=== PATIENT | male | born 1955 | race Caucasian/White ===

== ENCOUNTER → 2016-04-22 | Outpatient (CLI) | payer BC ==
[~2016-04-22] MED LIST: ACET1TAB43 PO; CIPR-226 PO; MULT-192 PO; PSYL3.4P5 PO
--- NOTE | 2016-04-22 19:19 | Diagnostic Imaging Report ---
EXAMINATION: Lumbar spine series. INDICATION: Back pain. FINDINGS: Alignment of the lumbar spine appears normal. The vertebral body heights appear maintained. There is disc space height loss at L5-S1 as well as lower lumbar facet arthropathy, most significant at L4-5 and L5-S1. Visualized bones of the pelvis demonstrates no acute abnormality. There is moderate osteoarthritic joint space narrowing within both hips. IMPRESSION: 1. Lower lumbar facet arthropathy with disc space height loss at L5-S1. The vertebral body heights are well maintained, and alignment is normal. Bilateral hip osteoarthritis is also noted. Dictated by: Dictated on workstation # [id number]
== END ==
LOC: RAD 18:56
PROVIDERS: ATTEND Nurse Practitioner Family
DX: M47.816 Spondylosis without myelopathy or radiculopathy, lumbar region (principal); M16.0 Bilateral primary osteoarthritis of hip
CPT/HCPCS: 72100

== ENCOUNTER 2016-07-22 13:23 | Outpatient (CLI) | payer BC ==
[~2016-07-22] VITALS: Ht 177.8 cm; Wt 88.7 kg
[2016-07-22] MEDS ORDERED: MULT-192 PO (13:32)
[2016-07-22] MEDS ORDERED: PSYL3.4P5 PO (13:32)
[2016-07-22 13:36] VITALS: BP 134/84
[2016-07-22 13:52] LABS: BILIRUBIN,URINE NEGATIVE (NEGATIVE); KETONES,URINE NEGATIVE (NEGATIVE); LEUKOCYTE ESTERASE ,URINE NEGATIVE (NEGATIVE); NITRITE,URINE NEGATIVE (NEGATIVE); PH,URINE 6 (5-9); PROTEIN,URINE NEGATIVE (NEGATIVE); UROBILINOGEN,URINE NORMAL (NORMAL)
--- NOTE | 2016-07-22 13:58 | Diagnostic Imaging Report ---
INDICATION: Preoperative evaluation for brachytherapy, no chest complaints. COMPARISON STUDIES: None. FINDINGS: Frontal and lateral views of the chest demonstrate small calcified granuloma in the right midlung. The lungs otherwise clear. The heart, mediastinum, pulmonary vascularity and visualized bony thorax are normal. IMPRESSION: Negative chest. Dictated by: Dictated on workstation # [id number]
[2016-07-29] MEDS ORDERED: ACET1TAB43 PO (13:20)
[2016-07-29] MEDS ORDERED: CIPR-226 PO (13:20)
== END 2016-07-22 14:55 | disposition home or self-care (01) ==
LOC: PREOP 13:23
PROVIDERS: ATTEND Radiology Radiation Oncology
DX: Z01.811 Encounter for preprocedural respiratory examination (principal); Z01.812 Encounter for preprocedural laboratory examination; C61 Malignant neoplasm of prostate
CPT/HCPCS: 71020; 81000

== ENCOUNTER 2016-07-23 10:31 | Outpatient (RCR) | payer BC ==
[~2016-07-23 10:31] MED LIST changes: -ACET1TAB43 PO; -CIPR-226 PO
--- NOTE | 2016-07-27 13:06 | ECHOCARDIOGRAPHY REPORT ---
DATE OF SERVICE: 07/23/2016 TWO-DIMENSIONAL ECHOCARDIOGRAM ORDERING PHYSICIAN: Dr. Cheryl Tomlinson. PRIMARY PHYSICIAN: Dr. Del Fernandez. DIAGNOSES: Irregular pulse, hypertension. FINDINGS: 1. Irregular rhythm secondary to the PACs and PVCs. 2. Left atrial diameter is normal. Left root diameter 3.1 cm. 3. Aortic diameter is 3.5 cm. 4. Normal LV function with an LVEF of 50% to 60%. Mild concentric LVH is noted with diastolic intraventricular septal diameter of 1.2 cm. 5. No wall motion abnormalities. 6. Normal RV size and function. 7. No pericardial effusion. 8. Mild diastolic dysfunction. 9. IVC diameter is 2.2 cm which may suggest increased right atrial pressure. VALVULAR STRUCTURE OF THE HEART: 1. Trace pulmonic regurgitation, trace aortic regurgitation. 2. There is mild tricuspid regurgitation with RVSP of 24 mmHg. There is mild mitral regurgitation. CONCLUSION: 1. Normal LV function with LVEF of 50% to 60%. 2. Mild concentric LVH is noted which suggests hypertensive heart disease. 3. There is no significant valvular heart disease. 4. Mild diastolic dysfunction is noted. 5. IVC is dilated, which may suggest increased right atrial pressure. Job ID: [id number] DocumentID: [id number] Dictated Date: 07/27/2016 12:21:17 Freelance Programmer/App Developer Date: 07/27/2016 12:35:16 Dictated By: IRON TOMLINSON MD MTDD
[2016-07-29] MEDS ORDERED: ACET1TAB43 PO (13:20)
[2016-07-29] MEDS ORDERED: CIPR-226 PO (13:20)
== END 2016-10-21 | disposition home or self-care (01) ==
LOC: CARD 10:31
PROVIDERS: ATTEND Internal Medicine Interventional Cardiology
DX: I10 Essential (primary) hypertension (principal); R00.2 Palpitations
CPT/HCPCS: 93225; 93226; 93306

== ENCOUNTER 2016-07-29 12:30 | Day surgery (SDC) | payer BC ==
[~2016-07-29] VITALS: Ht 177.8 cm; Wt 88.7 kg
[2016-07-29 12:30] VITALS: BP 134/85
[2016-07-29] MEDS ORDERED: LEVOFLOXACIN 500 MG/100 ML IV 100 ML ONE (13:09)
[2016-07-29] MEDS ORDERED: LEVOFLOXACIN 500 MG/100 ML IV 100 ML IV ONE (13:15)
--- NOTE | 2016-07-29 13:17 | Progress Note-Pre Operative ---
Pre-Operative Progress Note H&P Reviewed The H&P was reviewed, patient examined and no changes noted. Date H&P Reviewed: July 29, 2016 Time H&P Reviewed: 12:16 Pre-Operative Diagnosis: Prostate cancer cT1c, PSA 8.2, [place] 7 (4+3) KAREN GONCALVES MD July 29, 2016 13:17
[2016-07-29] MEDS ORDERED: ACET1TAB43 PO (13:20)
[2016-07-29] MEDS ORDERED: CIPR-226 PO (13:20)
--- NOTE | 2016-07-29 13:21 | Discharge Inst-Simple/Standard ---
Discharge Inst-Standard Discharge Medications New, Converted or Re-Newed RX: RX Given to Pt/Family Patient Instructions/Follow Up Plan of Care/Instructions/FU: Keep scheduled appointments with Dr. Hassan and Dr. Salcido as previously given. Activity as Tolerated: Yes Discharge Diet: No Restrictions KAREN SALCIDO MD July 29, 2016 13:21
[2016-07-29] MEDS ORDERED: LACTATED RINGERS 1,000 ML IV PRN (13:33)
[2016-07-29] MEDS ORDERED: fentaNYL INJECTION 100 MCG/2 ML AMP ONE (14:45)
[2016-07-29] MEDS ORDERED: MIDAZOLAM 2 MG/2 ML (VERSED) VIAL ONE (14:45)
[2016-07-29] MEDS ORDERED: DEXAMETHASONE PF 10 MG/ML (DECADRON) VIAL ONE (15:23)
[2016-07-29] MEDS ORDERED: proPOfol 200 MG/20 ML (DIPRIVAN) VIAL IV ONE (15:23)
[2016-07-29] MEDS ORDERED: SEVOFLURANE (ULTANE) 15 ML INHAL SOLN ONE ×2 (15:23→16:14)
[2016-07-29] MEDS ORDERED: LIDOCAINE PF 2% 10 ML (XYLOCAINE) AMP ONE (15:23)
[2016-07-29] MEDS ORDERED: LACTATED RINGERS 2,000 ML IV ONE (15:23)
[2016-07-29] MEDS ORDERED: ONDANSETRON 4 MG/2 ML (SDV) Z0FRAN ONE (15:23)
[2016-07-29] MEDS ORDERED: fentaNYL INJECTION 100 MCG/2 ML AMP IVP PRN (16:30)
[2016-07-29] MEDS: morphine INJ 10 MG/ML 1ML (SYR OR VIAL) IVP PRN ×2 (16:38→16:54)
--- NOTE | 2016-07-29 16:41 | Progress Note-Post Operative ---
Post-Operative Progess Note Surgeon (s)/Middle School Teacher (s) Surgeon KAREN GONCALVES MD Middle School Teacher: Linus MCKEON MD Pre-Operative Diagnosis Prostate cancer cT1c, PSA 8.2, [place] 7 (4+3) Post-Operative Diagnosis Same as pre-op Procedure & Operative Findings Date of Procedure 07/29/16 Procedure Preformed/Findings Prostate volume 40.86 cc Anesthesia Type General Estimated Blood Loss Estimated blood loss (mL): minimal Specimens/Packing Specimens Removed N/A Packing: N/A KAREN GONCALVES MD July 29, 2016 16:41
--- NOTE | 2016-07-29 16:59 | Diagnostic Imaging Report ---
INDICATION: Prostate cancer. IMPRESSION: 8.7 seconds of fluoroscopy was used by Dr. Salcido during brachytherapy seed implant into the prostate. A single digital image shows multiple brachytherapy seeds projecting over the prostate bed. Dictated by: Dictated on workstation # [id number]
[2016-07-29 17:25] VITALS: BP 127/86
[2016-07-29 17:55] VITALS: BP 122/82
[2016-07-29 18:50] VITALS: BP 132/82
[2016-07-29 19:05] VITALS: BP 132/82
== END 2016-07-29 19:05 | disposition home or self-care (01) ==
LOC: SDC 12:30
PROVIDERS: ATTEND Radiology Radiation Oncology
DX: C61 Malignant neoplasm of prostate (principal); Z87.891 Personal history of nicotine dependence
CPT/HCPCS: 0438T; 55875; 76965; 77290; 77332; 77336; 77470; 77778; 77790

== ENCOUNTER → 2016-10-05 | Outpatient (RCR) | payer BC ==
[~2016-10-05] MED LIST changes: +ACET1TAB43 PO; +CIPR-226 PO
== END | disposition home or self-care (01) ==
LOC: ONC 07-07 14:50
PROVIDERS: ATTEND Radiology Radiation Oncology
DX: Z51.0 Encounter for antineoplastic radiation therapy (principal); C61 Malignant neoplasm of prostate
CPT/HCPCS: 76873; 77290; 77300; 77301; 77334; 77336; 77338; 77385; 77470; 99215

== ENCOUNTER 2016-12-08 14:37 | Outpatient (RCR) | payer BC | END 2016-12-19 | disposition home or self-care (01) | LOC: ONC 14:37 | PROVIDERS: ATTEND Radiology Radiation Oncology | DX: Z51.0 Encounter for antineoplastic radiation therapy (principal); C61 Malignant neoplasm of prostate | CPT/HCPCS: 77336; 77385; 99213 ==

== ENCOUNTER 2016-12-31 16:13 | Outpatient (RCR) | payer BC | END 2017-03-31 | disposition home or self-care (01) | LOC: ONC 16:13 | PROVIDERS: ATTEND Radiology Radiation Oncology | DX: C61 Malignant neoplasm of prostate (principal); Z87.891 Personal history of nicotine dependence | CPT/HCPCS: 77295; 77336 ==

== ENCOUNTER 2017-06-08 14:22 | Outpatient (RCR) | payer BC | END 2017-09-06 | disposition home or self-care (01) | LOC: ONC 14:22 | PROVIDERS: ATTEND Radiology Radiation Oncology | DX: C61 Malignant neoplasm of prostate (principal); Z87.891 Personal history of nicotine dependence | CPT/HCPCS: 99213 ==

== ENCOUNTER 2020-09-01 12:05 | Inpatient (IN) | payer BC ==
[~2020-09-01] VITALS: Ht 177 cm; Wt 90.0 kg
[2020-09-01 12:30] LABS: BASOPHILS % (AUTO) 0 % (0-10); EOSINOPHILS % (AUTO) 0 % (0-10); HEMATOCRIT 45 % (40-54); HEMOGLOBIN 15.4 g/dL (13.3-17.7); LYMPHOCYTES % (AUTO) 28 % (12-44); MEAN CORPUSCULAR HEMOGLOBIN 31 pg (25-34); MEAN CORPUSCULAR HGB CONC 34 g/dL (32-36); MEAN CORPUSCULAR VOLUME 92 fL (80-99); MEAN PLATELET VOLUME 9.9 fL (9.0-12.2); MONOCYTES # (AUTO) 0.2 10^3/uL (0.0-1.0); MONOCYTES % (AUTO) 5 % (0-12); NEUTROPHILS # (AUTO) 2.4 10^3/uL (1.8-7.8); NEUTROPHILS % (AUTO) 67 % (42-75); PLATELET COUNT 117 10^3/uL (130-400); WHITE BLOOD COUNT 3.6 10^3/uL (4.3-11.0)
--- NOTE | 2020-09-01 12:31 | ED Cough/URI ---
General Chief Complaint: Respiratory Problems Stated Complaint: COVID POSITIVE/LOW O2 SAT- 85 Source: patient Exam Limitations: no limitations History of Present Illness Date Seen by Provider: Sep 01, 2020 Time Seen by Provider: 12:10 Initial Comments To ER with c/o low O2 saturation as measured by sisters SpO2 monitor at home. Pt became symtomatic Wednesday night 08/27 and tested positive for COVID yesterday 08/31 at [facility]. His medical history is of prostate cancer treated with brachytherapy seeds. No pre-existing lung disease. He complains of insomnia, general body aches, severe overall fatigue. No nausea but he does not have much appetite either. No diarrhea. Timing/Duration: constant, getting worse Severity/Quality: moderate Associated Symptoms: cough, shortness of breath Allergies and Home Medications Allergies Coded Allergies: No Known Drug Allergies (Unverified , 07/22/16) Home Medications Acetaminophen with Codeine 1 Each Tablet, 1 EACH PO PRN PRN for PAIN-MILD Prescribed by: KAREN GONCALVES on 07/29/16 1320 Ciprofloxacin HCl 250 Mg Tablet, 250 MG PO BID Prescribed by: KAREN GONCALVES on 07/29/16 1320 Multivitamin 1 Each Tab.chew, 1 EACH PO DAILY, (Reported) Psyllium Husk/Aspartame 3.4 Gm Powd.pack, 3.4 GM PO DAILY, (Reported) Patient Home Medication List Home Medication List Reviewed: Yes Review of Systems Review of Systems Constitutional: see HPI EENTM: see HPI Respiratory: see HPI, dyspnea on exertion, short of breath Cardiovascular: no symptoms reported Genitourinary: no symptoms reported Musculoskeletal: no symptoms reported Skin: no symptoms reported Psychiatric/Neurological: No Symptoms Reported Hematologic/Lymphatic: No Symptoms Reported Immunological/Allergic: no symptoms reported Past Ztoebtt-Ydsoha-Jcooxb Hx Patient Social History Former Smoker, Quit: July 22, 2001 Recent Hopitalizations: No Immunizations Up To Date Date of Influenza Vaccine: Dec 09, 2015 Seasonal Allergies Seasonal Allergies: No Past Medical History Reproductive Disorders: No Sexually Transmitted Disease: No HIV/AIDS: No Prostate Problems Loss of Vision: Bilateral Hearing Impairment: Denies Prostate Adverse Reaction/Blood Tranf: No Physical Exam Vital Signs - First Documented 09/01/20 12:12 Temp 36.7 Pulse 79 Resp 20 B/P (MAP) 131/80 (97) Capillary Refill : Height: 5'10.00" Weight: 195lbs. 8.0oz. 88.007867gw; 28.1 BMI Method: General Appearance: WD/WN, no apparent distress, other (No distress, ambulates to the room without assistance. Alert and oriented very pleasant. Oxygen saturation on arrival was 90% and dropped to 88% shortly thereafter. Was given supplemental oxygen at 2 L per nasal cannula.) Eyes: Bilateral Eye Normal Inspection, Bilateral Eye PERRL, Bilateral Eye EOMI HEENT: PERRL/EOMI, normal ENT inspection Neck: non-tender, full range of motion Respiratory: no respiratory distress, no accessory muscle use, other (Crackles throughout diminished left base) Cardiovascular: regular rate, rhythm, no murmur Gastrointestinal: normal bowel sounds, non tender, soft Extremities: normal range of motion, non-tender Neurologic/Psychiatric: alert, normal mood/affect, oriented x 3 Skin: normal color, warm/dry Progress/Results/Core Measures Suspected Sepsis SIRS Temperature: Pulse: Respiratory Rate: Laboratory Tests 09/01/20 12:20: White Blood Count 3.6L Blood Pressure / Mean: Laboratory Tests 09/01/20 12:20: Creatinine 1.00, Platelet Count 117L, Total Bilirubin 0.4 Results/Orders Lab Results Laboratory Tests Test 09/01/20 12:20 Range/Units White Blood Count 3.6 L 4.3-11.0 10^3/uL Red Blood Count 4.95 4.30-5.52 10^6/uL Hemoglobin 15.4 13.3-17.7 g/dL Hematocrit 45 40-54 % Mean Corpuscular Volume 92 80-99 fL Mean Corpuscular Hemoglobin 31 25-34 pg Mean Corpuscular Hemoglobin Concent 34 32-36 g/dL Red Cell Distribution Width 12.9 10.0-14.5 % Platelet Count 117 L 130-400 10^3/uL Mean Platelet Volume 9.9 9.0-12.2 fL Immature Granulocyte % (Auto) 0 % Neutrophils (%) (Auto) 67 42-75 % Lymphocytes (%) (Auto) 28 12-44 % Monocytes (%) (Auto) 5 0-12 % Eosinophils (%) (Auto) 0 0-10 % Basophils (%) (Auto) 0 0-10 % Neutrophils # (Auto) 2.4 1.8-7.8 10^3/uL Lymphocytes # (Auto) 1.0 1.0-4.0 10^3/uL Monocytes # (Auto) 0.2 0.0-1.0 10^3/uL Eosinophils # (Auto) 0.0 0.0-0.3 10^3/uL Basophils # (Auto) 0.0 0.0-0.1 10^3/uL Immature Granulocyte # (Auto) 0.0 0.0-0.1 10^3/uL Percent Immature Platelet Fraction 4.1 0.0-7.6 % D-Dimer 1.12 H 0.00-0.49 UG/ML Sodium Level 136 135-145 MMOL/L Potassium Level 3.8 3.6-5.0 MMOL/L Chloride Level 99 98-107 MMOL/L Carbon Dioxide Level 26 21-32 MMOL/L Anion Gap 11 5-14 MMOL/L Blood Urea Nitrogen 18 7-18 MG/DL Creatinine 1.00 0.60-1.30 MG/DL Estimat Glomerular Filtration Rate > 60 BUN/Creatinine Ratio 18 Glucose Level 102 70-105 MG/DL Calcium Level 8.6 8.5-10.1 MG/DL Corrected Calcium 8.8 8.5-10.1 MG/DL Total Bilirubin 0.4 0.1-1.0 MG/DL Aspartate Amino Transf (AST/SGOT) 133 H 5-34 U/L Alanine Aminotransferase (ALT/SGPT) 61 H 0-55 U/L Alkaline Phosphatase 57 40-136 U/L C-Reactive Protein High Sensitivity 5.46 H 0.00-0.50 MG/DL Total Protein 6.9 6.4-8.2 GM/DL Albumin 3.7 3.2-4.5 GM/DL Procalcitonin 0.11 H <0.10 NG/ML My Orders Orders - WENDI NELSON APRN Fibrin Degradation Products (09/01/20 12:07) Cbc With Automated Diff (09/01/20 12:07) Hs C Reactive Protein (09/01/20 12:07) Comprehensive Metabolic Panel (09/01/20 12:07) Ua Culture If Indicated (09/01/20 12:07) Procalcitonin (Pct) (09/01/20 12:07) Ed Iv/Invasive Line Start (09/01/20 12:07) Chest 1 View, Ap/Pa Only (09/01/20 12:07) Ct Angio Chest W (09/01/20 12:51) Medications Given in ED Current Medications Medications Dose Ordered Sig/Oksana Route Start Time Stop Time Status Last Admin Dose Admin Sodium Chloride 100 ml ONCE ONCE IV 09/01/20 13:00 09/01/20 13:01 DC 09/01/20 13:10 83 ML Vital Signs/I&O 09/01/20 12:12 Temp 36.7 Pulse 79 Resp 20 B/P (MAP) 131/80 (97) Capillary Refill : Diagnostic Imaging Diagonstic Imaging: CT Comments NAME: VIRGINIE DIAZ [facility] REC#: [id number] PT STATUS: REG ER : 1955 PHYSICIAN: WENDI NELSON APRN ADMIT DATE: 09/01/20/ER Draft Date of Exam:09/01/20 CT ANGIO CHEST W PROCEDURE: CT angiography of the chest with contrast. TECHNIQUE: Multiple contiguous axial images were obtained through the chest after uneventful bolus administration of intravenous contrast. 3D reconstructed CTA MIP acquisitions were also performed. Auto Exposure Controls were utilized during the CT exam to meet ALARA standards for radiation dose reduction. INDICATION: COVID positive, hypoxia, elevated D-dimer. COMPARISON: Chest x-ray from 09/01/2020. FINDINGS: The pulmonary arteries are diagnostic to the segmental level. No filling defects are seen to indicate a pulmonary embolus. The heart is upper normal in size. There is no evidence of right heart strain. The aorta appears normal. No mediastinal adenopathy is seen. There is no pleural effusion or pneumothorax. Patchy groundglass and airspace opacities are seen throughout the lungs bilaterally with peripheral predominance. There is dependent atelectasis in the lungs bilaterally. No central endobronchial lesions are seen. No acute osseous abnormality is seen. Imaged portions of the upper abdomen demonstrate no acute abnormality. There is a simple-appearing cyst in the left liver measuring 1.6 cm in diameter. IMPRESSION: 1. No pulmonary embolus. 2. Groundglass and airspace opacities throughout the lungs bilaterally, consistent with known infection. Dictated on workstation # [id number] Dict: 09/01/20 1321 Trans: 09/01/20 1331 [id number] Interpreted by: SANTY HENDRIX MD Electronically signed by: Departure Impression Primary Impression: Hypoxia Additional Impression: COVID-19 Disposition: 09 ADMITTED INPATIENT Condition: Stable Admissions Decision to Admit Reason: Admit from ER (General) Departure-Patient Inst. Referrals: WILBUR MYLES MD (PCP/Family) Primary Care Physician WENDI NELSON APRN Sep 01, 2020 12:31
[2020-09-01 12:40] LABS: ALBUMIN 3.7 GM/DL (3.2-4.5)
[2020-09-01 12:41] LABS: CHLORIDE 99 MMOL/L (98-107); POTASSIUM 3.8 MMOL/L (3.6-5.0); SODIUM 136 MMOL/L (135-145)
[2020-09-01 12:42] LABS: CALCIUM 8.6 MG/DL (8.5-10.1)
[2020-09-01 12:43] LABS: GLUCOSE 102 MG/DL (70-105); TOTAL PROTEIN 6.9 GM/DL (6.4-8.2)
[2020-09-01 12:44] LABS: CARBON DIOXIDE 26 MMOL/L (21-32)
[2020-09-01 12:45] LABS: BILIRUBIN,TOTAL 0.4 MG/DL (0.1-1.0)
[2020-09-01 12:46] LABS: ALKALINE PHOSPHATASE 57 U/L (40-136)
[2020-09-01 12:47] LABS: GFR ESTIMATED > 60
[2020-09-01 12:48] LABS: BUN/CREATININE RATIO 18
[2020-09-01 12:50] LABS: ALANINE AMINOTRANSFERASE 61 U/L (0-55)
[2020-09-01] MEDS ORDERED: HOLD METFORMIN - RECEIVED CONTRAST 20 ML VIAL IV SCH (13:00)
[2020-09-01] MEDS ORDERED: IOHEXOL 350 MG/ML 100 ML (OMNIPAQUE 350) VIAL IV ONE (13:00)
[2020-09-01] MEDS ORDERED: NS 100 ML (IVPB) BAG IV ONE (13:00)
--- NOTE | 2020-09-01 13:13 | Diagnostic Imaging Report ---
EXAMINATION: Chest 1 view HISTORY: covid + COMPARISON: Chest radiograph from 07/22/2016. FINDINGS: Heart size and pulmonary vasculature are normal. There are patchy interstitial and airspace opacities within the mid and lower lungs. No pneumothorax or pleural effusion. The osseous structures are intact. IMPRESSION: 1. Patchy interstitial and airspace opacities within the lungs, compatible with history of COVID-19 and pneumonia. Dictated by: Dictated on workstation # [id number]
--- NOTE | 2020-09-01 13:32 | Diagnostic Imaging Report ---
PROCEDURE: CT angiography of the chest with contrast. TECHNIQUE: Multiple contiguous axial images were obtained through the chest after uneventful bolus administration of intravenous contrast. 3D reconstructed CTA MIP acquisitions were also performed. Auto Exposure Controls were utilized during the CT exam to meet ALARA standards for radiation dose reduction. INDICATION: COVID positive, hypoxia, elevated D-dimer. COMPARISON: Chest x-ray from 09/01/2020. FINDINGS: The pulmonary arteries are diagnostic to the segmental level. No filling defects are seen to indicate a pulmonary embolus. The heart is upper normal in size. There is no evidence of right heart strain. The aorta appears normal. No mediastinal adenopathy is seen. There is no pleural effusion or pneumothorax. Patchy groundglass and airspace opacities are seen throughout the lungs bilaterally with peripheral predominance. There is dependent atelectasis in the lungs bilaterally. No central endobronchial lesions are seen. No acute osseous abnormality is seen. Imaged portions of the upper abdomen demonstrate no acute abnormality. There is a simple-appearing cyst in the left liver measuring 1.6 cm in diameter. IMPRESSION: 1. No pulmonary embolus. 2. Groundglass and airspace opacities throughout the lungs bilaterally, consistent with known infection. Dictated by: Dictated on workstation # [id number]
--- NOTE | 2020-09-01 15:03 | History & Physical ---
History of Present Illness History of Present Illness Reason for visit/HPI PT IS A 64 Y/O MALE WHO IS A CLINIC PATIENT OF DR. MYLES FOR WHOM I AM DIRECTOR APPOINTMENT TODAY. THE PATIENT HAD BEEN FEELING SOMEWHAT POORLY FOR SEVERAL DAYS, WENT TO [facility] AND WAS DIAGNOSED WITH COVID-19 AND SENT HOME. TODAY HE REPORTEDLY STARTED TO FEEL INCREASINGLY SHORT OF BREATH, CONTACTED HIS SISTER WHO HAD THE ON-CALL PHYSICIAN PAGED, WE DISCUSSED HIS CASE AND SHE REPORTED AN OXYGEN SATURATION OF 85%- SHE WAS INSTRUCTED TO HAVE HIM TRANSPORTED TO THE EMERGENCY DEPARTMENT. IN THE ER - HE WAS EVALUATED, FOUND TO BE IN RESPIRATORY DISTRESS, OXYGEN ADMINISTERED, IMAGING OBTAINED AND ADMITTED TO THE HOSPITAL FOR STABILIZATION. PT REPORTS THAT HE HAS NOT BEEN AROUND ANYONE EXCEPT HIS AND SISTER SINCE WEDNESDAY. Date of Admission Sep 01, 2020 at 13:44 Date Seen by a Provider: Sep 01, 2020 Time Seen by a Provider: 15:00 Attending Physician Arianna Contreras MD Admitting Physician Galo Myles MD Consult Allergies and Home Medications Allergies Coded Allergies: No Known Drug Allergies (Unverified , 07/22/16) Home Medications Acetaminophen with Codeine 1 Each Tablet, 1 EACH PO PRN PRN for PAIN-MILD Prescribed by: KAREN GONCALVES on 07/29/16 1320 Last Action: Held Ciprofloxacin HCl 250 Mg Tablet, 250 MG PO BID Prescribed by: KAREN GONCALVES on 07/29/161319 Last Action: Held Multivitamin 1 Each Tab.chew, 1 EACH PO DAILY, (Reported) Last Action: Held Psyllium Husk/Aspartame 3.4 Gm Powd.pack, 3.4 GM PO DAILY, (Reported) Last Action: Held Patient Home Medication List Home Medication List Reviewed: Yes Past Yzxcbgm-Rdaapc-Vucqoa Hx Past Med/Social Hx: Reviewed Nursing Past Med/Soc Hx, Reviewed and Corrections made Patient Social History Marrital Status: Living Status: LIVES WITH SPOUSE, 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 Alcohol Use: Denies Use Recreational Drug Use: No Smoking Status: Never a Smoker Former Smoker, Quit: July 22, 2001 2nd Hand Smoke Exposure: No Physical Abuse Screen: No Sexual Abuse: No Recent Foreign Travel: No Contact w/other who traveled: No Recent Hopitalizations: No Recent Infectious Disease Expo: No Immunizations Up To Date Date of Influenza Vaccine: Dec 09, 2015 Seasonal Allergies Seasonal Allergies: No Past Medical History Surgeries: Adenoidectomy (AT AGE 4), Tonsillectomy (AT AGE 4) PROSATE SEED IMPLANTS Currently Using CPAP: No Currently Using BIPAP: No Reproductive: No Sexually Transmitted Disease: No HIV/AIDS: No Genitourinary: Prostate Problems Loss of Vision: Bilateral Hearing Impairment: Denies Cancer: Prostate (STATUS POST RADIATION SEED IMPLANTS) History of Blood Disorders: No Adverse Reaction to Blood Leal: No Family History No Pertinent Family Hx Review of Systems Constitutional: No chills, No fever; malaise, weakness EENTM: No hoarseness, No throat pain Respiratory: No cough; dyspnea on exertion, short of breath Cardiovascular: No chest pain Gastrointestinal: No abdominal pain, No nausea, No vomiting Genitourinary: no symptoms reported Musculoskeletal: muscle weakness Skin: no symptoms reported Psychiatric/Neurological: Denies Anxiety, Denies Depressed All Other Systems Reviewed Negative Unless Noted: Yes Physical Exam Vital Signs Vital Signs - First Documented 09/01/20 09/01/20 09/01/20 12:12 14:51 15:53 Temp 36.7 Pulse 79 Resp 20 B/P (MAP) 131/80 (97) Pulse Ox 94 O2 Delivery Nasal Cannula O2 Flow Rate 2.00 FiO2 24 Capillary Refill : Less Than 3 Seconds Height, Weight, BMI Height: 5'10.00" Weight: 195lbs. 8.0oz. 88.238081ny; 30.00 BMI Method: General Appearance: No Apparent Distress, WD/WN Eyes: Bilateral Eye Normal Inspection, Bilateral Eye PERRL, Bilateral Eye EOMI HEENT: PERRL/EOMI, Pharynx Normal Neck: Full Range of Motion, Normal Inspection, Non Tender, Supple Respiratory: Chest Non Tender, Lungs Clear, Normal Breath Sounds, No Accessory Muscle Use, No Respiratory Distress Cardiovascular: Regular Rate, Rhythm, No Murmur, Normal Peripheral Pulses Gastrointestinal: Normal Bowel Sounds, No Organomegaly, No Pulsatile Mass, Non Tender, Soft Rectal: Deferred Back: Normal Inspection, No CVA Tenderness, No Vertebral Tenderness Extremity: Normal Capillary Refill, Normal Range of Motion, Non Tender, No Calf Tenderness, No Pedal Edema, Other (RETICULAR PATTERN OF ) Neurologic/Psychiatric: Alert, Oriented x3, No Motor/Sensory Deficits, Normal Mood/Affect, 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 There are patchy interstitial and airspace opacities within the mid and lower lungs. No pneumothorax or pleural effusion. The osseous structures are intact. IMPRESSION: 1. Patchy interstitial and airspace opacities within the lungs, compatible with history of COVID-19 and pneumonia. - CT ANGIOGRAM IMPRESSION: 1. No pulmonary embolus. 2. Groundglass and airspace opacities throughout the lungs bilaterally, consistent with known infection. - PT ON IV DEXAMATHASONE AND REMDISIVIR ACUTE TRANSAMINASE ELEVATION LIKELY DUE TO MILD SHOCK - MONITOR LABS DVT PROPHYLAXIS WITH LOVENOX GI PROPHYLAXIS WITH PEPCID Admission Diagnosis RESPIRATORY DISTRESS COVID -19 POSITIVE HYPOXIA ACUTE TRANSAMINASE ELEVATION LIKELY DUE TO MILD SHOCK Admission Status: Inpatient Order (span 2 midnights) Reason for Inpatient Admission: PT WAS ADMITTED FOR DIAGNOSIS OF COVID-19, WILL REQUIRE AT LEAST 48-72HOURS FOR STABILIZATION OF SYMPTOMS. ARIANNA CONTRERAS MD Sep 01, 2020 15:03
[2020-09-01] MEDS ORDERED: LACTATED RINGERS 1,000 ML IV ONE (15:06)
[2020-09-01 15:13] VITALS: BP 119/68
[2020-09-01 15:53] VITALS: BP 119/68
[2020-09-01] MEDS: LACTATED RINGERS 1,000 ML IV SCH ×2 (16:55→23:55)
[2020-09-01] MEDS ORDERED: REMDESIVIR 200 MG/NS 250 ML IVPB IV NR ×2 (17:00)
[2020-09-01] MEDS: dexAMETHasone 6 MG TAB (DECADRON) PO SCH (17:56)
[2020-09-01 20:28] VITALS: BP 116/68
[2020-09-01] MEDS: FAMOTIDINE 20 MG (PEPCID) TABLET PO SCH (20:58)
[2020-09-01] MEDS: ENOXAPARIN 40 MG/0.4 ML (LOVENOX) SYR SC SCH (20:58)
[2020-09-01] MEDS: RT-ALBUTEROL INHALER HFA (VENTOLIN HFA) 18 GM IH SCH (21:21)
[2020-09-01 23:57] VITALS: BP 116/64
[2020-09-02] MEDS: RT-ALBUTEROL INHALER HFA (VENTOLIN HFA) 18 GM IH SCH ×4 (02:29→20:24)
[2020-09-02 03:33] VITALS: BP 111/62
[2020-09-02 04:36] LABS: HEMATOCRIT 41 % (40-54); HEMOGLOBIN 13.6 g/dL (13.3-17.7); MEAN CORPUSCULAR HEMOGLOBIN 31 pg (25-34); MEAN CORPUSCULAR HGB CONC 34 g/dL (32-36); MEAN CORPUSCULAR VOLUME 91 fL (80-99); MEAN PLATELET VOLUME 10.2 fL (9.0-12.2); PLATELET COUNT 112 10^3/uL (130-400); WHITE BLOOD COUNT 3.1 10^3/uL (4.3-11.0)
[2020-09-02 04:48] LABS: ALBUMIN 3.2 GM/DL (3.2-4.5)
[2020-09-02 04:49] LABS: CHLORIDE 102 MMOL/L (98-107); POTASSIUM 4.1 MMOL/L (3.6-5.0); SODIUM 137 MMOL/L (135-145)
[2020-09-02 04:51] LABS: GLUCOSE 139 MG/DL (70-105); TOTAL PROTEIN 5.9 GM/DL (6.4-8.2)
[2020-09-02 04:52] LABS: CARBON DIOXIDE 23 MMOL/L (21-32)
[2020-09-02 04:53] LABS: BILIRUBIN,TOTAL 0.3 MG/DL (0.1-1.0)
[2020-09-02 04:54] LABS: ALKALINE PHOSPHATASE 50 U/L (40-136)
[2020-09-02 04:55] LABS: CREATININE SERUM 0.82 MG/DL (0.60-1.30); GFR ESTIMATED > 60
[2020-09-02 04:56] LABS: BUN/CREATININE RATIO 16
[2020-09-02 04:58] LABS: ALANINE AMINOTRANSFERASE 59 U/L (0-55)
[2020-09-02] MEDS: LACTATED RINGERS 1,000 ML IV SCH (07:42)
--- NOTE | 2020-09-02 07:52 | Diagnostic Imaging Report ---
INDICATION: Covid-19. TECHNIQUE: Single view chest 4:02 AM. CORRELATION STUDY: 09/01/2020 FINDINGS: Heart size is enlarged. Vasculature overall within normal limits. Patchy bilateral pulmonary opacities are present particularly in the mid and lower lung lanier. Overall slightly increased in severity from prior. IMPRESSION: 1. Patchy bilateral pulmonary opacities are again demonstrated overall appearing slightly increased in severity from prior. Dictated by: Dictated on workstation # [id number]
[2020-09-02 08:11] VITALS: BP 129/70
[2020-09-02] MEDS: FAMOTIDINE 20 MG (PEPCID) TABLET PO SCH ×2 (09:11→20:46)
[2020-09-02] MEDS: dexAMETHasone 6 MG TAB (DECADRON) PO SCH (09:11)
[2020-09-02] MEDS ORDERED: MULT-1136 PO (10:07)
[2020-09-02] MEDS ORDERED: CHOL500044 PO (10:07)
[2020-09-02] MEDS ORDERED: IBUP-30 PO (10:07)
[2020-09-02 11:25] VITALS: BP 106/70
[2020-09-02 16:00] VITALS: BP 117/70
[2020-09-02] MEDS ORDERED: REMDESIVIR 100 MG/NS 250 ML IVPB IV SCH ×2 (17:00)
--- NOTE | 2020-09-02 17:23 | Progress Note ---
Subjective Subjective Date Seen by Provider: Sep 02, 2020 Time Seen by Provider: 07:20 No overnight events. Patient wanted to get up and walk today. No issues breathing. admitted yesterday for acute hypoxic respiratory failure due to covid. Review of Systems General: No Chills, No Night Sweats HEENT: No Head Aches Pulmonary: No Dyspnea; Cough Cardiovascular: No: Chest Pain, Palpitations Gastrointestinal: Other (taste and smell decreased.); No: Nausea, Vomiting Genitourinary: No Dysuria Musculoskeletal: No: neck pain Neurological: No: Weakness, Confusion All Other Systems Reviewed All Other Systems Reviewed: Yes Objective Exam Vital Signs Vital Signs Date Time Temp Pulse Resp B/P (MAP) Pulse Ox O2 Delivery O2 Flow Rate FiO2 09/02/20 16:00 36.6 70 20 117/70 (86) 92 High Flow N/C 8.00 09/02/20 15:39 90 Nasal Cannula 5.00 09/02/20 12:26 68 09/02/20 11:25 36.7 65 20 106/70 (82) 93 High Flow N/C 5.00 09/02/20 08:32 90 Nasal Cannula 5.00 09/02/20 08:11 36.7 69 18 129/70 (89) 88 High Flow N/C 5.00 09/02/20 08:00 Nasal Cannula 5.00 09/02/20 06:33 66 09/02/20 03:33 36.6 71 18 111/62 (78) 88 Nasal Cannula 5.00 09/02/20 02:29 5 Nasal Cannula 09/02/20 01:00 67 09/01/20 23:57 38.2 74 18 116/64 (81) 89 Nasal Cannula 5.00 09/01/20 21:25 92 Nasal Cannula 4.00 09/01/20 20:45 92 Nasal Cannula 3.00 09/01/20 20:28 35.7 88 20 116/68 (84) 91 Nasal Cannula 3.00 09/01/20 19:00 82 I & O 09/02/20 07:00 Intake Total 900 ml Balance 900 ml General Appearance: No Apparent Distress, WD/WN Eyes: Bilateral Eye Normal Inspection, Bilateral Eye PERRL, Bilateral Eye EOMI HEENT: PERRL/EOMI Neck: Full Range of Motion, Normal Inspection, Non Tender, Supple Respiratory: Chest Non Tender, Lungs Clear, Normal Breath Sounds, No Accessory Muscle Use, No Respiratory Distress Cardiovascular: Regular Rate, Rhythm, No Murmur, Normal Peripheral Pulses Gastrointestinal: Normal Bowel Sounds, No Organomegaly, No Pulsatile Mass, Non Tender, Soft Rectal: Deferred Back: Normal Inspection, No CVA Tenderness, No Vertebral Tenderness Extremity: Normal Capillary Refill, Normal Range of Motion, Non Tender, No Calf Tenderness, No Pedal Edema, Other Neurologic/Psychiatric: Alert, Oriented x3, No Motor/Sensory Deficits, Normal 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, 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 Skin: Normal Color, Warm/Dry Lymphatic: No Adenopathy Results Lab Laboratory Tests 09/02/20 04:18: White Blood Count 3.1L, Red Blood Count 4.43, Hemoglobin 13.6, Hematocrit 41, Mean Corpuscular Volume 91, Mean Corpuscular Hemoglobin 31, Mean Corpuscular Hemoglobin Concent 34, Red Cell Distribution Width 12.9, Platelet Count 112L, Mean Platelet Volume 10.2, Sodium Level 137, Potassium Level 4.1, Chloride Level 102, Carbon Dioxide Level 23, Anion Gap 12, Blood Urea Nitrogen 13, Creatinine 0.82, Estimat Glomerular Filtration Rate > 60, BUN/Creatinine Ratio 16, Glucose Level 139H, Calcium Level 8.0L, Corrected Calcium 8.6, Total Bilirubin 0.3, Aspartate Amino Transf (AST/SGOT) 146H, Alanine Aminotransferase (ALT/SGPT) 59H, Alkaline Phosphatase 50, Total Protein 5.9L, Albumin 3.2 Assessment/Plan Assessment/Plan Assessment and Plan 09/02/20- stopped IVF. monitoring LFTs, about the same. on 5L oxygen but not working hard to breath at all. Encouraged him to get up and walk around the room. will start azithromycin for 5 days to cover for pneumonia -continue covid protocol- dexamethasone, remdis dispo: continue inpatient- monitor as above. expect his oxygen requirements to decrease over next couple days. DVT ppx: lovenox. prognosis: good Problems: (1) COVID-19 (2) Acute respiratory failure with hypoxia (3) Elevated liver enzymes WILBUR MYLES MD Sep 02, 2020 17:23
[2020-09-02] MEDS ORDERED: AZITHROMYCIN 250 MG TAB (ZITHROMAX) PO ONE ×2 (17:30→17:31)
[2020-09-02 19:55] VITALS: BP 117/69
[2020-09-02] MEDS: ENOXAPARIN 40 MG/0.4 ML (LOVENOX) SYR SC SCH (20:46)
[2020-09-03 00:23] VITALS: BP 121/71
[2020-09-03] MEDS: RT-ALBUTEROL INHALER HFA (VENTOLIN HFA) 18 GM IH SCH ×4 (02:34→20:57)
[2020-09-03 04:10] VITALS: BP 134/71
[2020-09-03 05:58] LABS: ALBUMIN 3.3 GM/DL (3.2-4.5); CHLORIDE 103 MMOL/L (98-107); POTASSIUM 4.2 MMOL/L (3.6-5.0); SODIUM 139 MMOL/L (135-145)
[2020-09-03 05:59] LABS: CALCIUM 8.4 MG/DL (8.5-10.1)
[2020-09-03 06:01] LABS: GLUCOSE 130 MG/DL (70-105); TOTAL PROTEIN 6.2 GM/DL (6.4-8.2)
[2020-09-03 06:02] LABS: BILIRUBIN,TOTAL 0.3 MG/DL (0.1-1.0); CARBON DIOXIDE 25 MMOL/L (21-32)
[2020-09-03 06:04] LABS: ALKALINE PHOSPHATASE 48 U/L (40-136); CREATININE SERUM 0.79 MG/DL (0.60-1.30); GFR ESTIMATED > 60
[2020-09-03 06:05] LABS: BUN/CREATININE RATIO 24
[2020-09-03 06:07] LABS: ALANINE AMINOTRANSFERASE 91 U/L (0-55)
[2020-09-03 06:19] LABS: BASOPHILS % (AUTO) 0 % (0-10); EOSINOPHILS % (AUTO) 0 % (0-10); HEMATOCRIT 42 % (40-54); HEMOGLOBIN 14.3 g/dL (13.3-17.7); LYMPHOCYTES # (AUTO) 0.6 10^3/uL (1.0-4.0); LYMPHOCYTES % (AUTO) 12 % (12-44); MEAN CORPUSCULAR HEMOGLOBIN 31 pg (25-34); MEAN CORPUSCULAR HGB CONC 34 g/dL (32-36); MEAN CORPUSCULAR VOLUME 91 fL (80-99); MEAN PLATELET VOLUME 10.4 fL (9.0-12.2); MONOCYTES # (AUTO) 0.4 10^3/uL (0.0-1.0); MONOCYTES % (AUTO) 8 % (0-12); NEUTROPHILS # (AUTO) 3.6 10^3/uL (1.8-7.8); NEUTROPHILS % (AUTO) 79 % (42-75); PLATELET COUNT 151 10^3/uL (130-400); WHITE BLOOD COUNT 4.6 10^3/uL (4.3-11.0)
[2020-09-03 07:26] VITALS: BP 117/69
[2020-09-03] MEDS: FAMOTIDINE 20 MG (PEPCID) TABLET PO SCH ×2 (09:03→20:38)
[2020-09-03] MEDS: AZITHROMYCIN 250 MG TAB (ZITHROMAX) PO SCH (09:03)
[2020-09-03] MEDS: dexAMETHasone 6 MG TAB (DECADRON) PO SCH (09:03)
--- NOTE | 2020-09-03 09:12 | Progress Note ---
Subjective Subjective Date Seen by Provider: Sep 04, 2020 Time Seen by Provider: 13:00 No overnight events. He is on high flow nasal cannula. Patient reports he feels about the same as yesterday. Has a good appetite, awaiting lunch. Review of Systems General: No Chills, No Night Sweats HEENT: No Head Aches Pulmonary: No Dyspnea; Cough Cardiovascular: No: Chest Pain, Palpitations Gastrointestinal: Other (taste and smell decreased.); No: Nausea, Vomiting Genitourinary: No Dysuria Musculoskeletal: No: neck pain Neurological: No: Weakness, Confusion All Other Systems Reviewed All Other Systems Reviewed: Yes Objective Exam Vital Signs Vital Signs Date Time Temp Pulse Resp B/P (MAP) Pulse Ox O2 Delivery O2 Flow Rate FiO2 09/04/20 00:20 35.9 55 20 110/68 (82) 92 Vapotherm 35.00 60.00 09/03/20 20:58 92 Vapotherm 35.00 60 09/03/20 20:16 36.4 58 18 127/70 (89) 90 High Flow N/C 10.00 09/03/20 20:15 90 Nasal Cannula 6.00 09/03/20 16:08 36.4 63 18 119/72 (88) 90 High Flow N/C 10.00 09/03/20 14:41 92 Nasal Cannula 10.00 09/03/20 11:12 36.6 61 16 120/78 (92) 92 High Flow N/C 10.00 09/03/20 08:00 Nasal Cannula 10.00 09/03/20 07:32 93 Nasal Cannula 10.00 09/03/20 07:26 36.3 62 20 117/69 (85) 93 High Flow N/C 10.00 09/03/20 07:00 65 09/03/20 04:10 36.5 54 20 134/71 (92) 91 High Flow N/C 8.00 09/03/20 02:34 85 Nasal Cannula 8.00 l I & O 09/04/20 07:00 Intake Total 1172 ml Balance 1172 ml General Appearance: No Apparent Distress, WD/WN Eyes: Bilateral Eye Normal Inspection, Bilateral Eye PERRL, Bilateral Eye EOMI HEENT: PERRL/EOMI Neck: Full Range of Motion, Normal Inspection, Non Tender, Supple Respiratory: Chest Non Tender, No Accessory Muscle Use, No Respiratory Distress, Crackles Cardiovascular: Regular Rate, Rhythm, No Murmur, Normal Peripheral Pulses Gastrointestinal: Normal Bowel Sounds, No Organomegaly, No Pulsatile Mass, Non Tender, Soft Rectal: Deferred Back: Normal Inspection, No CVA Tenderness, No Vertebral Tenderness Extremity: Normal Capillary Refill, Normal Range of Motion, Non Tender, No Calf Tenderness, No Pedal Edema, Other Neurologic/Psychiatric: Alert, Oriented x3, No Motor/Sensory Deficits, Normal 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, 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 Skin: Normal Color, Warm/Dry Lymphatic: No Adenopathy Results Lab Laboratory Tests 09/03/20 05:27: White Blood Count 4.6, Red Blood Count 4.62, Hemoglobin 14.3, Hematocrit 42, Mean Corpuscular Volume 91, Mean Corpuscular Hemoglobin 31, Mean Corpuscular Hemoglobin Concent 34, Red Cell Distribution Width 13.0, Platelet Count 151, Mean Platelet Volume 10.4, Immature Granulocyte % (Auto) 0, Neutrophils (%) (Auto) 79H, Lymphocytes (%) (Auto) 12, Monocytes (%) (Auto) 8, Eosinophils (%) (Auto) 0, Basophils (%) (Auto) 0, Neutrophils # (Auto) 3.6, Lymphocytes # (Auto) 0.6L, Monocytes # (Auto) 0.4, Eosinophils # (Auto) 0.0, Basophils # (Auto) 0.0, Immature Granulocyte # (Auto) 0.0, Sodium Level 139, Potassium Level 4.2, Chloride Level 103, Carbon Dioxide Level 25, Anion Gap 11, Blood Urea Nitrogen 19H, Creatinine 0.79, Estimat Glomerular Filtration Rate > 60, BUN/Creatinine Ratio 24, Glucose Level 130H, Calcium Level 8.4L, Corrected Calcium 9.0, Total Bilirubin 0.3, Aspartate Amino Transf (AST/SGOT) 242H, Alanine Aminotransferase (ALT/SGPT) 91H, Alkaline Phosphatase 48, Total Protein 6.2L, Albumin 3.3 Assessment/Plan Assessment/Plan Assessment and Plan 09/02/20- stopped IVF. monitoring LFTs, about the same. on 5L oxygen but not working hard to breath at all. Encouraged him to get up and walk around the room. will start azithromycin for 5 days to cover for pneumonia -continue covid protocol- dexamethasone. 09/03/20- stopping remdesivir as he is improving and started improving prior to starting it. LFTs higher today. Encourage Incentive spirometry. Updated sister, she is rightfully concerned. But he is not working hard to breath. We will do a trial of vapotherm and see how he does with it. dispo: continue inpatient- monitor as above. expect his oxygen requirements to decrease over next couple days - sister inquired about transfer to [place]. Will keep evaluating. DVT ppx: lovenox. prognosis: good Problems: (1) COVID-19 (2) Acute respiratory failure with hypoxia (3) Elevated liver enzymes WILBUR MYLES MD Sep 03, 2020 09:12
[2020-09-03 11:12] VITALS: BP 120/78
[2020-09-03 14:47] LABS: ABG BASE EXCESS 1.3 MMOL/L (-2.5-2.5); ABG OXYGEN SATURATION 52 % (94-100); ABG PCO2 41 MMHG (35-45); ABG PH 7.41 (7.37-7.43); ABG TCO2 26.9 MMOL/L (21.0-31.0)
[2020-09-03 14:52] LABS: ABG PO2 33 MMHG (79-93); ALLENS TEST YES-POS; INSPIRED O2 10; PATIENT TEMP 36.6; VENTILATOR NO
[2020-09-03 16:08] VITALS: BP 119/72
[2020-09-03 20:16] VITALS: BP 127/70
[2020-09-03] MEDS: ENOXAPARIN 40 MG/0.4 ML (LOVENOX) SYR SC SCH (20:38)
[2020-09-04] VITALS (7 sets, daily range): BP systolic 109–143; BP diastolic 68–83
[2020-09-04] MEDS: RT-ALBUTEROL INHALER HFA (VENTOLIN HFA) 18 GM IH SCH ×4 (02:30→21:01)
[2020-09-04] MEDS: dexAMETHasone 6 MG TAB (DECADRON) PO SCH (08:38)
[2020-09-04] MEDS: AZITHROMYCIN 250 MG TAB (ZITHROMAX) PO SCH (08:38)
[2020-09-04] MEDS: FAMOTIDINE 20 MG (PEPCID) TABLET PO SCH ×2 (08:38→21:13)
--- NOTE | 2020-09-04 08:58 | Progress Note ---
Subjective Subjective Date Seen by Provider: Sep 04, 2020 Time Seen by Provider: 15:28 He was vapotherm overnight. The noise of the air blowing was annoying and bothersome. He was switched back to 10L NC this afternoon and his mood/attitude is better. He is feeling a little better overall. No new issues. He is frustrated and would like to go home but understands why he is here and is agreeable to stay until he is stable to go home. Review of Systems General: No Chills, No Night Sweats HEENT: No Head Aches Pulmonary: No Dyspnea; Cough Cardiovascular: No: Chest Pain, Palpitations Gastrointestinal: Other (taste and smell decreased.); No: Nausea, Vomiting Genitourinary: No Dysuria Musculoskeletal: No: neck pain Neurological: No: Weakness, Confusion All Other Systems Reviewed All Other Systems Reviewed: Yes Objective Exam Vital Signs Vital Signs Date Time Temp Pulse Resp B/P (MAP) Pulse Ox O2 Delivery O2 Flow Rate FiO2 09/04/20 08:24 36.0 57 20 119/73 (88) 93 Vapotherm 40.00 100.00 09/04/20 03:44 35.9 54 20 109/72 (84) 96 Vapotherm 40.00 100.00 09/04/20 02:31 92 Vapotherm 35.00 60 09/04/20 00:20 35.9 55 20 110/68 (82) 92 Vapotherm 35.00 60.00 09/03/20 20:58 92 Vapotherm 35.00 60 09/03/20 20:16 36.4 58 18 127/70 (89) 90 High Flow N/C 10.00 09/03/20 20:15 90 Nasal Cannula 6.00 09/03/20 16:08 36.4 63 18 119/72 (88) 90 High Flow N/C 10.00 09/03/20 14:41 92 Nasal Cannula 10.00 09/03/20 11:12 36.6 61 16 120/78 (92) 92 High Flow N/C 10.00 I & O 09/04/20 07:00 Intake Total 1622 ml Balance 1622 ml General Appearance: No Apparent Distress, WD/WN Eyes: Bilateral Eye Normal Inspection, Bilateral Eye PERRL, Bilateral Eye EOMI HEENT: PERRL/EOMI Neck: Full Range of Motion, Normal Inspection, Non Tender, Supple Respiratory: Chest Non Tender, No Accessory Muscle Use, No Respiratory Distress, Crackles Cardiovascular: Regular Rate, Rhythm, No Murmur, Normal Peripheral Pulses Gastrointestinal: Normal Bowel Sounds, No Organomegaly, No Pulsatile Mass, Non Tender, Soft Rectal: Deferred Back: Normal Inspection, No CVA Tenderness, No Vertebral Tenderness Extremity: Normal Capillary Refill, Normal Range of Motion, Non Tender, No Calf Tenderness, No Pedal Edema, Other Neurologic/Psychiatric: Alert, Oriented x3, No Motor/Sensory Deficits, Normal 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, 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 monitoring LFTs, about the same. on 5L oxygen but not working hard to breath at all. Encouraged him to get up and walk around the room. will start azithromycin for 5 days to cover for pneumonia -continue covid protocol- dexamethasone. 09/03/20- stopping remdesivir as he is improving and started improving prior to starting it. LFTs higher today. Encourage Incentive spirometry. Updated sister, she is rightfully concerned. But he is not working hard to breath. We will do a trial of vapotherm and see how he does with it. 09/04/20- on vapotherm- switched to 10L NC- and holding oxygen saturation 93- 94%. WBC, Hgb, platelets normal. LFTs elevated more today. Will give him an additional dose of dexamethasone 10mg one time via IV. Ordered a chest xray. ABG from yesterday looks to be venous and not arterial. He is slowly improving. I would like to get him home 09/06/20 dispo: continue inpatient- monitor as above. DVT ppx: lovenox. prognosis: good Problems: (1) COVID-19 (2) Acute respiratory failure with hypoxia (3) Elevated liver enzymes WILBUR MYLES MD Sep 04, 2020 08:58
--- NOTE | 2020-09-04 09:26 | Diagnostic Imaging Report ---
EXAMINATION: Chest, 1 view. HISTORY: Covid positive, pneumonia. COMPARISON: Chest radiograph 09/02/2020. FINDINGS: The heart size and pulmonary vasculature are stable. There are patchy interstitial airspace opacities throughout both lungs which are mildly increased from 09/02/2020. No pleural effusion or pneumothorax. The osseous structures are intact. IMPRESSION: Mildly increased patchy interstitial airspace opacities throughout both lungs, compatible with history of Covid 19 and pneumonia. The report was faxed to Infection Control by [email or web address]@9:24 AM. Dictated by: Dictated on workstation # [id number]
[2020-09-04 09:42] LABS: BASOPHILS % (AUTO) 0 % (0-10); EOSINOPHILS % (AUTO) 0 % (0-10); HEMATOCRIT 43 % (40-54); HEMOGLOBIN 14.4 g/dL (13.3-17.7); LYMPHOCYTES # (AUTO) 0.6 10^3/uL (1.0-4.0); LYMPHOCYTES % (AUTO) 11 % (12-44); MEAN CORPUSCULAR HEMOGLOBIN 31 pg (25-34); MEAN CORPUSCULAR HGB CONC 34 g/dL (32-36); MEAN CORPUSCULAR VOLUME 92 fL (80-99); MEAN PLATELET VOLUME 9.8 fL (9.0-12.2); MONOCYTES # (AUTO) 0.3 10^3/uL (0.0-1.0); MONOCYTES % (AUTO) 6 % (0-12); NEUTROPHILS # (AUTO) 4.4 10^3/uL (1.8-7.8); NEUTROPHILS % (AUTO) 83 % (42-75); PLATELET COUNT 196 10^3/uL (130-400); WHITE BLOOD COUNT 5.3 10^3/uL (4.3-11.0)
[2020-09-04 10:03] LABS: ALANINE AMINOTRANSFERASE 144 U/L (0-55); ALBUMIN 3.3 GM/DL (3.2-4.5); ALKALINE PHOSPHATASE 55 U/L (40-136); BILIRUBIN,TOTAL 0.6 MG/DL (0.1-1.0); BUN/CREATININE RATIO 21; CALCIUM 8.5 MG/DL (8.5-10.1); CARBON DIOXIDE 26 MMOL/L (21-32); CHLORIDE 103 MMOL/L (98-107); GFR ESTIMATED > 60; GLUCOSE 162 MG/DL (70-105); POTASSIUM 4.2 MMOL/L (3.6-5.0); SODIUM 137 MMOL/L (135-145); TOTAL PROTEIN 6.3 GM/DL (6.4-8.2)
[2020-09-04] MEDS: ENOXAPARIN 40 MG/0.4 ML (LOVENOX) SYR SC SCH (21:12)
[2020-09-05] VITALS (7 sets, daily range): BP systolic 117–143; BP diastolic 71–81
[2020-09-05] MEDS: RT-ALBUTEROL INHALER HFA (VENTOLIN HFA) 18 GM IH SCH ×4 (03:23→20:38)
[2020-09-05 06:19] LABS: BASOPHILS % (AUTO) 0 % (0-10); EOSINOPHILS % (AUTO) 0 % (0-10); HEMATOCRIT 44 % (40-54); HEMOGLOBIN 14.8 g/dL (13.3-17.7); LYMPHOCYTES # (AUTO) 0.6 10^3/uL (1.0-4.0); LYMPHOCYTES % (AUTO) 13 % (12-44); MEAN CORPUSCULAR HEMOGLOBIN 30 pg (25-34); MEAN CORPUSCULAR HGB CONC 33 g/dL (32-36); MEAN CORPUSCULAR VOLUME 91 fL (80-99); MEAN PLATELET VOLUME 9.9 fL (9.0-12.2); MONOCYTES # (AUTO) 0.6 10^3/uL (0.0-1.0); MONOCYTES % (AUTO) 12 % (0-12); NEUTROPHILS # (AUTO) 3.4 10^3/uL (1.8-7.8); NEUTROPHILS % (AUTO) 74 % (42-75); PLATELET COUNT 210 10^3/uL (130-400); WHITE BLOOD COUNT 4.6 10^3/uL (4.3-11.0)
[2020-09-05 06:30] LABS: ALBUMIN 3.6 GM/DL (3.2-4.5)
[2020-09-05 06:31] LABS: CHLORIDE 102 MMOL/L (98-107); POTASSIUM 4.2 MMOL/L (3.6-5.0); SODIUM 139 MMOL/L (135-145)
[2020-09-05 06:32] LABS: CALCIUM 8.8 MG/DL (8.5-10.1)
[2020-09-05 06:33] LABS: GLUCOSE 121 MG/DL (70-105); TOTAL PROTEIN 6.6 GM/DL (6.4-8.2)
[2020-09-05 06:34] LABS: CARBON DIOXIDE 25 MMOL/L (21-32)
[2020-09-05 06:35] LABS: BILIRUBIN,TOTAL 0.8 MG/DL (0.1-1.0)
[2020-09-05 06:37] LABS: ALKALINE PHOSPHATASE 64 U/L (40-136); CREATININE SERUM 0.81 MG/DL (0.60-1.30); GFR ESTIMATED > 60
[2020-09-05 06:38] LABS: BUN/CREATININE RATIO 22
[2020-09-05 06:40] LABS: ALANINE AMINOTRANSFERASE 184 U/L (0-55)
[2020-09-05] MEDS: FAMOTIDINE 20 MG (PEPCID) TABLET PO SCH ×2 (08:58→20:08)
[2020-09-05] MEDS: dexAMETHasone 6 MG TAB (DECADRON) PO SCH (08:59)
[2020-09-05] MEDS: AZITHROMYCIN 250 MG TAB (ZITHROMAX) PO SCH (08:59)
[2020-09-05] MEDS: RT-ALBUTEROL INHALER HFA (VENTOLIN HFA) 18 GM IH PRN (12:30)
[2020-09-05] MEDS ORDERED: LORazepam INJ 2 MG/ML (ATIVAN) VIAL ONE (13:14)
--- NOTE | 2020-09-05 15:46 | Progress Note ---
Subjective Subjective Date Seen by Provider: Sep 05, 2020 Time Seen by Provider: 13:00 Patient did well on 10L oxygen NC overnight. But got up and took a shower and then near end of his shower he had a panic attack- he was changed back over to vapotherm. I attempted to switch him back to 10L NC but he stay around 88 -90 oxygen saturation. So he was switched back to vapotherm. Pt reports being tired, anxious, nervous and not knowing what he should do. Review of Systems General: No Chills, No Night Sweats HEENT: No Head Aches Pulmonary: No Dyspnea; Cough Cardiovascular: No: Chest Pain, Palpitations Gastrointestinal: Other (taste and smell decreased but improving); No: Nausea, Vomiting Genitourinary: No Dysuria Musculoskeletal: No: neck pain Neurological: No: Weakness, Confusion All Other Systems Reviewed All Other Systems Reviewed: Yes Objective Exam Vital Signs Vital Signs - First Documented 09/01/20 09/01/20 09/01/20 12:12 14:51 15:53 Temp 36.7 Pulse 79 Resp 20 B/P (MAP) 131/80 (97) Pulse Ox 94 O2 Delivery Nasal Cannula O2 Flow Rate 2.00 FiO2 24 Capillary Refill : Less Than 3 Seconds General Appearance: WD/WN, Mild Distress Eyes: Bilateral Eye Normal Inspection, Bilateral Eye PERRL, Bilateral Eye EOMI HEENT: PERRL/EOMI Neck: Full Range of Motion, Normal Inspection, Non Tender, Supple Respiratory: Chest Non Tender, Lungs Clear, Normal Breath Sounds, No Accessory Muscle Use, No Respiratory Distress; No Crackles Cardiovascular: Regular Rate, Rhythm, No Murmur, Normal Peripheral Pulses Gastrointestinal: Normal Bowel Sounds, No Organomegaly, No Pulsatile Mass, Non Tender, Soft Rectal: Deferred Back: Normal Inspection, No CVA Tenderness, No Vertebral Tenderness Extremity: Normal Capillary Refill, Normal Range of Motion, Non Tender, No Calf Tenderness, No Pedal Edema, Other Neurologic/Psychiatric: Alert, Oriented x3, No Motor/Sensory Deficits, Normal 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, 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 Skin: Normal Color, Warm/Dry Lymphatic: No Adenopathy Results Lab Laboratory Tests 09/05/20 05:47: White Blood Count 4.6, Red Blood Count 4.87, Hemoglobin 14.8, Hematocrit 44, Mean Corpuscular Volume 91, Mean Corpuscular Hemoglobin 30, Mean Corpuscular Hemoglobin Concent 33, Red Cell Distribution Width 12.8, Platelet Count 210, Mean Platelet Volume 9.9, Immature Granulocyte % (Auto) 0, Neutrophils (%) (Auto) 74, Lymphocytes (%) (Auto) 13, Monocytes (%) (Auto) 12, Eosinophils (%) (Auto) 0, Basophils (%) (Auto) 0, Neutrophils # (Auto) 3.4, Lymphocytes # (Auto) 0.6L, Monocytes # (Auto) 0.6, Eosinophils # (Auto) 0.0, Basophils # (Auto) 0.0, Immature Granulocyte # (Auto) 0.0, Sodium Level 139, Potassium Level 4.2, Chloride Level 102, Carbon Dioxide Level 25, Anion Gap 12, Blood Urea Nitrogen 18, Creatinine 0.81, Estimat Glomerular Filtration Rate > 60, BUN/Creatinine Ratio 22, Glucose Level 121H, Calcium Level 8.8, Corrected Calcium 9.1, Total Bilirubin 0.8, Aspartate Amino Transf (AST/SGOT) 290H, Alanine Aminotransferase (ALT/SGPT) 184H, Alkaline Phosphatase 64, Total Protein 6.6, Albumin 3.6 Assessment/Plan Assessment/Plan Assessment and Plan 09/02/20- stopped IVF. monitoring LFTs, about the same. on 5L oxygen but not working hard to breath at all. Encouraged him to get up and walk around the room. will start azithromycin for 5 days to cover for pneumonia -continue covid protocol- dexamethasone. 09/03/20- stopping remdesivir as he is improving and started improving prior to starting it. LFTs higher today. Encourage Incentive spirometry. Updated sister, she is rightfully concerned. But he is not working hard to breath. We will do a trial of vapotherm and see how he does with it. 09/04/20- on vapotherm- switched to 10L NC- and holding oxygen saturation 93- 94%. WBC, Hgb, platelets normal. LFTs elevated more today. Will give him an additional dose of dexamethasone 10mg one time via IV. Ordered a chest xray. ABG from yesterday looks to be venous and not arterial. He is slowly improving. I would like to get him home 09/06/20 09/05/20- a little set back with panic attack today. Gave him 0.5mg lorazepam IV to help calm him down. Lungs were completely clear on auscultation. He was looking good this AM- ate all his breakfast and was feeling good until he took a shower then the panic attack hit him. Tried to go to 10L high flow- did not stay >90% so put back on vapotherm. dispo: continue inpatient- monitor as above. DVT ppx: lovenox. prognosis: good Problems: (1) COVID-19 (2) Acute respiratory failure with hypoxia (3) Elevated liver enzymes (4) Stress WILBUR MYLES MD Sep 05, 2020 15:46
[2020-09-05] MEDS: MELATONIN 10 MG TABLET PO SCH (20:08)
[2020-09-05] MEDS: ENOXAPARIN 40 MG/0.4 ML (LOVENOX) SYR SC SCH (20:09)
[2020-09-05] MEDS ORDERED: MELATONIN 3 MG TABLET PO SCH (21:00)
[2020-09-06] VITALS (15 sets, daily range): BP systolic 117–152; BP diastolic 70–102
[2020-09-06] MEDS: RT-ALBUTEROL INHALER HFA (VENTOLIN HFA) 18 GM IH SCH ×4 (03:39→21:29)
[2020-09-06] MEDS: FAMOTIDINE 20 MG (PEPCID) TABLET PO SCH ×2 (09:19→20:42)
[2020-09-06] MEDS: AZITHROMYCIN 250 MG TAB (ZITHROMAX) PO SCH (09:20)
[2020-09-06] MEDS: dexAMETHasone 6 MG TAB (DECADRON) PO SCH (09:20)
[2020-09-06 09:34] LABS: ALANINE AMINOTRANSFERASE 182 U/L (0-55); ALBUMIN 3.4 GM/DL (3.2-4.5); ALKALINE PHOSPHATASE 67 U/L (40-136); BILIRUBIN,TOTAL 1.1 MG/DL (0.1-1.0); BUN/CREATININE RATIO 24; CALCIUM 8.5 MG/DL (8.5-10.1); CARBON DIOXIDE 23 MMOL/L (21-32); CHLORIDE 104 MMOL/L (98-107); CREATININE SERUM 0.82 MG/DL (0.60-1.30); GFR ESTIMATED > 60; GLUCOSE 96 MG/DL (70-105); POTASSIUM 3.8 MMOL/L (3.6-5.0); SODIUM 136 MMOL/L (135-145); TOTAL PROTEIN 6.4 GM/DL (6.4-8.2)
[2020-09-06] MEDS: ALPRAZolam 0.5 MG (XANAX) TAB PO PRN ×2 (11:35→20:43)
--- NOTE | 2020-09-06 11:51 | Pulmonary Consultation ---
History of Present Illness History of Present Illness Date Seen by Provider: Sep 06, 2020 Time Seen by Provider: 11:30 Date of Admission History of Present Illness 64 y old man presented with viral syndrome and was diagnosed at outside clinic as covid +; since th epatient started to experience SOB, he was referree to ED and was found to have acute hypoxemic resp failure due to COVID PNA. Pt was started on decadron and azithromicin. Continue to have SOB with exercise; he is on vapotherm, slowly reduced to 25%. 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 Tobacco Use?: No Smoking Status: Former Smoker Smokeless Tobacco Frequency: Former User Use of E-Cig and/or Vaping dev: No Substance use?: No Alcohol Use?: No Pt stated abuse/neglect: No Immunizations Up To Date Influenza Vaccine Up-to-Date: Yes; Up-to-Date Current Status Advance Directives: No Communicates: Verbally Primary Language: [place] Preferred Spoken Language: [place] Is interpretation needed?: Yes Implanted or Applied Medical D: None Past Medical History prostate seeds implant tonsilectomy Review of Systems Constitutional: weakness Respiratory: cough, short of breath Cardiovascular: no symptoms reported Gastrointestinal: no symptoms reported Genitourinary: no symptoms reported Musculoskeletal: no symptoms reported Psychiatric/Neurological: No Symptoms Reported Sepsis Event Evaluation Height, Weight, BMI Height: 5'10.00" Weight: 195lbs. 8.0oz. [id number]; 30.38 BMI Method: Exam Exam Patient acknowledged, consented, and participated in this virtual visit which was conducted using real time audio/video Vital Signs Date Time Temp Pulse Resp B/P (MAP) Pulse Ox O2 Delivery O2 Flow Rate FiO2 09/06/20 08:24 90 Vapotherm 25.00 80 09/06/20 08:00 High Flow N/C 25.00 100 09/06/20 07:21 36.6 69 20 117/70 (86) 90 Vapotherm 25.00 80.00 09/06/20 03:47 36.5 69 18 129/77 (94) 93 Vapotherm 25.00 80.00 09/06/20 03:40 95 Vapotherm 25.00 09/05/20 23:59 36.8 73 18 117/71 (86) 92 Vapotherm 25.00 80.00 09/05/20 20:50 36.6 74 18 128/78 (95) 94 Vapotherm 25.00 80.00 09/05/20 20:38 91 Vapotherm 25.00 80 09/05/20 20:00 Vapotherm 25.00 80 09/05/20 17:00 36.2 78 20 123/81 (95) 93 Vapotherm 25.00 60.00 09/05/20 15:21 94 Vapotherm 25.00 80 09/05/20 12:30 94 Vapotherm 30.00 80 I & O 09/06/20 07:00 Intake Total 2265 ml Output Total 350 ml Balance 1915 ml Height & Weight Height: 5'10.00" Weight: 195lbs. 8.0oz. 88.247418fu; 30.38 BMI Method: General Appearance: WD/WN, Mild Distress HEENT: PERRL/EOMI Neck: Full Range of Motion, Normal Inspection, Non Tender, Supple Respiratory: Chest Non Tender, Lungs Clear, Normal Breath Sounds, No Accessory Muscle Use, No Respiratory Distress; No Crackles; Rhonci Cardiovascular: Regular Rate, Rhythm, No Murmur, Normal Peripheral Pulses Capillary Refill: Less Than 3 Seconds Gastrointestinal: normal bowel sounds, non tender, soft Extremity: Normal Capillary Refill, Normal Range of Motion, Non Tender, No Calf Tenderness, No Pedal Edema, Other Neurologic/Psychiatric: Alert, Oriented x3, No Motor/Sensory Deficits, Normal 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, 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 Skin: Normal Color, Warm/Dry Lymphatic: No Adenopathy Results Lab Laboratory Tests 09/05/20 05:47 09/06/20 09:03 Assessment/Plan Assessment/Plan Acute hypoxemic resp failure in the context of COVID 19 PNA -o2 vapotherm -dexamethasone to be continued -ABG repeated/ consider BIPAP at night if worsening resp status -patient did have symptoms starting last wednesday- , hence is outside the remdesivir window ( LFTs are elevated as well, hence the risks appear to be higher than the benefits) -monitor for acute resp failure: ABG and cxray today; pt is being transferred to ICU PE ro upon admission -we krishna check d dimer: if high we will repeat CT angio DVT prophylaxis on board chart/ labs/ diagnostics were reviewed pt visualized and auscultated with the EKO dw pcp Dr. Dorantes thank you for involving us in Mr Grewal's care JOSÉ WHELAN MD Sep 06, 2020 11:51
[2020-09-06 12:36] LABS: ABG BASE EXCESS 0.3 MMOL/L (-2.5-2.5); ABG OXYGEN SATURATION 95 % (94-100); ABG PCO2 29 MMHG (35-45); ABG PH 7.51 (7.37-7.43); ABG PO2 79 MMHG (79-93)
[2020-09-06 12:37] LABS: ALLENS TEST YES-POS; INSPIRED O2 25 L; VENTILATOR NO
[2020-09-06 12:38] LABS: PATIENT TEMP 98.4
--- NOTE | 2020-09-06 13:30 | Diagnostic Imaging Report ---
INDICATION: Covid 19 positive pneumonia. TIME OF EXAM: 1:04 PM CORRELATION is made with prior chest from 09/04/2020. Patchy airspace infiltrates in both lungs persist. There has been some improved aeration to the right upper lobe since prior. Left lung and right base are about the same. There is no effusion or pneumothorax. IMPRESSION: Bilateral pulmonary infiltrates showing some improvement in the right upper lobe when compared with exam 2 days earlier. Dictated by: Dictated on workstation # [id number]
--- NOTE | 2020-09-06 16:13 | Progress Note ---
Subjective Subjective Date Seen by Provider: Sep 06, 2020 Time Seen by Provider: 16:08 Patient had another panic attack today. He remembers the noise of the TV being too loud then he focused on the vapotherm air blowing and how loud it was. Then staff constantly telling him what to do. He felt overwhelmed. He denies any SOB or increased work of breathing. He feels frustrated and does not understand why this is happening. Review of Systems General: No Chills, No Night Sweats HEENT: No Head Aches Pulmonary: No Dyspnea; Cough Cardiovascular: No: Chest Pain, Palpitations Gastrointestinal: Other (taste and smell decreased but improving); No: Nausea, Vomiting Genitourinary: No Dysuria Musculoskeletal: No: neck pain Neurological: No: Weakness, Confusion All Other Systems Reviewed All Other Systems Reviewed: Yes Objective Exam Vital Signs Vital Signs Date Time Temp Pulse Resp B/P (MAP) Pulse Ox O2 Delivery O2 Flow Rate FiO2 09/06/20 15:00 62 17 127/89 (102) 93 Vapotherm 25.00 90.00 09/06/20 14:51 25.00 90.00 09/06/20 14:29 95 Vapotherm 25.00 100 09/06/20 14:00 61 17 146/98 (114) 95 Vapotherm 25.00 100.00 09/06/20 13:17 72 09/06/20 13:00 83 12 152/93 (112) 95 Vapotherm 25.00 100.00 09/06/20 12:35 36.9 74 22 144/84 (104) 93 Vapotherm 25.00 100.00 09/06/20 08:24 90 Vapotherm 25.00 80 09/06/20 08:00 High Flow N/C 25.00 100 09/06/20 07:21 36.6 69 20 117/70 (86) 90 Vapotherm 25.00 80.00 09/06/20 03:47 36.5 69 18 129/77 (94) 93 Vapotherm 25.00 80.00 09/06/20 03:40 95 Vapotherm 25.00 09/05/20 23:59 36.8 73 18 117/71 (86) 92 Vapotherm 25.00 80.00 09/05/20 20:50 36.6 74 18 128/78 (95) 94 Vapotherm 25.00 80.00 09/05/20 20:38 91 Vapotherm 25.00 80 09/05/20 20:00 Vapotherm 25.00 80 09/05/20 17:00 36.2 78 20 123/81 (95) 93 Vapotherm 25.00 60.00 I & O 09/06/20 07:00 Intake Total 2265 ml Output Total 350 ml Balance 1915 ml General Appearance: WD/WN, Mild Distress (frustration, anxiety) Eyes: Bilateral Eye Normal Inspection, Bilateral Eye PERRL, Bilateral Eye EOMI HEENT: PERRL/EOMI Neck: Full Range of Motion, Normal Inspection, Non Tender, Supple Respiratory: Chest Non Tender, Lungs Clear, Normal Breath Sounds, No Accessory Muscle Use, No Respiratory Distress; No Crackles; Rhonci Cardiovascular: Regular Rate, Rhythm, No Murmur, Normal Peripheral Pulses Gastrointestinal: Normal Bowel Sounds, No Organomegaly, No Pulsatile Mass, Non Tender, Soft Rectal: Deferred Back: Normal Inspection, No CVA Tenderness, No Vertebral Tenderness Extremity: Normal Capillary Refill, Normal Range of Motion, Non Tender, No Calf Tenderness, No Pedal Edema, Other Neurologic/Psychiatric: Alert, Oriented x3, No Motor/Sensory Deficits, Normal 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, 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 Norm as Tested Skin: Normal Color, Warm/Dry Lymphatic: No Adenopathy Results Lab Laboratory Tests 09/06/20 09:03: Sodium Level 136, Potassium Level 3.8, Chloride Level 104, Carbon Dioxide Level 23, Anion Gap 9, Blood Urea Nitrogen 20H, Creatinine 0.82, Estimat Glomerular Filtration Rate > 60, BUN/Creatinine Ratio 24, Glucose Level 96, Calcium Level 8.5, Corrected Calcium 9.0, Total Bilirubin 1.1H, Aspartate Amino Transf (AST/SGOT) 180H, Alanine Aminotransferase (ALT/SGPT) 182H, Alkaline Phosphatase 67, Total Protein 6.4, Albumin 3.4 09/06/20 12:20: Blood Gas Puncture Site LT RAD, Blood Gas Patient Temperature 98.4, Arterial Blood pH 7.51H, Arterial Blood Partial Pressure CO2 29L, Arterial Blood Partial Pressure O2 79, Arterial Blood HCO3 23, Arterial Blood Total CO2 24.0, Arterial Blood Oxygen Saturation 95, Arterial Blood Base Excess 0.3, Anselmo Test YES-POS, Blood Gas Ventilator Setting NO, Blood Gas Inspired Oxygen 25 L 09/06/20 13:05: D-Dimer 1.18H Assessment/Plan Assessment/Plan Assessment and Plan 09/02/20- stopped IVF. monitoring LFTs, about the same. on 5L oxygen but not working hard to breath at all. Encouraged him to get up and walk around the room. will start azithromycin for 5 days to cover for pneumonia -continue covid protocol- dexamethasone. 09/03/20- stopping remdesivir as he is improving and started improving prior to starting it. LFTs higher today. Encourage Incentive spirometry. Updated sister, she is rightfully concerned. But he is not working hard to breath. We will do a trial of vapotherm and see how he does with it. 09/04/20- on vapotherm- switched to 10L NC- and holding oxygen saturation 93- 94%. WBC, Hgb, platelets normal. LFTs elevated more today. Will give him an additional dose of dexamethasone 10mg one time via IV. Ordered a chest xray. ABG from yesterday looks to be venous and not arterial. He is slowly improving. I would like to get him home 09/06/20 09/05/20- a little set back with panic attack today. Gave him 0.5mg lorazepam IV to help calm him down. Lungs were completely clear on auscultation. He was looking good this AM- ate all his breakfast and was feeling good until he took a shower then the panic attack hit him. Tried to go to 10L high flow- did not stay >90% so put back on vapotherm. 09/06/20- definitely a mental component- not use to being in the hospital, "COVID brain". Patient is not working hard to breath but is requiring Vapotherm to keep his oxygen sats above 90%. He has xanax 0.5mg BID prn that seems to help with his anxiety and panic attacks. Transferred to ICU due to increase in Vapotherm need but turns out to be more of panic attack rather than escalation in oxygen needs. [facility]. Consulted Pulm. Day 11 of symptoms. CXR improve compared to 2 days ago. dispo: continue inpatient- monitor as above. DVT ppx: lovenox. Problems: (1) COVID-19 (2) Acute respiratory failure with hypoxia (3) Elevated liver enzymes (4) Stress (5) Anxiety WILBUR MYLES MD Sep 06, 2020 16:13
[2020-09-06] MEDS: busPIRone 5 MG (BUSPAR) TAB PO SCH (18:42)
[2020-09-06] MEDS: MELATONIN 10 MG TABLET PO SCH (20:42)
[2020-09-06] MEDS: ENOXAPARIN 40 MG/0.4 ML (LOVENOX) SYR SC SCH (20:43)
[2020-09-07] VITALS (24 sets, daily range): BP systolic 103–176; BP diastolic 70–105
[2020-09-07] MEDS: RT-ALBUTEROL INHALER HFA (VENTOLIN HFA) 18 GM IH SCH ×4 (02:48→22:20)
[2020-09-07] MEDS: ALPRAZolam 0.5 MG (XANAX) TAB PO PRN (04:31)
[2020-09-07] MEDS: KCL 20 MEQ TAB (K-DUR) PO SCH (05:37)
[2020-09-07] MEDS: POTASSIUM CL 10MEQ/50ML IVPB 50 ML IV SCH (05:37)
[2020-09-07] MEDS: MAGNESIUM 1 GM/100 ML IVPB 100 ML IV SCH (05:37)
[2020-09-07 06:28] LABS: BASOPHILS % (AUTO) 0 % (0-10); EOSINOPHILS % (AUTO) 0 % (0-10); HEMATOCRIT 44 % (40-54); HEMOGLOBIN 14.7 g/dL (13.3-17.7); LYMPHOCYTES # (AUTO) 0.8 10^3/uL (1.0-4.0); LYMPHOCYTES % (AUTO) 10 % (12-44); MEAN CORPUSCULAR HEMOGLOBIN 31 pg (25-34); MEAN CORPUSCULAR HGB CONC 34 g/dL (32-36); MEAN CORPUSCULAR VOLUME 92 fL (80-99); MEAN PLATELET VOLUME 9.8 fL (9.0-12.2); MONOCYTES # (AUTO) 0.5 10^3/uL (0.0-1.0); MONOCYTES % (AUTO) 6 % (0-12); NEUTROPHILS # (AUTO) 6.9 10^3/uL (1.8-7.8); NEUTROPHILS % (AUTO) 84 % (42-75); PLATELET COUNT 214 10^3/uL (130-400); WHITE BLOOD COUNT 8.2 10^3/uL (4.3-11.0)
[2020-09-07 06:41] LABS: CHLORIDE 102 MMOL/L (98-107); POTASSIUM 3.8 MMOL/L (3.6-5.0); SODIUM 136 MMOL/L (135-145)
[2020-09-07 06:42] LABS: CALCIUM 8.3 MG/DL (8.5-10.1)
[2020-09-07 06:43] LABS: GLUCOSE 89 MG/DL (70-105)
[2020-09-07 06:44] LABS: CARBON DIOXIDE 24 MMOL/L (21-32)
[2020-09-07 06:46] LABS: GFR ESTIMATED > 60; PHOSPHORUS 3.2 MG/DL (2.3-4.7)
[2020-09-07 06:47] LABS: BUN/CREATININE RATIO 25
[2020-09-07 06:50] LABS: MAGNESIUM 2.4 MG/DL (1.6-2.4)
--- NOTE | 2020-09-07 08:33 | Progress Note - Hospitalist ---
Subjective HPI/CC On Admission Date Seen by Provider: Sep 07, 2020 Time Seen by Provider: 08:26 Subjective/Events-last exam Pt reports doing well today. No complaints. Coming down on his oxygen requirement. I titrated him down to 45% while I was at beside and his sats stayed 96%. Encouraged proning and OOB activity today too. No IS at bedside so informed him of plan to order and instructed him on frequency of use and indication. Objective Exam Vital Signs Vital Signs Date Time Temp Pulse Resp B/P (MAP) Pulse Ox O2 Delivery O2 Flow Rate FiO2 09/07/20 08:00 69 23 176/105 (128) 98 Vapotherm 15.00 50.00 09/07/20 07:40 37.6 09/07/20 07:08 60 Capillary Refill : Less Than 3 Seconds General Appearance: No Apparent Distress, WD/WN Respiratory: No Accessory Muscle Use; No Crackles; Decreased Breath Sounds, Other (on Vapotherm) Cardiovascular: Regular Rate, Rhythm, No Murmur Gastrointestinal: Normal Bowel Sounds, Soft Neurologic/Psychiatric: Alert, Oriented x3 Results/Procedures Lab Laboratory Tests 09/06/20 09:03 09/07/20 06:15 Patient resulted labs reviewed. Assessment/Plan Assessment and Plan Assess & Plan/Chief Complaint Acute hypoxic respiratory failure due to COVID19 Continue decadron Remdesivir DC-ed due to high oxygen requirement, received 2 doses Encouraged proning Continue vapotherm, wean as able IS ordered Did not receive convalescent plasma, outside of window Anxiety Has been having panic attacks Buspar added schduld Xanax prn Elevated BP BP up this morning, otherwise had been normal Will trend Transaminitis Trending down, will continue to watch DVT ppx: Lovenox Diagnosis/Problems Diagnosis/Problems (1) Acute respiratory failure with hypoxia (2) Elevated liver enzymes (3) COVID-19 Status: Acute (4) Anxiety APRIL ARAUJO MD Sep 07, 2020 08:33
[2020-09-07] MEDS ORDERED: dexAMETHasone 6 MG TAB (DECADRON) JT SCH (09:00)
[2020-09-07] MEDS: FAMOTIDINE 20 MG (PEPCID) TABLET PO SCH ×2 (09:12→21:00)
[2020-09-07] MEDS: busPIRone 5 MG (BUSPAR) TAB PO SCH (09:12)
--- NOTE | 2020-09-07 10:55 | Tele-ICU Progress Note ---
Subjective Date Seen by a Provider: Sep 07, 2020 Time Seen by a Provider: 09:30 Subjective/Events-last exam [employer] Rajani called me for this patient as he became hypoxic and anxious. Prior to that he is on Vapotherm 45%. I have visited him via video visit and visualized him. He is placed on 100% FiO2 and his oxygen saturation improved to 92%. He appears to be anxious. I have ordered lorazepam IV. We will get an x-ray. Reviewed with the RN. Sepsis Event Evaluation Height, Weight, BMI Height: 5'10.00" Weight: 195lbs. 8.0oz. [id number]; 30.38 BMI Method: Exam Exam Patient acknowledged, consented, and participated in this virtual visit which was conducted using real time audio/video Vital Signs Date Time Temp Pulse Resp B/P (MAP) Pulse Ox O2 Delivery O2 Flow Rate FiO2 09/07/20 10:00 88 30 143/101 (115) 96 Vapotherm 40.00 100.00 09/07/20 09:45 Vapotherm 40.00 100.00 09/07/20 09:00 86 20 104/87 (93) 98 Vapotherm 15.00 50.00 09/07/20 08:00 69 23 176/105 (128) 98 Vapotherm 15.00 50.00 09/07/20 07:40 37.6 09/07/20 07:13 Vapotherm 15.00 50.00 09/07/20 07:08 98 Vapotherm 20.00 60 09/07/20 07:00 82 21 123/77 (92) 98 Vapotherm 20.00 70.00 09/07/20 07:00 81 09/07/20 06:00 70 20 134/91 (105) 96 Vapotherm 20.00 70.00 09/07/20 05:00 70 18 117/74 (88) 100 Vapotherm 20.00 70.00 09/07/20 04:00 36.1 Vapotherm 20.00 70.00 09/07/20 04:00 98 Vapotherm 20.00 70 09/07/20 04:00 80 19 115/87 (96) 98 Vapotherm 20.00 70.00 09/07/20 03:00 69 17 112/72 (85) 99 Vapotherm 20.00 80.00 09/07/20 02:48 100 Vapotherm 20.00 80 09/07/20 02:00 77 20 126/84 (98) 98 Vapotherm 20.00 80.00 09/07/20 01:40 Vapotherm 20.00 80.00 09/07/20 01:00 60 09/07/20 01:00 59 18 122/92 (102) 100 Vapotherm 25.00 90.00 09/07/20 00:00 60 18 122/91 (101) 97 Vapotherm 25.00 90.00 09/06/20 23:00 61 16 118/86 (97) 94 Vapotherm 25.00 90.00 09/06/20 23:00 96 Vapotherm 25.00 90 09/06/20 22:40 36.2 Vapotherm 25.00 90.00 09/06/20 22:00 61 18 123/82 (96) 92 Vapotherm 25.00 90.00 09/06/20 21:29 90 Vapotherm 25.00 90 09/06/20 21:00 71 19 123/93 (103) 92 Vapotherm 25.00 90.00 09/06/20 20:00 61 17 132/84 (100) 90 Vapotherm 25.00 90.00 09/06/20 19:35 94 Vapotherm 25.00 90 09/06/20 19:00 36.3 71 15 124/82 (96) 94 Vapotherm 25.00 90.00 09/06/20 19:00 74 17 138/89 (105) 94 Vapotherm 25.00 90.00 09/06/20 19:00 75 09/06/20 18:00 80 16 125/87 (100) 93 Vapotherm 25.00 90.00 09/06/20 17:00 75 17 124/102 (109) 90 Vapotherm 25.00 90.00 09/06/20 16:57 146/102 (117) 09/06/20 16:17 37.0 09/06/20 16:00 92 26 148/101 (117) 91 Vapotherm 25.00 90.00 09/06/20 15:00 62 17 127/89 (102) 93 Vapotherm 25.00 90.00 09/06/20 14:51 25.00 90.00 09/06/20 14:29 95 Vapotherm 25.00 100 09/06/20 14:00 61 17 146/98 (114) 95 Vapotherm 25.00 100.00 09/06/20 13:17 72 09/06/20 13:00 83 12 152/93 (112) 95 Vapotherm 25.00 100.00 09/06/20 12:35 36.9 74 22 144/84 (104) 93 Vapotherm 25.00 100.00 I & O 09/07/20 07:00 Intake Total 740 ml Output Total 2025 ml Balance -1285 ml Height & Weight Height: 5'10.00" Weight: 195lbs. 8.0oz. 88.026086sa; 30.38 BMI Method: General Appearance: No Apparent Distress, WD/WN HEENT: PERRL/EOMI Neck: Full Range of Motion, Normal Inspection, Non Tender, Supple Respiratory: No Accessory Muscle Use; No Crackles; Decreased Breath Sounds, Other (on Vapotherm) Cardiovascular: Regular Rate, Rhythm, No Murmur Capillary Refill: Less Than 3 Seconds Gastrointestinal: normal bowel sounds, non tender, soft Extremity: Normal Capillary Refill, Normal Range of Motion, Non Tender, No Calf Tenderness, No Pedal Edema, Other Neurologic/Psychiatric: Alert, Oriented x3 Skin: Normal Color, Warm/Dry Lymphatic: No Adenopathy Results Lab Laboratory Tests 09/06/20 09:03 09/07/20 06:15 Assessment/Plan Assessment/Plan 1. Covid viral pneumonia 2. Acute hypoxic respiratory failure 3. Abnormal liver enzymes. 4. Anxiety disorder Recommendations 1. Continue Vapotherm with 100% FiO2 and call if he gets short of breath or further hypoxic and will consider placing him on a BiPAP. 2. We will give him IV Ativan 1 mg as needed every 4 hours for anxiety disorder 3. We will get a chest x-ray in a.m. 4. We will get liver profile in a.m. 5. We will start on remdesivir if no contraindication.1. Covid viral pneumonia 2. Acute hypoxic respiratory failure 3. Abnormal liver enzymes. 4. Anxiety disorder Recommendations 1. Continue Vapotherm with 100% FiO2 and call if he gets short of breath or further hypoxic and will consider placing him on a BiPAP. 2. We will give him IV Ativan 1 mg as needed every 4 hours for anxiety disorder 3. We will get a chest x-ray in a.m. 4. We will get liver profile in a.m. 5. We will start on remdesivir if no contraindication.1. Covid viral pneumonia 2. Acute hypoxic respiratory failure 3. Abnormal liver enzymes. 4. Anxiety disorder Recommendations 1. Continue Vapotherm with 100% FiO2 and call if he gets short of breath or further hypoxic and will consider placing him on a BiPAP. 2. We will give him IV Ativan 1 mg as needed every 4 hours for anxiety disorder 3. We will get a chest x-ray in a.m. 4. We will get liver profile in a.m. 5. We will start on remdesivir if no contraindication. Critical Care: Critically Ill Patient Time spent on discussion(mins): 35 Diagnosis/Problems Diagnosis/Problems (1) COVID-19 Status: Acute (2) Elevated liver enzymes (3) Acute respiratory failure with hypoxia RIK ESPAÑA MD Sep 07, 2020 10:55
[2020-09-07] MEDS ORDERED: REMDESIVIR INJ 200 MG in NS (IVPB) 210 ML IV ONE (11:00)
[2020-09-07] MEDS: LORazepam INJ 2 MG/ML (ATIVAN) VIAL IVP PRN (11:05)
[2020-09-07 11:11] LABS: ABG BASE EXCESS -0.9 MMOL/L (-2.5-2.5); ABG OXYGEN SATURATION 87 % (94-100); ABG PCO2 28 MMHG (35-45); ABG PH 7.51 (7.37-7.43); ABG PO2 57 MMHG (79-93); ABG TCO2 22.7 MMOL/L (21.0-31.0)
[2020-09-07 11:13] LABS: ALLENS TEST YES-POS; INSPIRED O2 20 L; PATIENT TEMP 98.7; VENTILATOR NO
--- NOTE | 2020-09-07 13:09 | Physical Therapy Daily Note ---
PT Daily Note-Current Subjective Attempted to see patient for PT initial evaluation. Nurse requested hold due to patients current medical status. Will attempt again next PT session. Transfers SCALE: Activities may be completed with or without assistive devices. 6-Yltnlzffjq-ussqttk completes the activity by him/herself with no assistance from a helper. 5-Set-up or Clean-up Assistance-helper sets up or cleans up; patient completes activity. [place] assists only prior to or following the activity. 4-Supervision or Touching Assistance-helper provides verbal cues and/or touching/steadying and/or contact guard assistance as patient completes activity. Assistance may be provided throughout the activity or intermittently. 3-Partial/Moderate Assistance-helper does LESS THAN HALF the effort. [place] lifts, holds or supports trunk or limbs, but provides less than half the effort. 2-Substantial/Maximal Assistance-helper does MORE THAN HALF the effort. [place] lifts or holds trunk or limbs and provides more than half the effort. 3-Kiqdhxcbt-wbhxmy does ALL the effort. Patient does none of the effort to complete the activity. Or, the assistance of 2 or more helpers is required for the patient to complete the activity. If activity was not attempted, code reason: 7-Patient Refused. 9-Not Applicable-not attempted and the patient did not perform the activity before the current illness, exacerbation or injury. 10-Not Attempted due to Environmental Limitations-(lack of equipment, weather restraints, etc.). 88-Not Attempted due to Medical Conditions or Safety Concerns. PT Plan Treatment/Plan Treatment Plan: Continue Plan of Care Treatment Duration: Oct 19, 2020 Frequency: Time/GCodes Time In: 1105 Time Out: 1106 Total Billed Treatment Time: 0 Total Billed Treatment No treatment at this time. ERIC BAILEY PT Sep 07, 2020 13:09
[2020-09-07 15:07] LABS: ABG BASE EXCESS -1.6 MMOL/L (-2.5-2.5); ABG OXYGEN SATURATION 93 % (94-100); ABG PCO2 31 MMHG (35-45); ABG PH 7.46 (7.37-7.43); ABG PO2 68 MMHG (79-93); ABG TCO2 22.5 MMOL/L (21.0-31.0); ALLENS TEST YES-POS; INSPIRED O2 60%; PATIENT TEMP 98.8; VENTILATOR NO
--- NOTE | 2020-09-07 15:33 | Tele-ICU Progress Note ---
Progress Note This evening RN called as patient pulled off oxygen and became hypoxic. Video visit made and discussed with the RN and advised to put on BiPAP 04/11. A stat portable chest x-ray done which I have reviewed and showed no significant difference. We will start on IV Precedex for anxiety and sedation and use lorazepam IV sparingly. Discussed with the RN. Stat ABGs are also done which are reviewed by me. Focused Exam Height, Weight, BMI Height: 5'10.00" Weight: 195lbs. 8.0oz. 88.508603ad; 30.38 BMI Method: RIK ESPAÑA MD Sep 07, 2020 15:33
--- NOTE | 2020-09-07 15:34 | Diagnostic Imaging Report ---
INDICATION: Pneumonia. TIME OF EXAM: 3:02 p.m. COMPARISON: Correlation is made with prior chest from one day earlier. FINDINGS: Heart size is stable. Bilateral pulmonary infiltrates persist in the mid and lower lung lanier. These are similar to perhaps slightly improved. No effusion or pneumothorax is seen. IMPRESSION: Slight improvement in bilateral infiltrates consistent with pneumonia when compared to examination of one day earlier. Dictated by: Dictated on workstation # [id number]
[2020-09-07] MEDS: DexMEDEtomidine 250 ML DRIP 250 ML IV SCH (15:53)
[2020-09-07] MEDS: ENOXAPARIN 40 MG/0.4 ML (LOVENOX) SYR SC SCH (20:02)
[2020-09-07] MEDS: MELATONIN 10 MG TABLET PO SCH (21:00)
[2020-09-08] VITALS (24 sets, daily range): BP systolic 91–148; BP diastolic 64–95
[2020-09-08 03:29] LABS: BASOPHILS % (AUTO) 0 % (0-10); EOSINOPHILS % (AUTO) 0 % (0-10); HEMATOCRIT 44 % (40-54); HEMOGLOBIN 14.8 g/dL (13.3-17.7); LYMPHOCYTES # (AUTO) 0.6 10^3/uL (1.0-4.0); LYMPHOCYTES % (AUTO) 8 % (12-44); MEAN CORPUSCULAR HEMOGLOBIN 31 pg (25-34); MEAN CORPUSCULAR HGB CONC 34 g/dL (32-36); MEAN CORPUSCULAR VOLUME 92 fL (80-99); MEAN PLATELET VOLUME 9.6 fL (9.0-12.2); MONOCYTES # (AUTO) 0.3 10^3/uL (0.0-1.0); MONOCYTES % (AUTO) 5 % (0-12); NEUTROPHILS # (AUTO) 6.1 10^3/uL (1.8-7.8); NEUTROPHILS % (AUTO) 87 % (42-75); PLATELET COUNT 205 10^3/uL (130-400); WHITE BLOOD COUNT 7.1 10^3/uL (4.3-11.0)
[2020-09-08 03:38] LABS: ALBUMIN 3.4 GM/DL (3.2-4.5); CHLORIDE 103 MMOL/L (98-107); POTASSIUM 4.2 MMOL/L (3.6-5.0); SODIUM 139 MMOL/L (135-145)
[2020-09-08 03:39] LABS: CALCIUM 8.6 MG/DL (8.5-10.1)
[2020-09-08 03:40] LABS: GLUCOSE 96 MG/DL (70-105); TOTAL PROTEIN 6.6 GM/DL (6.4-8.2)
[2020-09-08 03:41] LABS: CARBON DIOXIDE 23 MMOL/L (21-32)
[2020-09-08 03:42] LABS: BILIRUBIN,TOTAL 1.4 MG/DL (0.1-1.0)
[2020-09-08 03:43] LABS: PHOSPHORUS 3.6 MG/DL (2.3-4.7)
[2020-09-08 03:44] LABS: ALKALINE PHOSPHATASE 71 U/L (40-136); CREATININE SERUM 0.86 MG/DL (0.60-1.30); GFR ESTIMATED > 60
[2020-09-08 03:45] LABS: BUN/CREATININE RATIO 31
[2020-09-08 03:47] LABS: ALANINE AMINOTRANSFERASE 159 U/L (0-55); MAGNESIUM 2.7 MG/DL (1.6-2.4)
[2020-09-08 03:50] LABS: LYMPHOCYTES % (MANUAL) 11 %; MONOCYTES % (MANUAL) 2 %; NEUTROPHILS % (MANUAL) 87 %
[2020-09-08 03:51] LABS: RBC MORPH NORMAL
[2020-09-08] MEDS: RT-ALBUTEROL INHALER HFA (VENTOLIN HFA) 18 GM IH SCH ×4 (04:02→20:56)
[2020-09-08] MEDS: POTASSIUM CL 10MEQ/50ML IVPB 50 ML IV SCH (04:14)
[2020-09-08] MEDS: KCL 20 MEQ TAB (K-DUR) PO SCH (04:14)
[2020-09-08] MEDS: MAGNESIUM 1 GM/100 ML IVPB 100 ML IV SCH (04:14)
--- NOTE | 2020-09-08 08:28 | Diagnostic Imaging Report ---
INDICATION: Covid positive, respiratory failure, ICU management. TECHNIQUE: Single view chest 5:34 AM. CORRELATION STUDY: 09/07/2020 FINDINGS: Mediastinal structures appear generally stable. Bilateral pulmonary opacities are again demonstrated. Most pronounced in the peripheral aspect of the mid lung field as well as right lung base. Overall findings are stable to slightly improved. IMPRESSION: 1. Bilateral pulmonary infiltrates again demonstrated but perhaps slightly improved from prior. Dictated by: Dictated on workstation # [id number]
[2020-09-08] MEDS: busPIRone 5 MG (BUSPAR) TAB PO SCH (09:06)
[2020-09-08] MEDS: FAMOTIDINE 20 MG (PEPCID) TABLET PO SCH ×2 (09:06→21:48)
--- NOTE | 2020-09-08 10:21 | Progress Note - Hospitalist ---
Subjective HPI/CC On Admission Date Seen by Provider: Sep 08, 2020 Time Seen by Provider: 10:16 Subjective/Events-last exam Pt is reports doing ok today but does asks what's wrong with him. We discussed that he has COVID and it has impacted his lung ability to oxygenate his blood. He responds 'well that sucks." He had no further questions. He did escalate to BiPAP yesterday but is tolerating it well. I attempted to call his on phone number listed but no identifying information on voicemail answer so I did not leave any information as I could not confirm it was actually her. Objective Exam Vital Signs Vital Signs Date Time Temp Pulse Resp B/P (MAP) Pulse Ox O2 Delivery O2 Flow Rate FiO2 09/08/20 10:00 81 22 98/74 (82) 92 NIV Bilevel 60.00 09/08/20 07:46 36.0 09/08/20 04:00 40 Capillary Refill : Less Than 3 Seconds General Appearance: Other (Resting comfortably with BiPAP) Respiratory: No Respiratory Distress, Decreased Breath Sounds, Rhonci Cardiovascular: Regular Rate, Rhythm, No Murmur Gastrointestinal: Normal Bowel Sounds, Non Tender, Soft Extremity: No Calf Tenderness, No Pedal Edema Neurologic/Psychiatric: Alert, Oriented x3 Results/Procedures Lab Laboratory Tests 09/08/20 03:15 Patient resulted labs reviewed. Assessment/Plan Assessment and Plan Assess & Plan/Chief Complaint Acute hypoxic respiratory failure due to COVID19 Continue decadron Remdesivir DC-ed due to high oxygen requirement, received 2 doses Encouraged proning Continue BiPAP IS ordered Did not receive convalescent plasma, outside of window Anxiety Has been having panic attacks Buspar added scheduled Xanax prn Also on Precedex for BiPAP Elevated BP- resolved Transaminitis Trending down, will continue to watch DVT ppx: Lovenox Prognosis is guarded as he has slowly continued to worsen every day. I attempted to call with no answer as above. Critical Care Critically Ill Patient Diagnosis/Problems Diagnosis/Problems (1) Acute respiratory failure with hypoxia (2) Elevated liver enzymes (3) COVID-19 Status: Acute (4) Anxiety APRIL ARAUJO MD Sep 08, 2020 10:21
[2020-09-08] MEDS ORDERED: REMDESIVIR INJ 100 MG in NS (IVPB) 230 ML IV SCH (11:00)
[2020-09-08] MEDS: DexMEDEtomidine 250 ML DRIP 250 ML IV SCH (16:41)
[2020-09-08] MEDS: ENOXAPARIN 40 MG/0.4 ML (LOVENOX) SYR SC SCH (21:48)
[2020-09-08] MEDS: MELATONIN 10 MG TABLET PO SCH (21:48)
[2020-09-09] VITALS (26 sets, daily range): BP systolic 97–128; BP diastolic 66–89
[2020-09-09] MEDS: RT-ALBUTEROL INHALER HFA (VENTOLIN HFA) 18 GM IH SCH ×5 (02:51→21:38)
[2020-09-09 03:59] LABS: BASOPHILS % (AUTO) 0 % (0-10); EOSINOPHILS % (AUTO) 0 % (0-10); HEMATOCRIT 40 % (40-54); HEMOGLOBIN 13.5 g/dL (13.3-17.7); LYMPHOCYTES # (AUTO) 0.5 10^3/uL (1.0-4.0); LYMPHOCYTES % (AUTO) 10 % (12-44); MEAN CORPUSCULAR HEMOGLOBIN 31 pg (25-34); MEAN CORPUSCULAR HGB CONC 34 g/dL (32-36); MEAN CORPUSCULAR VOLUME 91 fL (80-99); MEAN PLATELET VOLUME 9.9 fL (9.0-12.2); MONOCYTES # (AUTO) 0.3 10^3/uL (0.0-1.0); MONOCYTES % (AUTO) 5 % (0-12); NEUTROPHILS # (AUTO) 4.6 10^3/uL (1.8-7.8); NEUTROPHILS % (AUTO) 85 % (42-75); PLATELET COUNT 225 10^3/uL (130-400); WHITE BLOOD COUNT 5.5 10^3/uL (4.3-11.0)
[2020-09-09 04:18] LABS: CHLORIDE 105 MMOL/L (98-107); POTASSIUM 4.1 MMOL/L (3.6-5.0); SODIUM 137 MMOL/L (135-145)
[2020-09-09 04:20] LABS: CALCIUM 8.3 MG/DL (8.5-10.1); GLUCOSE 98 MG/DL (70-105)
[2020-09-09 04:22] LABS: CARBON DIOXIDE 21 MMOL/L (21-32)
[2020-09-09 04:24] LABS: CREATININE SERUM 0.79 MG/DL (0.60-1.30); GFR ESTIMATED > 60; PHOSPHORUS 3.4 MG/DL (2.3-4.7)
[2020-09-09 04:25] LABS: BUN/CREATININE RATIO 32
[2020-09-09 04:26] LABS: MAGNESIUM 2.3 MG/DL (1.6-2.4)
[2020-09-09] MEDS: POTASSIUM CL 10MEQ/50ML IVPB 50 ML IV SCH (06:38)
[2020-09-09] MEDS: MAGNESIUM 1 GM/100 ML IVPB 100 ML IV SCH (06:38)
[2020-09-09] MEDS: KCL 20 MEQ TAB (K-DUR) PO SCH (06:39)
[2020-09-09] MEDS: FAMOTIDINE 20 MG (PEPCID) TABLET PO SCH ×2 (08:10→20:20)
[2020-09-09] MEDS: busPIRone 5 MG (BUSPAR) TAB PO SCH (08:10)
[2020-09-09] MEDS: LORazepam INJ 2 MG/ML (ATIVAN) VIAL IVP PRN (08:10)
--- NOTE | 2020-09-09 08:16 | Pulmonary Progress Note ---
Subjective Date Seen by a Provider: Sep 09, 2020 Time Seen by a Provider: 09:33 Subjective/Events-last exam admitted to MICU for increasing oxygen demands, on BIPAP, SpO2 has been in 90's, CXR shows bilateral infiltrates but stable, spont RR in teens On Decadron, was on Remdesivir, on once a day Lovenox, d dimer 1.13 On IV precedex 0.3 which is helping, on IV Ativan Sepsis Event Evaluation Height, Weight, BMI Height: 5'10.00" Weight: 195lbs. 8.0oz. 88.682190pp; 30.38 BMI Method: Exam Exam Patient acknowledged, consented, and participated in this virtual visit which was conducted using real time audio/video Vital Signs Date Time Temp Pulse Resp B/P (MAP) Pulse Ox O2 Delivery O2 Flow Rate FiO2 09/09/20 07:03 67 24 92 50.00 09/09/20 06:00 52 110/74 (86) 92 NIV Bilevel 50.00 09/09/20 05:00 46 101/68 (81) 94 NIV Bilevel 50.00 09/09/20 04:00 93 NIV Bilevel 50 09/09/20 04:00 52 115/75 (87) 94 NIV Bilevel 50.00 09/09/20 03:00 48 115/76 (89) 93 NIV Bilevel 50.00 09/09/20 02:51 63 16 94 50.00 09/09/20 02:00 47 106/77 (86) 93 NIV Bilevel 50.00 09/09/20 01:00 58 09/09/20 01:00 58 103/71 (80) 94 NIV Bilevel 50.00 09/09/20 00:00 50 108/72 (82) 94 NIV Bilevel 50.00 09/09/20 00:00 92 NIV Bilevel 50 09/08/20 23:00 51 112/70 (80) 94 NIV Bilevel 50.00 09/08/20 22:00 55 107/80 (88) 94 NIV Bilevel 50.00 09/08/20 21:00 67 123/86 (91) 92 NIV Bilevel 50.00 09/08/20 20:55 61 19 94 50.00 09/08/20 20:00 59 12 101/75 (83) NIV Bilevel 50.00 09/08/20 20:00 92 NIV Bilevel 50 09/08/20 19:00 65 116/94 (96) 93 NIV Bilevel 50.00 09/08/20 19:00 65 09/08/20 18:00 59 14 116/74 (88) 96 NIV Bilevel 50.00 09/08/20 17:00 55 14 116/85 (95) 93 NIV Bilevel 50.00 09/08/20 16:41 66 110/72 09/08/20 16:30 37.1 09/08/20 16:00 77 16 110/72 (85) 92 NIV Bilevel 50.00 09/08/20 16:00 91 NIV Bilevel 50 09/08/20 15:00 70 12 96/69 (77) 93 NIV Bilevel 50.00 09/08/20 14:11 65 31 94 50.00 09/08/20 14:00 74 27 107/71 (82) 92 NIV Bilevel 50.00 09/08/20 13:00 77 14 97/67 (77) 94 NIV Bilevel 55.00 09/08/20 12:38 77 09/08/20 12:00 74 13 92/64 (73) 94 NIV Bilevel 55.00 09/08/20 12:00 91 NIV Bilevel 55 09/08/20 11:00 65 16 91/65 (74) 93 NIV Bilevel 55.00 09/08/20 10:00 81 22 98/74 (82) 92 NIV Bilevel 55.00 09/08/20 09:00 74 22 133/89 (104) 90 NIV Bilevel 60.00 09/08/20 08:34 75 18 89 60.00 I & O 09/09/20 07:00 Intake Total 440 ml Output Total 1160 ml Balance -720 ml Height & Weight Height: 5'10.00" Weight: 195lbs. 8.0oz. 88.395993wr; 30.38 BMI Method: General Appearance: Anxious, Other (Resting comfortably with BiPAP) HEENT: PERRL/EOMI Neck: Full Range of Motion, Normal Inspection, Non Tender, Supple Respiratory: No Respiratory Distress, Decreased Breath Sounds, Rhonci Cardiovascular: Regular Rate, Rhythm, No Murmur, Bradycardia Capillary Refill: Less Than 3 Seconds Gastrointestinal: normal bowel sounds, non tender, soft Extremity: No Calf Tenderness, No Pedal Edema Neurologic/Psychiatric: Alert, Oriented x3 Skin: Normal Color, Warm/Dry Lymphatic: No Adenopathy Results Lab Laboratory Tests 09/08/20 03:15 09/09/20 03:49 Assessment/Plan Assessment/Plan COVID PNA, will continue above Rx, may be able to transition off BiPAP, continue Lovenox, Decadron will continue precedex and ativan PRN LFT's are elevated, need to be monitored Time spent with patient (mins): 15 MARISA POLLOCK MD Sep 09, 2020 08:16
[2020-09-09 09:57] LABS: ALBUMIN 3.1 GM/DL (3.2-4.5)
[2020-09-09 09:59] LABS: TOTAL PROTEIN 6.1 GM/DL (6.4-8.2)
[2020-09-09 10:01] LABS: BILIRUBIN,TOTAL 1.1 MG/DL (0.1-1.0)
[2020-09-09 10:05] LABS: BILIRUBIN,DIRECT 0.5 MG/DL (0.0-0.3); BILIRUBIN,INDIRECT 0.6 MG/DL
--- NOTE | 2020-09-09 13:22 | Progress Note ---
Subjective Subjective Date Seen by Provider: Sep 09, 2020 Time Seen by Provider: 07:30 Patient has not given up. He is thankful for the care we have provided. He does want to get better and go home. He is not hungry. But does feel thirsty due to dry mouth. Denies difficulty breathing. Review of Systems General: No Chills, No Night Sweats HEENT: No Head Aches Pulmonary: No Dyspnea; Cough Cardiovascular: No: Chest Pain, Palpitations Gastrointestinal: Other (taste and smell decreased but improving); No: Nausea, Vomiting Genitourinary: No Dysuria Musculoskeletal: No: neck pain Neurological: No: Weakness, Confusion All Other Systems Reviewed All Other Systems Reviewed: Yes Objective Exam Vital Signs Vital Signs Date Time Temp Pulse Resp B/P (MAP) Pulse Ox O2 Delivery O2 Flow Rate FiO2 09/10/20 00:00 95 Vapotherm 30.00 90 09/10/20 00:00 70 114/78 (90) NIV Bilevel 50.00 09/09/20 23:00 67 14 122/81 (91) 94 NIV Bilevel 50.00 09/09/20 22:00 63 15 104/72 (82) NIV Bilevel 50.00 09/09/20 21:38 92 Vapotherm 30.00 90 09/09/20 21:06 70 17 102/69 (83) 91 NIV Bilevel 50.00 09/09/20 20:00 94 Vapotherm 30.00 90 09/09/20 20:00 53 15 123/79 (97) 92 NIV Bilevel 50.00 09/09/20 20:00 37.0 09/09/20 19:00 60 15 115/81 (92) 92 NIV Bilevel 50.00 09/09/20 19:00 60 09/09/20 18:36 92 Vapotherm 30.00 90 09/09/20 18:00 60 15 124/89 (101) 93 NIV Bilevel 50.00 09/09/20 17:00 64 11 120/88 (99) 96 NIV Bilevel 50.00 09/09/20 16:00 128 97/71 (80) 91 NIV Bilevel 50.00 09/09/20 16:00 96 Vapotherm 30.00 90 09/09/20 15:51 36.2 09/09/20 15:00 69 107/75 (86) 93 NIV Bilevel 50.00 09/09/20 14:18 36.4 51 92 90 09/09/20 14:00 72 128/66 (86) 92 NIV Bilevel 50.00 09/09/20 13:46 92 Vapotherm 30.00 90 09/09/20 13:00 51 117/75 (89) 95 NIV Bilevel 50.00 09/09/20 12:44 52 09/09/20 12:00 50 118/80 (93) 94 NIV Bilevel 50.00 09/09/20 12:00 96 Vapotherm 30.00 100 09/09/20 11:00 59 97/73 (81) 93 NIV Bilevel 50.00 09/09/20 10:00 51 104/76 (85) 97 NIV Bilevel 50.00 09/09/20 10:00 96 Vapotherm 30.00 100 09/09/20 09:00 51 107/74 (85) 97 NIV Bilevel 50.00 09/09/20 08:00 36.4 09/09/20 08:00 64 110/81 (91) 91 NIV Bilevel 50.00 09/09/20 08:00 96 Vapotherm 30.00 100 I & O 09/10/20 06:59 Intake Total 550 ml Output Total 1930 ml Balance -1380 ml General Appearance: Anxious, Other (Resting comfortably with BiPAP) Eyes: Bilateral Eye Normal Inspection, Bilateral Eye PERRL, Bilateral Eye EOMI HEENT: PERRL/EOMI Neck: Full Range of Motion, Normal Inspection, Non Tender, Supple Respiratory: No Respiratory Distress, Decreased Breath Sounds, Rhonci Cardiovascular: Regular Rate, Rhythm, No Murmur, Bradycardia Gastrointestinal: Normal Bowel Sounds, Non Tender, Soft Rectal: Deferred Back: Normal Inspection, No CVA Tenderness, No Vertebral Tenderness Extremity: No Calf Tenderness, No Pedal Edema Neurologic/Psychiatric: Alert, Oriented x3 Skin: Normal Color, Warm/Dry Lymphatic: No Adenopathy Results Lab Laboratory Tests 09/09/20 03:49: White Blood Count 5.5, Red Blood Count 4.38, Hemoglobin 13.5, Hematocrit 40, Mean Corpuscular Volume 91, Mean Corpuscular Hemoglobin 31, Mean Corpuscular Hemoglobin Concent 34, Red Cell Distribution Width 12.6, Platelet Count 225, Mean Platelet Volume 9.9, Immature Granulocyte % (Auto) 1, Neutrophils (%) (Auto) 85H, Lymphocytes (%) (Auto) 10L, Monocytes (%) (Auto) 5, Eosinophils (%) (Auto) 0, Basophils (%) (Auto) 0, Neutrophils # (Auto) 4.6, Lymphocytes # (Auto) 0.5L, Monocytes # (Auto) 0.3, Eosinophils # (Auto) 0.0, Basophils # (Auto) 0.0, Immature Granulocyte # (Auto) 0.0, Sodium Level 137, Potassium Level 4.1, Chloride Level 105, Carbon Dioxide Level 21, Anion Gap 11, Blood Urea Nitrogen 25H, Creatinine 0.79, Estimat Glomerular Filtration Rate > 60, BUN/Creatinine Ratio 32, Glucose Level 98, Calcium Level 8.3L, Phosphorus Level 3.4, Magnesium Level 2.3, Total Bilirubin 1.1H, Direct Bilirubin 0.5H, Indirect Bilirubin 0.6, Aspartate Amino Transf (AST/SGOT) 128H, Alanine Aminotransferase (ALT/SGPT) 258H , Alkaline Phosphatase 99, Total Protein 6.1L, Albumin 3.1L 09/09/20 08:00: SARS-CoV-2 RNA (RT-PCR) DetectedH Microbiology 09/06/20 MRSA Screen - Final, Complete MRSA not isolated Assessment/Plan Assessment/Plan Assessment and Plan 09/02/20- stopped IVF. monitoring LFTs, about the same. on 5L oxygen but not working hard to breath at all. Encouraged him to get up and walk around the room. will start azithromycin for 5 days to cover for pneumonia -continue covid protocol- dexamethasone. 09/03/20- stopping remdesivir as he is improving and started improving prior to starting it. LFTs higher today. Encourage Incentive spirometry. Updated sister, she is rightfully concerned. But he is not working hard to breath. We will do a trial of vapotherm and see how he does with it. 09/04/20- on vapotherm- switched to 10L NC- and holding oxygen saturation 93-94%. WBC, Hgb, platelets normal. LFTs elevated more today. Will give him an additional dose of dexamethasone 10mg one time via IV. Ordered a chest xray. ABG from yesterday looks to be venous and not arterial. He is slowly improving. I would like to get him home 09/06/20 09/05/20- a little set back with panic attack today. Gave him 0.5mg lorazepam IV to help calm him down. Lungs were completely clear on auscultation. He was looking good this AM- ate all his breakfast and was feeling good until he took a shower then the panic attack hit him. Tried to go to 10L high flow- did not stay >90% so put back on vapotherm. 09/06/20- definitely a mental component- not use to being in the hospital, "COVID brain". Patient is not working hard to breath but is requiring Vapotherm to keep his oxygen sats above 90%. He has xanax 0.5mg BID prn that seems to help with his anxiety and panic attacks. Transferred to ICU due to increase in Vapotherm need but turns out to be more of panic attack rather than escalation in oxygen needs. Likely to transfer back to [facility] in the next day. Consulted Pulm. Day 11 of symptoms. CXR improve compared to 2 days ago. 09/09/20- on BiPAP will try to get him down to Vapotherm today. He is not hungry. He has not been drinking much fluid since getting the bipap. Will add on D5LR @125ml/hr until he starts taking po. He has started to improve. He agrees with not giving up. LFTs up again. Continue dexamethasone, lovenox. Still positive for COVID. Would like to find out what variant. dispo: continue inpatient- monitor as above. DVT ppx: lovenox. Problems: (1) COVID-19 (2) Elevated liver enzymes (3) Acute respiratory failure with hypoxia (4) Anxiety Assessment & Plan: on buspar, xanax prn (5) Stress WILBUR MYLES MD Sep 09, 2020 13:22
--- NOTE | 2020-09-09 14:31 | Physical Therapy Evaluation ---
PT Evaluation-General Medical Diagnosis Admission Date Sep 01, 2020 at 13:44 Medical Diagnosis: Covid (+)/hypoxia Onset Date: Sep 01, 2020 Therapy Diagnosis Therapy Diagnosis: generalized weakness/debility/decreased pulmonary function Height/Weight Height (Feet): 5 Height (Inches): 10.00 Weight (Pounds): 195 Weight (Ounces): 8.0 Precautions Precautions/Isolations: Airborne Isolation, Contact Isolation, Droplet Isolation, Fall Prevention, Standard Precautions Referral Physician: Yuridia Reason for Referral: Evaluation/Treatment Medical History Current History ER secondary to decreased SAO2 Reviewed History: Yes Social History Home: Single Level Current Living Status: Spouse Prior Prior Level of Function SCALE: Activities may be completed with or without assistive devices. 7-Pewhtwroih-tbipvgj completes the activity by him/herself with no assistance from a helper. 5-Set-up or Clean-up Assistance-helper sets up or cleans up; patient completes activity. [place] assists only prior to or following the activity. 4-Supervision or Touching Assistance-helper provides verbal cues and/or touching/steadying and/or contact guard assistance as patient completes activity. Assistance may be provided throughout the activity or intermittently. 3-Partial/Moderate Assistance-helper does LESS THAN HALF the effort. [place] lifts, holds or supports trunk or limbs, but provides less than half the effort. 2-Substantial/Maximal Assistance-helper does MORE THAN HALF the effort. [place] lifts or holds trunk or limbs and provides more than half the effort. 4-Teoblhsaa-gngfvj does ALL the effort. Patient does none of the effort to complete the activity. Or, the assistance of 2 or more helpers is required for the patient to complete the activity. If activity was not attempted, code reason: 7-Patient Refused. 9-Not Applicable-not attempted and the patient did not perform the activity before the current illness, exacerbation or injury. 10-Not Attempted due to Environmental Limitations-(lack of equipment, weather restraints, etc.). 88-Not Attempted due to Medical Conditions or Safety Concerns. Bed Mobility: 6 Transfers (B,C,W/C): 6 Gait: 6 Stairs: 6 Indoor Mobility (Ambulation): Independent Stairs: Independent Prior Devices Use: None PT Evaluation-Current Subjective Patient agrees to PT. Currently on Vapotherm 90%. Objective Patient Orientation: Person, Time, Situation Attachments: Oxygen (vapotherm), Floyd Catheter, IV ROM/Strength ROM Lower Extremities bilateral LE WFL Strength Lower Extremities 3/5 grossly bilateral LE Integumentary/Posture Bladder Incontinence: Floyd Cath Posture WFL Neuromuscular (Tone, Coordination, Reflexes) grossly intact Sensory Vision: Functional Hearing: Impaired Transfers Sit to Lying (QC): 6 Lying to Sitting/Side of Bed(Q: 6 Sit to Stand (QC): 7 Chair/Asz-kh-Rnmxv Xfer(QC): 7 Gait Does the Patient Walk?: No and Walking Goal IS indicated Balance Sitting Static: Normal Sitting Dynamic: Normal Treatment Patient tolerated breathing exercises to improve pulmonary function. Patient fatigues very quickly and impulsively returns to sidelying right in bed. Assessment/Needs 64 y.o. male, will benefit from skilled PT to address pulmonary function with functional mobility and strengthening. Patient is severely limited with pulmonary function and endurance. Rehab Potential: Guarded PT Short Term Goals Short Term Goals Time Frame: Sep 21, 2020 Roll Left & Right: 6 Sit to lyin Lying to sitting on side of be: 6 Sit to stand: 4 Chair/rsw-fi-fshtd transfer: 4 Toilet transfer: 4 Walk 10 feet: 4 PT Medical Office Scheduler Goals Medical Office Scheduler Goals PT Medical Office Scheduler Goals Time Frame: Oct 05, 2020 Roll Left & Right (QC): 6 Sit to Lying (QC): 6 Lying-Sitting on Side/Bed(QC): 6 Sit to Stand (QC): 6 Chair/Wbg-jl-Gzgdm Xfer(QC): 6 Toilet Transfer (QC): 6 Walk 10 feet (QC): 6 Walk 50ft with 2 Turns (QC): 6 Walk 150 ft (QC): 6 PT Plan Problem List Problem List: Activity Tolerance, Functional Strength, Safety, Balance, Gait, Transfer Treatment/Plan Treatment Plan: Continue Plan of Care Treatment Plan: Education, Functional Activity Saud, Functional Strength, Gait, Safety, Therapeutic Exercise, Transfers Treatment Duration: Oct 19, 2020 Frequency: 6 times per week Estimated Hrs Per Day: .25 hour per day Patient and/or Family Agrees t: Yes Time/GCodes Time In: 1350 Time Out: 1406 Total Billed Treatment Time: 16 Total Billed Treatment 1 visit EVMod 16 min ESPERANZA OTERO PT Sep 09, 2020 14:31
[2020-09-09] MEDS: D5 LR IV SOLUTION 1,000 ML IV SCH ×2 (15:20→20:20)
[2020-09-09] MEDS: MELATONIN 10 MG TABLET PO SCH (20:20)
[2020-09-09] MEDS: ENOXAPARIN 40 MG/0.4 ML (LOVENOX) SYR SC SCH (20:21)
[2020-09-09] MEDS: ALPRAZolam 0.5 MG (XANAX) TAB PO PRN (20:22)
[2020-09-10] VITALS (22 sets, daily range): BP systolic 90–141; BP diastolic 45–94
[2020-09-10] MEDS: RT-ALBUTEROL INHALER HFA (VENTOLIN HFA) 18 GM IH SCH ×6 (02:27→22:00)
[2020-09-10 04:02] LABS: BASOPHILS % (AUTO) 0 % (0-10); EOSINOPHILS % (AUTO) 0 % (0-10); HEMATOCRIT 45 % (40-54); HEMOGLOBIN 15.4 g/dL (13.3-17.7); LYMPHOCYTES # (AUTO) 0.6 10^3/uL (1.0-4.0); LYMPHOCYTES % (AUTO) 7 % (12-44); MEAN CORPUSCULAR HEMOGLOBIN 31 pg (25-34); MEAN CORPUSCULAR HGB CONC 34 g/dL (32-36); MEAN CORPUSCULAR VOLUME 90 fL (80-99); MONOCYTES # (AUTO) 0.4 10^3/uL (0.0-1.0); MONOCYTES % (AUTO) 4 % (0-12); NEUTROPHILS # (AUTO) 7.3 10^3/uL (1.8-7.8); NEUTROPHILS % (AUTO) 88 % (42-75); PLATELET COUNT 265 10^3/uL (130-400); WHITE BLOOD COUNT 8.3 10^3/uL (4.3-11.0)
[2020-09-10 05:15] LABS: BUN/CREATININE RATIO 26; CARBON DIOXIDE 24 MMOL/L (21-32); CHLORIDE 103 MMOL/L (98-107); CREATININE SERUM 0.73 MG/DL (0.60-1.30); GFR ESTIMATED > 60; GLUCOSE 101 MG/DL (70-105); MAGNESIUM 2.1 MG/DL (1.6-2.4); PHOSPHORUS 2.5 MG/DL (2.3-4.7); SODIUM 136 MMOL/L (135-145)
[2020-09-10] MEDS: D5 LR IV SOLUTION 1,000 ML IV SCH ×3 (05:30→21:41)
[2020-09-10] MEDS: KCL 20 MEQ TAB (K-DUR) PO SCH (05:31)
[2020-09-10] MEDS: MAGNESIUM 1 GM/100 ML IVPB 100 ML IV SCH (05:31)
[2020-09-10] MEDS: POTASSIUM CL 10MEQ/50ML IVPB 50 ML IV SCH (05:31)
--- NOTE | 2020-09-10 07:20 | Progress Note ---
Subjective Subjective Date Seen by Provider: Sep 10, 2020 Time Seen by Provider: 07:00 Patient was found by RT with his vapotherm off his face and o2 sat off. He didn't mean to pull it off. It was replaced by RT. Patient would like to know what is going on. He is still frustrated and would like to improve and go home. -Spoke with on Wednesday09/08/20- she reports Merlin quit smoking around 2002 and he does not drink etoh nor do any rec drugs. She also said his current anxious mood is not his normal. Review of Systems General: No Chills, No Night Sweats HEENT: No Head Aches Pulmonary: No Dyspnea; Cough (occassional) Cardiovascular: No: Chest Pain, Palpitations Gastrointestinal: Other (taste and smell decreased but improving); No: Nausea, Vomiting Genitourinary: No Dysuria Musculoskeletal: No: neck pain Neurological: Weakness; No: Confusion All Other Systems Reviewed All Other Systems Reviewed: Yes Objective Exam Vital Signs Vital Signs Date Time Temp Pulse Resp B/P (MAP) Pulse Ox O2 Delivery O2 Flow Rate FiO2 09/10/20 07:01 87 Vapotherm 30.00 95 09/10/20 06:00 65 21 120/72 (88) NIV Bilevel 95.00 09/10/20 05:00 73 16 121/77 (92) 92 NIV Bilevel 95.00 09/10/20 04:07 75 15 90 NIV Bilevel 95.00 09/10/20 04:03 87 20 114/71 (85) 81 NIV Bilevel 50.00 09/10/20 04:00 95 Vapotherm 30.00 95 09/10/20 03:00 68 14 119/80 (93) 91 NIV Bilevel 50.00 09/10/20 02:27 92 Vapotherm 30.00 90 09/10/20 02:00 78 31 115/70 (85) 91 NIV Bilevel 50.00 09/10/20 01:00 61 09/10/20 01:00 61 15 114/78 (83) 95 NIV Bilevel 50.00 09/10/20 00:00 95 Vapotherm 30.00 90 09/10/20 00:00 70 114/78 (90) NIV Bilevel 50.00 09/09/20 23:00 67 14 122/81 (91) 94 NIV Bilevel 50.00 09/09/20 22:00 63 15 104/72 (82) NIV Bilevel 50.00 09/09/20 21:38 92 Vapotherm 30.00 90 09/09/20 21:06 70 17 102/69 (83) 91 NIV Bilevel 50.00 09/09/20 20:00 94 Vapotherm 30.00 90 09/09/20 20:00 53 15 123/79 (97) 92 NIV Bilevel 50.00 09/09/20 20:00 37.0 09/09/20 19:00 60 15 115/81 (92) 92 NIV Bilevel 50.00 09/09/20 19:00 60 09/09/20 18:36 92 Vapotherm 30.00 90 09/09/20 18:00 60 15 124/89 (101) 93 NIV Bilevel 50.00 09/09/20 17:00 64 11 120/88 (99) 96 NIV Bilevel 50.00 09/09/20 16:00 128 97/71 (80) 91 NIV Bilevel 50.00 09/09/20 16:00 96 Vapotherm 30.00 90 09/09/20 15:51 36.2 09/09/20 15:00 69 107/75 (86) 93 NIV Bilevel 50.00 09/09/20 14:18 36.4 51 92 90 09/09/20 14:00 72 128/66 (86) 92 NIV Bilevel 50.00 09/09/20 13:46 92 Vapotherm 30.00 90 09/09/20 13:00 51 117/75 (89) 95 NIV Bilevel 50.00 09/09/20 12:44 52 09/09/20 12:00 50 118/80 (93) 94 NIV Bilevel 50.00 09/09/20 12:00 96 Vapotherm 30.00 100 09/09/20 11:00 59 97/73 (81) 93 NIV Bilevel 50.00 09/09/20 10:00 51 104/76 (85) 97 NIV Bilevel 50.00 09/09/20 10:00 96 Vapotherm 30.00 100 09/09/20 09:00 51 107/74 (85) 97 NIV Bilevel 50.00 09/09/20 08:00 36.4 09/09/20 08:00 64 110/81 (91) 91 NIV Bilevel 50.00 09/09/20 08:00 96 Vapotherm 30.00 100 I & O 09/10/20 06:59 Intake Total 550 ml Output Total 1930 ml Balance -1380 ml General Appearance: Anxious, Other Eyes: Bilateral Eye Normal Inspection, Bilateral Eye PERRL, Bilateral Eye EOMI HEENT: PERRL/EOMI Neck: Full Range of Motion, Normal Inspection, Non Tender, Supple Respiratory: No Respiratory Distress, Decreased Breath Sounds (bases) Cardiovascular: Regular Rate, Rhythm, No Murmur, Bradycardia Gastrointestinal: Normal Bowel Sounds, Non Tender, Soft Rectal: Deferred Back: Normal Inspection, No CVA Tenderness, No Vertebral Tenderness Extremity: No Calf Tenderness, No Pedal Edema Neurologic/Psychiatric: Alert, Oriented x3 Skin: Normal Color, Warm/Dry Lymphatic: No Adenopathy Results Lab Laboratory Tests 09/09/20 08:00: SARS-CoV-2 RNA (RT-PCR) DetectedH 09/10/20 03:50: White Blood Count 8.3, Red Blood Count 5.00, Hemoglobin 15.4, Hematocrit 45, Mean Corpuscular Volume 90, Mean Corpuscular Hemoglobin 31, Mean Corpuscular Hemoglobin Concent 34, Red Cell Distribution Width 12.4, Platelet Count 265, Mean Platelet Volume 10.0, Immature Granulocyte % (Auto) 1, Neutrophils (%) (Auto) 88H, Lymphocytes (%) (Auto) 7L, Monocytes (%) (Auto) 4, Eosinophils (%) (Auto) 0, Basophils (%) (Auto) 0, Neutrophils # (Auto) 7.3, Lymphocytes # (Auto) 0.6L, Monocytes # (Auto) 0.4, Eosinophils # (Auto) 0.0, Basophils # (Auto) 0.0, Immature Granulocyte # (Auto) 0.1, Sodium Level 136, Potassium Level 4.0, Chloride Level 103, Carbon Dioxide Level 24, Anion Gap 9, Blood Urea Nitrogen 19H, Creatinine 0.73, Estimat Glomerular Filtration Rate > 60, BUN/Creatinine Ratio 26, Glucose Level 101, Calcium Level 9.0, Phosphorus Level 2.5, Magnesium Level 2.1 Microbiology 09/06/20 MRSA Screen - Final, Complete MRSA not isolated Assessment/Plan Assessment/Plan Assessment and Plan 09/02/20- stopped IVF. monitoring LFTs, about the same. on 5L oxygen but not working hard to breath at all. Encouraged him to get up and walk around the room. will start azithromycin for 5 days to cover for pneumonia -continue covid protocol- dexamethasone. 09/03/20- stopping remdesivir as he is improving and started improving prior to starting it. LFTs higher today. Encourage Incentive spirometry. Updated sister, she is rightfully concerned. But he is not working hard to breath. We will do a trial of vapotherm and see how he does with it. 09/04/20- on vapotherm- switched to 10L NC- and holding oxygen saturation 93- 94%. WBC, Hgb, platelets normal. LFTs elevated more today. Will give him an additional dose of dexamethasone 10mg one time via IV. Ordered a chest xray. ABG from yesterday looks to be venous and not arterial. He is slowly improving. I would like to get him home 09/06/20 09/05/20- a little set back with panic attack today. Gave him 0.5mg lorazepam IV to help calm him down. Lungs were completely clear on auscultation. He was looking good this AM- ate all his breakfast and was feeling good until he took a shower then the panic attack hit him. Tried to go to 10L high flow- did not stay >90% so put back on vapotherm. 09/06/20- definitely a mental component- not use to being in the hospital, "COVID brain". Patient is not working hard to breath but is requiring Vapotherm to keep his oxygen sats above 90%. He has xanax 0.5mg BID prn that seems to help with his anxiety and panic attacks. Transferred to ICU due to increase in Vapotherm need but turns out to be more of panic attack rather than escalation in oxygen needs. Likely to transfer back to [facility] in the next day. Consulted Pulm. Day 11 of symptoms. CXR improve compared to 2 days ago. 09/09/20- on BiPAP will try to get him down to Vapotherm today. He is not hungry. He has not been drinking much fluid since getting the bipap. Will add on D5LR @125ml/hr until he starts taking po. He has started to improve. He agrees with not giving up. LFTs up again. Continue dexamethasone, lovenox. Still positive for COVID. Would like to find out what variant. 09/10/20- on vapotherm. Continue lovenox, dexamethasone. Checking LFTs tomorrow. Slowly improving. Prognosis guarding but a little better. dispo: continue inpatient- monitor as above. DVT ppx: lovenox. Problems: (1) COVID-19 (2) Elevated liver enzymes (3) Acute respiratory failure with hypoxia (4) Anxiety Assessment & Plan: on buspar, xanax prn (5) Stress WILBUR MYLES MD Sep 10, 2020 07:20
[2020-09-10] MEDS: FAMOTIDINE 20 MG (PEPCID) TABLET PO SCH ×2 (08:13→21:42)
[2020-09-10] MEDS: busPIRone 5 MG (BUSPAR) TAB PO SCH (08:13)
--- NOTE | 2020-09-10 09:34 | Pulmonary Progress Note ---
Subjective Date Seen by a Provider: Sep 10, 2020 Time Seen by a Provider: 09:33 Sepsis Event Evaluation Height, Weight, BMI Height: 5'10.00" Weight: 195lbs. 8.0oz. [id number]; 30.38 BMI Method: Exam Exam Patient acknowledged, consented, and participated in this virtual visit which was conducted using real time audio/video Vital Signs Date Time Temp Pulse Resp B/P (MAP) Pulse Ox O2 Delivery O2 Flow Rate FiO2 09/10/20 08:00 80 13 117/81 (93) 92 NIV Bilevel 95.00 09/10/20 08:00 95 Vapotherm 40.00 100 09/10/20 08:00 37.4 09/10/20 07:01 87 Vapotherm 30.00 95 09/10/20 07:00 87 17 137/79 (98) 85 NIV Bilevel 95.00 09/10/20 06:55 70 09/10/20 06:00 65 21 120/72 (88) NIV Bilevel 95.00 09/10/20 05:00 73 16 121/77 (92) 92 NIV Bilevel 95.00 09/10/20 04:07 75 15 90 NIV Bilevel 95.00 09/10/20 04:03 87 20 114/71 (85) 81 NIV Bilevel 50.00 09/10/20 04:00 95 Vapotherm 30.00 95 09/10/20 03:00 68 14 119/80 (93) 91 NIV Bilevel 50.00 09/10/20 02:27 92 Vapotherm 30.00 90 09/10/20 02:00 78 31 115/70 (85) 91 NIV Bilevel 50.00 09/10/20 01:00 61 09/10/20 01:00 61 15 114/78 (83) 95 NIV Bilevel 50.00 09/10/20 00:00 95 Vapotherm 30.00 90 09/10/20 00:00 70 114/78 (90) NIV Bilevel 50.00 09/09/20 23:00 67 14 122/81 (91) 94 NIV Bilevel 50.00 09/09/20 22:00 63 15 104/72 (82) NIV Bilevel 50.00 09/09/20 21:38 92 Vapotherm 30.00 90 09/09/20 21:06 70 17 102/69 (83) 91 NIV Bilevel 50.00 09/09/20 20:00 94 Vapotherm 30.00 90 09/09/20 20:00 53 15 123/79 (97) 92 NIV Bilevel 50.00 09/09/20 20:00 37.0 09/09/20 19:00 60 15 115/81 (92) 92 NIV Bilevel 50.00 09/09/20 19:00 60 09/09/20 18:36 92 Vapotherm 30.00 90 09/09/20 18:00 60 15 124/89 (101) 93 NIV Bilevel 50.00 09/09/20 17:00 64 11 120/88 (99) 96 NIV Bilevel 50.00 09/09/20 16:00 128 97/71 (80) 91 NIV Bilevel 50.00 09/09/20 16:00 96 Vapotherm 30.00 90 09/09/20 15:51 36.2 09/09/20 15:00 69 107/75 (86) 93 NIV Bilevel 50.00 09/09/20 14:18 36.4 51 92 90 09/09/20 14:00 72 128/66 (86) 92 NIV Bilevel 50.00 09/09/20 13:46 92 Vapotherm 30.00 90 09/09/20 13:00 51 117/75 (89) 95 NIV Bilevel 50.00 09/09/20 12:44 52 09/09/20 12:00 50 118/80 (93) 94 NIV Bilevel 50.00 09/09/20 12:00 96 Vapotherm 30.00 100 09/09/20 11:00 59 97/73 (81) 93 NIV Bilevel 50.00 09/09/20 10:00 51 104/76 (85) 97 NIV Bilevel 50.00 09/09/20 10:00 96 Vapotherm 30.00 100 I & O 09/10/20 06:59 Intake Total 550 ml Output Total 1930 ml Balance -1380 ml Height & Weight Height: 5'10.00" Weight: 195lbs. 8.0oz. [id number]; 30.38 BMI Method: General Appearance: Anxious, Other (Resting comfortably with BiPAP) HEENT: PERRL/EOMI Neck: Full Range of Motion, Normal Inspection, Non Tender, Supple Respiratory: No Respiratory Distress, Decreased Breath Sounds, Rhonci Cardiovascular: Regular Rate, Rhythm, No Murmur, Bradycardia Capillary Refill: Less Than 3 Seconds Gastrointestinal: normal bowel sounds, non tender, soft Extremity: No Calf Tenderness, No Pedal Edema Neurologic/Psychiatric: Alert, Oriented x3 Skin: Normal Color, Warm/Dry Lymphatic: No Adenopathy Results Lab Laboratory Tests 09/09/20 03:49 09/10/20 03:50 Assessment/Plan Assessment/Plan (Tele-ICU Physician , Progress Note ) Available chart/ vitals / labs / Images reviewed Video assessment done using teleICU camera, rest of exam as per RN Discussed with RN Events overnight : bipap night ? most night vapother Afebrile hemodynamically stable, no pressors, I/O = neg 1500 Drips: precedex 0.2 As per RN exam : cracles lines, no LOLA Consultants: Hospital course: 09/01 - admit with aoutpt dx of covid (09/06) transfered to ICU for increased O2 demands with aggitation//bipap-precede x. CXR 09/08 shows bilateral infiltrates but stable Cx blood cx sputum A/P Acute hypoxemic resp failure in the context of COVID 19 PNA -o2 vapotherm 30L 95% COVID PNA -dexamethasone IV -PE ro . by CT , ddimer low LFT's are elevated - to monitored Lines : Floyd: - desats with OG: Nutrition: po Analgesia: na Anxiety/ delirium - precedex and ativan PRN VTE Prophylaxis: mason 40 q24 Stress Ulcer Prophylaxis: Glycemic Control: + Plans in collaboration with bedside consultants and IM MDs. Discussed with RN to reach out if any questions or concerns A total of 27 minutes of critical care time was devoted to this patient today, required to treat and/or prevent further deterioration of critical care condition ( as above ) . KHANG LEWIS MD Sep 10, 2020 09:34
[2020-09-10] MEDS: DexMEDEtomidine 250 ML DRIP 250 ML IV SCH (12:16)
--- NOTE | 2020-09-10 14:46 | Physical Therapy Daily Note ---
PT Daily Note-Current Subjective Patient agrees to PT. Mental Status Patient Orientation: Normal For Age Attachments: Oxygen (vapotherm 100%), Floyd Catheter, IV Transfers SCALE: Activities may be completed with or without assistive devices. 7-Yznpjdycgk-tyyrcyt completes the activity by him/herself with no assistance from a helper. 5-Set-up or Clean-up Assistance-helper sets up or cleans up; patient completes activity. [place] assists only prior to or following the activity. 4-Supervision or Touching Assistance-helper provides verbal cues and/or touching/steadying and/or contact guard assistance as patient completes activity. Assistance may be provided throughout the activity or intermittently. 3-Partial/Moderate Assistance-helper does LESS THAN HALF the effort. [place] lifts, holds or supports trunk or limbs, but provides less than half the effort. 2-Substantial/Maximal Assistance-helper does MORE THAN HALF the effort. [place] lifts or holds trunk or limbs and provides more than half the effort. 9-Gytaswypn-bxwnmz does ALL the effort. Patient does none of the effort to complete the activity. Or, the assistance of 2 or more helpers is required for the patient to complete the activity. If activity was not attempted, code reason: 7-Patient Refused. 9-Not Applicable-not attempted and the patient did not perform the activity before the current illness, exacerbation or injury. 10-Not Attempted due to Environmental Limitations-(lack of equipment, weather restraints, etc.). 88-Not Attempted due to Medical Conditions or Safety Concerns. Sit to Lying (QC): 6 Lying to Sitting/Side of Bed(Q: 6 Sit to Stand (QC): 4 (SBA) Patient able to perform sit to stand x 3 sets to address pulmonary with standing weight shifting activity Gait Training Does the Patient Walk?: Yes Distance: 5' Gait Assistive Device: None Exercises Seated Therapy Exercises: Ankle pumps, Long arc quads Seated Reps: 12 Standing: Weight shifts Standing Reps: 12 Treatments seated breathing exercises to expand lungs to improve pulmonary function. Patient's SAO2 decreases to 85% during standing exercises with fairly quick recovery. Assessment SAO2 decreases with activity. Fatigues with minimal activity. PT Short Term Goals Short Term Goals Time Frame: Sep 21, 2020 Roll Left & Right: 6 Sit to lyin Lying to sitting on side of be: 6 Sit to stand: 4 Chair/sqz-fl-pppph transfer: 4 Toilet transfer: 4 Walk 10 feet: 4 PT Mcfp Goals Mcfp Goals PT Mcfp Goals Time Frame: Oct 05, 2020 Roll Left & Right (QC): 6 Sit to Lying (QC): 6 Lying-Sitting on Side/Bed(QC): 6 Sit to Stand (QC): 6 Chair/Smh-tg-Thoxi Xfer(QC): 6 Toilet Transfer (QC): 6 Walk 10 feet (QC): 6 Walk 50ft with 2 Turns (QC): 6 Walk 150 ft (QC): 6 PT Plan Treatment/Plan Treatment Plan: Continue Plan of Care Treatment Plan: Education, Functional Activity Saud, Functional Strength, Gait, Safety, Therapeutic Exercise, Transfers Treatment Duration: Oct 19, 2020 Frequency: 6 times per week Estimated Hrs Per Day: .25 hour per day Patient and/or Family Agrees t: Yes Time/GCodes Time In: 1250 Time Out: 1304 Total Billed Treatment Time: 14 Total Billed Treatment 1 visit EX 14 min ESPERANZA OTERO PT Sep 10, 2020 14:46
[2020-09-10] MEDS: MELATONIN 10 MG TABLET PO SCH (21:42)
[2020-09-10] MEDS: ENOXAPARIN 40 MG/0.4 ML (LOVENOX) SYR SC SCH (21:42)
[2020-09-11] VITALS (24 sets, daily range): BP systolic 84–138; BP diastolic 66–91
[2020-09-11] MEDS: RT-ALBUTEROL INHALER HFA (VENTOLIN HFA) 18 GM IH SCH ×6 (02:15→22:35)
[2020-09-11 04:06] LABS: BASOPHILS % (AUTO) 0 % (0-10); EOSINOPHILS % (AUTO) 0 % (0-10); HEMATOCRIT 41 % (40-54); HEMOGLOBIN 13.7 g/dL (13.3-17.7); LYMPHOCYTES # (AUTO) 0.5 10^3/uL (1.0-4.0); LYMPHOCYTES % (AUTO) 6 % (12-44); MEAN CORPUSCULAR HEMOGLOBIN 31 pg (25-34); MEAN CORPUSCULAR HGB CONC 33 g/dL (32-36); MEAN CORPUSCULAR VOLUME 92 fL (80-99); MEAN PLATELET VOLUME 9.4 fL (9.0-12.2); MONOCYTES # (AUTO) 0.4 10^3/uL (0.0-1.0); MONOCYTES % (AUTO) 6 % (0-12); NEUTROPHILS # (AUTO) 6.8 10^3/uL (1.8-7.8); NEUTROPHILS % (AUTO) 88 % (42-75); PLATELET COUNT 217 10^3/uL (130-400); WHITE BLOOD COUNT 7.8 10^3/uL (4.3-11.0)
[2020-09-11 04:25] LABS: ALANINE AMINOTRANSFERASE 176 U/L (0-55); ALBUMIN 2.8 GM/DL (3.2-4.5); ALKALINE PHOSPHATASE 94 U/L (40-136); BILIRUBIN,DIRECT 0.4 MG/DL (0.0-0.3); BILIRUBIN,INDIRECT 0.4 MG/DL; BILIRUBIN,TOTAL 0.8 MG/DL (0.1-1.0); BUN/CREATININE RATIO 21; CALCIUM 8.6 MG/DL (8.5-10.1); CARBON DIOXIDE 22 MMOL/L (21-32); CHLORIDE 105 MMOL/L (98-107); CREATININE SERUM 0.66 MG/DL (0.60-1.30); GFR ESTIMATED > 60; GLUCOSE 121 MG/DL (70-105); MAGNESIUM 2.1 MG/DL (1.6-2.4); PHOSPHORUS 3.2 MG/DL (2.3-4.7); SODIUM 136 MMOL/L (135-145); TOTAL PROTEIN 5.9 GM/DL (6.4-8.2)
--- NOTE | 2020-09-11 05:50 | Diagnostic Imaging Report ---
EXAMINATION: Portable erect AP chest at 4:32 AM INDICATION: Respiratory distress, Covid The heart size is within normal limits and stable when compared to 09/08/2020. However, in the interval since the prior study vague areas of increased density have developed along the periphery of the right upper lobe and the left upper lobe. These findings do suggest pneumonia/atelectasis. The other areas of atelectasis/infiltrate involving the lung seen previously are again evident and no different. The mediastinum is not widened. The osseous structures are intact. IMPRESSION: The appearance of the chest has worsened since the prior study as there is greater involvement of both lungs by pneumonia/atelectasis. A follow-up study would be recommended for continued evaluation. Dictated by: Dictated on workstation # [id number]
[2020-09-11] MEDS: KCL 20 MEQ TAB (K-DUR) PO SCH (06:31)
[2020-09-11] MEDS: POTASSIUM CL 10MEQ/50ML IVPB 50 ML IV SCH (06:31)
[2020-09-11] MEDS: MAGNESIUM 1 GM/100 ML IVPB 100 ML IV SCH (06:31)
[2020-09-11] MEDS: D5 LR IV SOLUTION 1,000 ML IV SCH ×2 (06:32→08:21)
--- NOTE | 2020-09-11 07:57 | Tele-ICU Progress Note ---
Subjective Date Seen by a Provider: Sep 11, 2020 Time Seen by a Provider: 09:17 Subjective/Events-last exam On vapotherm 25for hypoxia from COVID PNA,still on Decadron, Off remdesivir, LFT are slowly dropping CXR read as worse with bilateral opacities FiO2 70% Oxygenation needs have decreased Better strength Sepsis Event Evaluation Height, Weight, BMI Height: 5'10.00" Weight: 195lbs. 8.0oz. [id number]; 30.38 BMI Method: Exam Exam Patient acknowledged, consented, and participated in this virtual visit which was conducted using real time audio/video Vital Signs Date Time Temp Pulse Resp B/P (MAP) Pulse Ox O2 Delivery O2 Flow Rate FiO2 09/11/20 06:54 90 Vapotherm 25.00 70 09/11/20 06:00 63 24 105/69 (78) 92 Vapotherm 25.00 70.00 09/11/20 05:00 50 16 113/69 (86) 94 Vapotherm 25.00 70.00 09/11/20 04:00 57 19 101/67 (82) 89 Vapotherm 25.00 70.00 09/11/20 04:00 94 Vapotherm 25.00 70 09/11/20 03:00 46 14 115/77 (90) 94 Vapotherm 25.00 70.00 09/11/20 02:15 92 Vapotherm 25.00 70 09/11/20 02:00 48 14 128/89 (102) 92 Vapotherm 25.00 70.00 09/11/20 01:00 43 12 133/86 (102) 96 Vapotherm 25.00 70.00 09/11/20 01:00 43 09/11/20 00:28 43 14 93 Vapotherm 25.00 70.00 09/11/20 00:00 97 Vapotherm 25.00 80 09/11/20 00:00 11 13 130/91 (104) 96 Vapotherm 25.00 75.00 09/10/20 23:00 45 14 122/82 (95) 95 Vapotherm 25.00 75.00 09/10/20 22:10 98 Vapotherm 25.00 70 09/10/20 22:00 54 14 104/71 (82) 93 Vapotherm 25.00 75.00 09/10/20 21:30 43 13 96 Vapotherm 25.00 75.00 09/10/20 21:00 36.7 50 14 127/85 (99) 95 Vapotherm 25.00 80.00 09/10/20 20:00 97 Vapotherm 25.00 80 09/10/20 20:00 48 13 117/80 (92) 96 Vapotherm 25.00 80.00 09/10/20 19:05 53 16 94 Vapotherm 25.00 80.00 09/10/20 19:00 56 16 119/75 (90) 92 Vapotherm 30.00 80.00 09/10/20 19:00 61 09/10/20 18:54 96 Vapotherm 30.00 80 09/10/20 17:56 Vapotherm 30.00 80.00 09/10/20 16:00 62 15 116/76 (89) 98 Vapotherm 40.00 100.00 09/10/20 16:00 95 Vapotherm 40.00 100 09/10/20 15:10 91 Vapotherm 40.00 100 09/10/20 15:09 93 Vapotherm 40.00 100 09/10/20 15:00 59 12 112/67 (82) Vapotherm 40.00 100.00 09/10/20 14:00 56 15 130/94 (106) Vapotherm 40.00 100.00 09/10/20 13:00 62 18 125/84 (98) 94 Vapotherm 40.00 100.00 09/10/20 12:33 65 09/10/20 12:16 79 09/10/20 12:00 79 23 90/45 (60) 95 Vapotherm 40.00 100.00 09/10/20 12:00 95 Vapotherm 40.00 100 09/10/20 11:00 73 18 133/82 (99) 96 Vapotherm 40.00 100.00 09/10/20 10:00 65 16 141/79 (99) Vapotherm 40.00 100.00 09/10/20 09:00 79 19 111/74 (86) 93 Vapotherm 40.00 100.00 09/10/20 08:00 80 13 117/81 (93) 92 Vapotherm 40.00 100.00 09/10/20 08:00 95 Vapotherm 40.00 100 6/22/21 08:00 37.4 I & O 09/11/20 07:00 Intake Total 935 ml Output Total 2275 ml Balance -1340 ml Height & Weight Height: 5'10.00" Weight: 195lbs. 8.0oz. [id number]; 30.38 BMI Method: General Appearance: No Apparent Distress, Anxious, Mild Distress, Moderate Distress, Other HEENT: PERRL/EOMI Neck: Full Range of Motion, Normal Inspection, Non Tender, Supple Respiratory: No Respiratory Distress, Decreased Breath Sounds (bases), Rhonci Cardiovascular: Regular Rate, Rhythm, No Murmur, Bradycardia Capillary Refill: Less Than 3 Seconds Gastrointestinal: normal bowel sounds, non tender, soft Extremity: No Calf Tenderness, No Pedal Edema, Pedal Edema Neurologic/Psychiatric: Alert, Oriented x3 Skin: Normal Color, Warm/Dry Lymphatic: No Adenopathy Results Lab Laboratory Tests 09/10/20 03:50 09/11/20 03:55 Assessment/Plan Assessment/Plan Acute Resp Failure from COVID 19 PNA, will continue on Decadron, vapotherm, monitor LFT's and CXR Critical Care: Critically Ill Patient Time spent with patient (mins): 15 MARISA POLLOCK MD Sep 11, 2020 07:57
[2020-09-11] MEDS: busPIRone 5 MG (BUSPAR) TAB PO SCH (08:25)
[2020-09-11] MEDS: DexMEDEtomidine 250 ML DRIP 250 ML IV SCH (08:26)
[2020-09-11] MEDS: FAMOTIDINE 20 MG (PEPCID) TABLET PO SCH ×2 (08:26→20:15)
--- NOTE | 2020-09-11 09:36 | Progress Note ---
Subjective Subjective Date Seen by Provider: Sep 11, 2020 Time Seen by Provider: 13:22 Patient was on the ipad talking with his . He was eating lunch. He reports he is doing much better. Actually feels like he is improving. Nursing reports ICU psychosis. Review of Systems General: No Chills, No Night Sweats HEENT: No Head Aches Pulmonary: No Dyspnea; Cough (occassional) Cardiovascular: No: Chest Pain, Palpitations Gastrointestinal: Other (taste and smell decreased but improving); No: Nausea, Vomiting Genitourinary: No Dysuria Musculoskeletal: No: neck pain Neurological: Weakness; No: Confusion All Other Systems Reviewed All Other Systems Reviewed: Yes Objective Exam Vital Signs Vital Signs Date Time Temp Pulse Resp B/P (MAP) Pulse Ox O2 Delivery O2 Flow Rate FiO2 09/11/20 12:00 52 19 118/67 (84) 94 Vapotherm 25.00 70.00 09/11/20 11:23 90 Vapotherm 25.00 70 09/11/20 11:00 68 18 103/67 (79) 92 Vapotherm 25.00 70.00 09/11/20 10:00 53 17 109/68 (82) 96 Vapotherm 25.00 70.00 09/11/20 09:00 53 15 102/67 (79) 95 Vapotherm 25.00 70.00 09/11/20 08:26 68 09/11/20 08:17 36.7 09/11/20 08:00 94 Vapotherm 25.00 70 09/11/20 08:00 52 16 103/66 (78) 93 Vapotherm 25.00 70.00 09/11/20 07:00 60 19 84/70 (75) 91 Vapotherm 25.00 70.00 09/11/20 06:54 90 Vapotherm 25.00 70 09/11/20 06:33 58 09/11/20 06:00 63 24 105/69 (78) 92 Vapotherm 25.00 70.00 09/11/20 05:00 50 16 113/69 (86) 94 Vapotherm 25.00 70.00 09/11/20 04:00 57 19 101/67 (82) 89 Vapotherm 25.00 70.00 09/11/20 04:00 94 Vapotherm 25.00 70 09/11/20 03:00 46 14 115/77 (90) 94 Vapotherm 25.00 70.00 09/11/20 02:15 92 Vapotherm 25.00 70 09/11/20 02:00 48 14 128/89 (102) 92 Vapotherm 25.00 70.00 09/11/20 01:00 43 12 133/86 (102) 96 Vapotherm 25.00 70.00 09/11/20 01:00 43 09/11/20 00:28 43 14 93 Vapotherm 25.00 70.00 09/11/20 00:00 97 Vapotherm 25.00 80 09/11/20 00:00 11 13 130/91 (104) 96 Vapotherm 25.00 75.00 09/10/20 23:00 45 14 122/82 (95) 95 Vapotherm 25.00 75.00 09/10/20 22:10 98 Vapotherm 25.00 70 09/10/20 22:00 54 14 104/71 (82) 93 Vapotherm 25.00 75.00 09/10/20 21:30 43 13 96 Vapotherm 25.00 75.00 09/10/20 21:00 36.7 50 14 127/85 (99) 95 Vapotherm 25.00 80.00 09/10/20 20:00 97 Vapotherm 25.00 80 09/10/20 20:00 48 13 117/80 (92) 96 Vapotherm 25.00 80.00 09/10/20 19:05 53 16 94 Vapotherm 25.00 80.00 09/10/20 19:00 56 16 119/75 (90) 92 Vapotherm 30.00 80.00 09/10/20 19:00 61 09/10/20 18:54 96 Vapotherm 30.00 80 09/10/20 17:56 Vapotherm 30.00 80.00 09/10/20 16:00 62 15 116/76 (89) 98 Vapotherm 40.00 100.00 09/10/20 16:00 95 Vapotherm 40.00 100 09/10/20 15:10 91 Vapotherm 40.00 100 09/10/20 15:09 93 Vapotherm 40.00 100 09/10/20 15:00 59 12 112/67 (82) Vapotherm 40.00 100.00 I & O 09/11/20 07:00 Intake Total 935 ml Output Total 2275 ml Balance -1340 ml General Appearance: No Apparent Distress, Anxious; No Mild Distress, No Moderate Distress; Other Eyes: Bilateral Eye Normal Inspection, Bilateral Eye PERRL, Bilateral Eye EOMI HEENT: PERRL/EOMI Neck: Full Range of Motion, Normal Inspection, Non Tender, Supple Respiratory: No Respiratory Distress, Decreased Breath Sounds (bases), Rhonci Cardiovascular: Regular Rate, Rhythm, No Murmur, Bradycardia Gastrointestinal: Normal Bowel Sounds, Non Tender, Soft Rectal: Deferred Back: Normal Inspection, No CVA Tenderness, No Vertebral Tenderness Extremity: No Calf Tenderness, No Pedal Edema, Pedal Edema Neurologic/Psychiatric: Alert, Oriented x3 Skin: Normal Color, Warm/Dry Lymphatic: No Adenopathy Results Lab Laboratory Tests 09/11/20 03:55: White Blood Count 7.8, Red Blood Count 4.48, Hemoglobin 13.7, Hematocrit 41, Mean Corpuscular Volume 92, Mean Corpuscular Hemoglobin 31, Mean Corpuscular Hemoglobin Concent 33, Red Cell Distribution Width 12.6, Platelet Count 217, Monika n Platelet Volume 9.4, Immature Granulocyte % (Auto) 1, Neutrophils (%) (Auto) 88H, Lymphocytes (%) (Auto) 6L, Monocytes (%) (Auto) 6, Eosinophils (%) (Auto) 0, Basophils (%) (Auto) 0, Neutrophils # (Auto) 6.8, Lymphocytes # (Auto) 0.5L, Monocytes # (Auto) 0.4, Eosinophils # (Auto) 0.0, Basophils # (Auto) 0.0, Immature Granulocyte # (Auto) 0.1, Sodium Level 136, Potassium Level 4.0, Chloride Level 105, Carbon Dioxide Level 22, Anion Gap 9, Blood Urea Nitrogen 14, Creatinine 0.66, Estimat Glomerular Filtration Rate > 60, BUN/Creatinine Ratio 21, Glucose Level 121H, Calcium Level 8.6, Phosphorus Level 3.2, Magnesium Level 2.1, Total Bilirubin 0.8, Direct Bilirubin 0.4H, Indirect Bilirubin 0.4, Aspartate Amino Transf (AST/SGOT) 49H, Alanine Aminotransferase (ALT/SGPT) 176H, Alkaline Phosphatase 94, Total Protein 5.9L, Albumin 2.8L Microbiology 6/18/21 MRSA Screen - Final, Complete MRSA not isolated Assessment/Plan Assessment/Plan Assessment and Plan 09/02/20- stopped IVF. monitoring LFTs, about the same. on 5L oxygen but not working hard to breath at all. Encouraged him to get up and walk around the room. will start azithromycin for 5 days to cover for pneumonia -continue covid protocol- dexamethasone. 09/03/20- stopping remdesivir as he is improving and started improving prior to starting it. LFTs higher today. Encourage Incentive spirometry. Updated sist er, she is rightfully concerned. But he is not working hard to breath. We will do a trial of vapotherm and see how he does with it. 09/04/20- on vapotherm- switched to 10L NC- and holding oxygen saturation 93- 94%. WBC, Hgb, platelets normal. LFTs elevated more today. Will give him an additional dose of dexamethasone 10mg one time via IV. Ordered a chest xray. ABG from yesterday looks to be venous and not arterial. He is slowly improving. I would like to get him home 09/06/20 09/05/20- a little set back with panic attack today. Gave him 0.5mg lorazepam IV to help calm him down. Lungs were completely clear on auscultation. He was looking good this AM- ate all his breakfast and was feeling good until he took a shower then the panic attack hit him. Tried to go to 10L high flow- did not stay >90% so put back on vapotherm. 09/06/20- definitely a mental component- not use to being in the hospital, "COVID brain". Patient is not working hard to breath but is requiring Vapotherm to keep his oxygen sats above 90%. He has xanax 0.5mg BID prn that seems to help with his anxiety and panic attacks. Transferred to ICU due to increase in Vapotherm need but turns out to be more of panic attack rather than escalation in oxygen needs. Likely to transfer back to [facility] in the next day. Consulted Pulm. Day 11 of symptoms. CXR improve compared to 2 days ago. 09/09/20- on BiPAP will try to get him down to Vapotherm today. He is not hungry. He has not been drinking much fluid since getting the bipap. Will add on D5LR @125ml/hr until he starts taking po. He has started to improve. He agrees with not giving up. LFTs up again. Continue dexamethasone, lovenox. Still positive for COVID. Would like to find out what variant. 09/10/20- on vapotherm. Continue lovenox, dexamethasone. Checking LFTs tomorrow. Slowly improving. Prognosis guarding but a little better. 09/11/20- decreased IVF to 75ml/hr since he is eating/drinking better. Added on rocephin 1g daily to broaden coverage as his CXR isnt better. Improvement on his oxygen requirement though. And patient reports he is doing better, feeling better. dispo: continue inpatient- monitor as above. DVT ppx: lovenox. Problems: (1) COVID-19 (2) Elevated liver enzymes (3) Acute respiratory failure with hypoxia (4) Anxiety Assessment & Plan: on buspar, xanax prn (5) Stress WILBUR MYLES MD Sep 11, 2020 09:36
[2020-09-11] MEDS: cefTRIAXone 1,000 MG in WATER (STERILE) FOR INJECTION 10 ML IV SCH (11:12)
--- NOTE | 2020-09-11 14:10 | Physical Therapy Daily Note ---
PT Daily Note-Current Subjective Patient in bed pre tx, agrees to PT, has no complaints of pain at rest. Proper PPE donned before entering room. Appearance Patient in bed post tx with nurse call, phone, tray, all needs met. Mental Status Patient Orientation: Person, Situation, [place] Attachments: Oxygen, Floyd Catheter, IV vapotherm Transfers SCALE: Activities may be completed with or without assistive devices. 3-Zesgfhpttq-nzajcmm completes the activity by him/herself with no assistance from a helper. 5-Set-up or Clean-up Assistance-helper sets up or cleans up; patient completes activity. [place] assists only prior to or following the activity. 4-Supervision or Touching Assistance-helper provides verbal cues and/or touching/steadying and/or contact guard assistance as patient completes activity. Assistance may be provided throughout the activity or intermittently. 3-Partial/Moderate Assistance-helper does LESS THAN HALF the effort. [place] lifts, holds or supports trunk or limbs, but provides less than half the effort. 2-Substantial/Maximal Assistance-helper does MORE THAN HALF the effort. [place] lifts or holds trunk or limbs and provides more than half the effort. 6-Xgnanpemz-kxrjat does ALL the effort. Patient does none of the effort to complete the activity. Or, the assistance of 2 or more helpers is required for the patient to complete the activity. If activity was not attempted, code reason: 7-Patient Refused. 9-Not Applicable-not attempted and the patient did not perform the activity before the current illness, exacerbation or injury. 10-Not Attempted due to Environmental Limitations-(lack of equipment, weather restraints, etc.). 88-Not Attempted due to Medical Conditions or Safety Concerns. Roll Left & Right (QC): 6 Sit to Lying (QC): 6 Lying to Sitting/Side of Bed(Q: 6 Sit to Stand (QC): 4 Gait Training Distance: 30' Walk 10 feet (QC): 4 Gait Persons Needed: 1 Gait Assistive Device: None Patient ambulated a few feet forward and back several times for a total of about 30', patient was limited by how far he would walk due to his vapotherm. Patient was slightly unsteady but did not have a LOB. His O2 stayed above 90% the whole time. Exercises Supine Ex: Ankle pumps, Quad Set, Heel Slides Supine Reps: 15 Treatments bed mobility and transfers, ambulation, LE strengthening Assessment Current Status: Fair Progress maintained O2 levels well PT Short Term Goals Short Term Goals Time Frame: Sep 21, 2020 Roll Left & Right: 6 Sit to lyin Lying to sitting on side of be: 6 Sit to stand: 4 Chair/lao-zy-uhjxy transfer: 4 Toilet transfer: 4 Walk 10 feet: 4 PT Electronic Musical Instrument Repairer Goals Half-Way Goals PT Half-Way Goals Time Frame: Oct 05, 2020 Roll Left & Right (QC): 6 Sit to Lying (QC): 6 Lying-Sitting on Side/Bed(QC): 6 Sit to Stand (QC): 6 Chair/Nnj-kb-Eafcj Xfer(QC): 6 Toilet Transfer (QC): 6 Walk 10 feet (QC): 6 Walk 50ft with 2 Turns (QC): 6 Walk 150 ft (QC): 6 PT Plan Problem List Problem List: Activity Tolerance, Functional Strength, Safety, Balance, Gait, Transfer, ROM Treatment/Plan Treatment Plan: Continue Plan of Care Treatment Plan: Education, Functional Activity Saud, Functional Strength, Gait, Safety, Therapeutic Exercise, Transfers Treatment Duration: Oct 19, 2020 Frequency: 6 times per week Estimated Hrs Per Day: .25 hour per day Patient and/or Family Agrees t: Yes Safety Risks/Education Patient Education: Gait Training, Transfer Techniques, Correct Positioning, Safety Issues Teaching Recipient: Patient Teaching Methods: Demonstration, Discussion Response to Teaching: Reinforcement Needed Time/GCodes Time In: 1336 Time Out: 1356 Total Billed Treatment Time: 20 Total Billed Treatment 1 visit FA STEFANIE ARREOLA PT Sep 11, 2020 14:10
[2020-09-11] MEDS: ENOXAPARIN 40 MG/0.4 ML (LOVENOX) SYR SC SCH (20:15)
[2020-09-11] MEDS: MELATONIN 10 MG TABLET PO SCH (20:15)
[2020-09-11] MEDS: ALPRAZolam 0.5 MG (XANAX) TAB PO PRN (21:31)
[2020-09-12] VITALS (25 sets, daily range): BP systolic 103–146; BP diastolic 57–108
[2020-09-12] MEDS: RT-ALBUTEROL INHALER HFA (VENTOLIN HFA) 18 GM IH SCH ×6 (02:17→22:06)
[2020-09-12 03:44] LABS: BASOPHILS % (AUTO) 0 % (0-10); EOSINOPHILS % (AUTO) 0 % (0-10); HEMATOCRIT 42 % (40-54); HEMOGLOBIN 14.5 g/dL (13.3-17.7); LYMPHOCYTES # (AUTO) 0.6 10^3/uL (1.0-4.0); LYMPHOCYTES % (AUTO) 8 % (12-44); MEAN CORPUSCULAR HEMOGLOBIN 31 pg (25-34); MEAN CORPUSCULAR HGB CONC 34 g/dL (32-36); MEAN CORPUSCULAR VOLUME 91 fL (80-99); MEAN PLATELET VOLUME 9.7 fL (9.0-12.2); MONOCYTES # (AUTO) 0.5 10^3/uL (0.0-1.0); MONOCYTES % (AUTO) 6 % (0-12); NEUTROPHILS # (AUTO) 6.6 10^3/uL (1.8-7.8); NEUTROPHILS % (AUTO) 85 % (42-75); PLATELET COUNT 223 10^3/uL (130-400); WHITE BLOOD COUNT 7.7 10^3/uL (4.3-11.0)
[2020-09-12 03:58] LABS: CHLORIDE 102 MMOL/L (98-107); POTASSIUM 3.9 MMOL/L (3.6-5.0); SODIUM 138 MMOL/L (135-145)
[2020-09-12 03:59] LABS: CALCIUM 8.9 MG/DL (8.5-10.1)
[2020-09-12 04:00] LABS: GLUCOSE 83 MG/DL (70-105)
[2020-09-12 04:01] LABS: CARBON DIOXIDE 25 MMOL/L (21-32)
[2020-09-12 04:04] LABS: GFR ESTIMATED > 60; PHOSPHORUS 3.4 MG/DL (2.3-4.7)
[2020-09-12 04:05] LABS: BUN/CREATININE RATIO 24
[2020-09-12] MEDS: POTASSIUM CL 10MEQ/50ML IVPB 50 ML IV SCH (04:29)
[2020-09-12] MEDS: MAGNESIUM 1 GM/100 ML IVPB 100 ML IV SCH (04:30)
[2020-09-12] MEDS: KCL 20 MEQ TAB (K-DUR) PO SCH (04:30)
[2020-09-12] MEDS: cefTRIAXone 1,000 MG in WATER (STERILE) FOR INJECTION 10 ML IV SCH (10:15)
[2020-09-12] MEDS: FAMOTIDINE 20 MG (PEPCID) TABLET PO SCH ×2 (10:16→20:46)
[2020-09-12] MEDS: busPIRone 5 MG (BUSPAR) TAB PO SCH ×2 (10:16→20:48)
--- NOTE | 2020-09-12 11:17 | Physical Therapy Daily Note ---
PT Daily Note-Current Subjective Patient is more alert and able to participate with PT. Very talkative. Mental Status Patient Orientation: Normal For Age Attachments: Oxygen (vapotherm 80%), Floyd Catheter, IV Transfers SCALE: Activities may be completed with or without assistive devices. 8-Zpkuaxayrg-zqmsbog completes the activity by him/herself with no assistance from a helper. 5-Set-up or Clean-up Assistance-helper sets up or cleans up; patient completes activity. [place] assists only prior to or following the activity. 4-Supervision or Touching Assistance-helper provides verbal cues and/or touching/steadying and/or contact guard assistance as patient completes activity. Assistance may be provided throughout the activity or intermittently. 3-Partial/Moderate Assistance-helper does LESS THAN HALF the effort. [place] lifts, holds or supports trunk or limbs, but provides less than half the effort. 2-Substantial/Maximal Assistance-helper does MORE THAN HALF the effort. [place] lifts or holds trunk or limbs and provides more than half the effort. 3-Asapjlajx-mwszfb does ALL the effort. Patient does none of the effort to complete the activity. Or, the assistance of 2 or more helpers is required for the patient to complete the activity. If activity was not attempted, code reason: 7-Patient Refused. 9-Not Applicable-not attempted and the patient did not perform the activity befo re the current illness, exacerbation or injury. 10-Not Attempted due to Environmental Limitations-(lack of equipment, weather re straints, etc.). 88-Not Attempted due to Medical Conditions or Safety Concerns. Sit to Stand (QC): 6 Gait Training Does the Patient Walk?: Yes Distance: 15' x 2 Walk 10 feet (QC): 6 Gait Assistive Device: None no julian LOB Exercises Standing: Heel/toe raises, Marching, Mini squats Standing Reps: 15 (4 sets) Assessment Patient much improved on this date. SAO2 remains >90%. RT notified. PT Short Term Goals Short Term Goals Time Frame: Sep 21, 2020 Roll Left & Right: 6 Sit to lyin Lying to sitting on side of be: 6 Sit to stand: 4 Chair/xtf-qg-nzsgm transfer: 4 Toilet transfer: 4 Walk 10 feet: 4 PT Circular Gang Saw Operator Goals Skilled Nursing Goals PT Circular Gang Saw Operator Goals Time Frame: Oct 05, 2020 Roll Left & Right (QC): 6 Sit to Lying (QC): 6 Lying-Sitting on Side/Bed(QC): 6 Sit to Stand (QC): 6 Chair/Npi-qh-Qtttn Xfer(QC): 6 Toilet Transfer (QC): 6 Walk 10 feet (QC): 6 Walk 50ft with 2 Turns (QC): 6 Walk 150 ft (QC): 6 PT Plan Treatment/Plan Treatment Plan: Continue Plan of Care Treatment Plan: Education, Functional Activity Saud, Functional Strength, Gait, Safety, Therapeutic Exercise, Transfers Treatment Duration: Oct 19, 2020 Frequency: 6 times per week Estimated Hrs Per Day: .25 hour per day Patient and/or Family Agrees t: Yes Time/GCodes Time In: 1030 Time Out: 1046 Total Billed Treatment Time: 16 Total Billed Treatment 1 visit EX 16 min ESPERANZA OTERO PT Sep 12, 2020 11:17
--- NOTE | 2020-09-12 13:28 | Tele-ICU Progress Note ---
Subjective Date Seen by a Provider: Sep 12, 2020 Time Seen by a Provider: 08:51 Sepsis Event Evaluation Height, Weight, BMI Height: 5'10.00" Weight: 195lbs. 8.0oz. 88.207471xt; 30.38 BMI Method: Exam Exam Patient acknowledged, consented, and participated in this virtual visit which was conducted using real time audio/video Vital Signs Date Time Temp Pulse Resp B/P (MAP) Pulse Ox O2 Delivery O2 Flow Rate FiO2 09/12/20 12:40 37.0 09/12/20 10:00 83 26 129/93 (105) 93 Vapotherm 25.00 80.00 09/12/20 09:00 81 29 128/102 (111) 91 Vapotherm 25.00 80.00 09/12/20 08:30 85 Vapotherm 25.00 80.00 09/12/20 08:05 37.0 09/12/20 08:00 92 137/101 (113) 90 Vapotherm 20.00 80.00 09/12/20 07:00 73 38 129/108 (115) 89 Vapotherm 20.00 80.00 09/12/20 07:00 73 09/12/20 06:40 90 Vapotherm 20.00 80 09/12/20 06:10 Vapotherm 20.00 80.00 09/12/20 06:00 65 14 146/99 (115) 89 Vapotherm 20.00 70.00 09/12/20 05:00 69 22 129/73 (91) 91 Vapotherm 20.00 70.00 09/12/20 04:00 93 Vapotherm 20.00 70 09/12/20 04:00 58 15 143/74 (97) 89 Vapotherm 20.00 70.00 09/12/20 03:49 Vapotherm 20.00 70.00 09/12/20 03:00 50 18 135/77 (96) 88 Vapotherm 20.00 60.00 09/12/20 02:17 90 Vapotherm 20.00 60 09/12/20 02:00 54 17 123/70 (87) 92 Vapotherm 20.00 60.00 09/12/20 01:00 49 14 117/66 (83) 92 Vapotherm 20.00 60.00 09/12/20 01:00 50 09/12/20 00:00 36.1 09/12/20 00:00 94 Vapotherm 20.00 60 09/12/20 00:00 48 15 119/76 (90) 92 Vapotherm 20.00 60.00 09/11/20 23:00 57 17 119/68 (85) 94 Vapotherm 20.00 60.00 09/11/20 22:35 92 Vapotherm 20.00 60 09/11/20 22:00 57 18 124/81 (95) 91 Vapotherm 20.00 60.00 09/11/20 21:00 50 13 129/79 (96) 94 Vapotherm 20.00 60.00 09/11/20 20:00 60 18 95/72 (80) 95 Vapotherm 20.00 60.00 09/11/20 20:00 94 Vapotherm 20.00 60 09/11/20 19:55 35.8 09/11/20 19:54 92 Vapotherm 20.00 60 09/11/20 19:00 52 09/11/20 19:00 54 18 125/75 (92) 95 Vapotherm 20.00 60.00 09/11/20 18:00 60 12 113/80 (91) 92 Vapotherm 20.00 60.00 09/11/20 17:00 56 16 123/83 (96) 94 Vapotherm 20.00 60.00 09/11/20 16:00 96 Vapotherm 20.00 60 09/11/20 16:00 Vapotherm 20.00 60.00 09/11/20 16:00 48 14 138/73 (94) 97 Vapotherm 20.00 60.00 09/11/20 15:51 36.4 09/11/20 15:04 95 Vapotherm 25.00 70 09/11/20 15:00 55 13 107/74 (85) 93 Vapotherm 25.00 70.00 09/11/20 14:00 59 18 106/69 (81) 92 Vapotherm 25.00 70.00 I & O 09/12/20 07:00 Intake Total 3780 ml Output Total 5025 ml Balance -1245 ml Height & Weight Height: 5'10.00" Weight: 195lbs. 8.0oz. [id number]; 30.38 BMI Method: General Appearance: No Apparent Distress, Anxious; No Mild Distress, No Moderate Distress; Other HEENT: PERRL/EOMI Neck: Full Range of Motion, Normal Inspection, Non Tender, Supple Respiratory: No Respiratory Distress, Decreased Breath Sounds (bases), Rhonci Cardiovascular: Regular Rate, Rhythm, No Murmur, Bradycardia Capillary Refill: Less Than 3 Seconds Gastrointestinal: normal bowel sounds, non tender, soft Extremity: No Calf Tenderness, No Pedal Edema, Pedal Edema Neurologic/Psychiatric: Alert, Oriented x3 Skin: Normal Color, Warm/Dry Lymphatic: No Adenopathy Results Lab Laboratory Tests 09/11/20 03:55 09/12/20 03:33 Assessment/Plan Assessment/Plan (Tele-ICU Physician , Progress Note ) Available chart/ vitals / labs / Images reviewed Video assessment done using teleICU camera, rest of exam as per RN Discussed with RN Events overnight : no events Afebrile hemodynamically stable, no pressors, I/O = neg 400 Drips: precedex off since 2 am As per RN exam : aurelio hopkins, no LOLA Consultants: Hospital course: 09/01 - admit with aoutpt dx of covid (09/06) transfered to ICU for increased O2 demands with aggitation//bipap- precedex. 09/11-CXR read as worse with bilateral opacities FiO2 70% vapotherm , 25L CXR 09/08 shows bilateral infiltrates but stable Cx blood cx sputum A/P Acute hypoxemic resp failure in the context of COVID 19 PNA -o2 vapotherm 30L 95%-today 80% 25 L COVID PNA -dexamethasone IV 6 qd -PE ro by CT , ddimer low - ABX - cefrtiaxone started 09/11 LFT's are elevated - to monitored - improving Lines : Floyd: - desats with movement OG: Nutrition: po Analgesia: na Anxiety/ delirium - precedex off and ativan PRN, buspar , xanax VTE Prophylaxis: mason 40 q24 Stress Ulcer Prophylaxis: h2 bl Glycemic Control: + Plans in collaboration with bedside consultants and IM MDs. Discussed with RN to reach out if any questions or concerns A total of 27 minutes of critical care time was devoted to this patient today, required to treat and/or prevent further deterioration of critical care condition ( as above ) . KHANG LEWIS MD Sep 12, 2020 13:28
--- NOTE | 2020-09-12 19:17 | Progress Note ---
Subjective Subjective Date Seen by Provider: Sep 12, 2020 Time Seen by Provider: 12:35 Patient 's improving on his oxygen requirement. 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 [facility] inquiring of admission. Review of Systems General: No Chills, No Night Sweats HEENT: No Head Aches Pulmonary: No Dyspnea; Cough (occassional) Cardiovascular: No: Chest Pain, Palpitations Gastrointestinal: Other (taste and smell decreased but improving); No: Nausea, Vomiting Genitourinary: No Dysuria Musculoskeletal: No: neck pain Neurological: Weakness; No: Confusion All Other Systems Reviewed All Other Systems Reviewed: Yes Objective Exam Vital Signs Vital Signs Date Time Temp Pulse Resp B/P (MAP) Pulse Ox O2 Delivery O2 Flow Rate FiO2 09/12/20 18:46 95 Vapotherm 20.00 50 09/12/20 18:23 Vapotherm 20.00 50.00 09/12/20 18:00 85 14 109/73 (85) 95 Vapotherm 25.00 80.00 09/12/20 17:00 36.2 09/12/20 17:00 75 21 112/91 (98) 95 Vapotherm 25.00 80.00 09/12/20 16:00 96 Vapotherm 20.00 60 09/12/20 16:00 75 16 117/78 (91) 81 Vapotherm 25.00 80.00 09/12/20 15:00 82 17 122/82 (95) 96 Vapotherm 25.00 80.00 09/12/20 14:35 37.0 83 97 09/12/20 14:01 97 Vapotherm 20.00 80 09/12/20 14:00 95 35 113/80 (91) 96 Vapotherm 25.00 80.00 09/12/20 13:00 95 13 122/90 (101) 96 Vapotherm 25.00 80.00 09/12/20 13:00 85 09/12/20 12:40 37.0 09/12/20 12:00 91 103/57 (72) 96 Vapotherm 25.00 80.00 09/12/20 12:00 92 Vapotherm 20.00 80 09/12/20 11:00 100 24 117/79 (92) 94 Vapotherm 25.00 80.00 09/12/20 10:00 83 26 129/93 (105) 93 Vapotherm 25.00 80.00 09/12/20 09:00 81 29 128/102 (111) 91 Vapotherm 25.00 80.00 09/12/20 09:00 85 Vapotherm 25.00 80 09/12/20 08:30 85 Vapotherm 25.00 80.00 09/12/20 08:05 37.0 09/12/20 08:00 92 137/101 (113) 90 Vapotherm 20.00 80.00 09/12/20 07:00 73 38 129/108 (115) 89 Vapotherm 20.00 80.00 09/12/20 07:00 73 09/12/20 06:40 90 Vapotherm 20.00 80 09/12/20 06:10 Vapotherm 20.00 80.00 09/12/20 06:00 65 14 146/99 (115) 89 Vapotherm 20.00 70.00 09/12/20 05:00 69 22 129/73 (91) 91 Vapotherm 20.00 70.00 09/12/20 04:00 93 Vapotherm 20.00 70 09/12/20 04:00 58 15 143/74 (97) 89 Vapotherm 20.00 70.00 09/12/20 03:49 Vapotherm 20.00 70.00 09/12/20 03:00 50 18 135/77 (96) 88 Vapotherm 20.00 60.00 09/12/20 02:17 90 Vapotherm 20.00 60 09/12/20 02:00 54 17 123/70 (87) 92 Vapotherm 20.00 60.00 09/12/20 01:00 49 14 117/66 (83) 92 Vapotherm 20.00 60.00 09/12/20 01:00 50 09/12/20 00:00 36.1 09/12/20 00:00 94 Vapotherm 20.00 60 09/12/20 00:00 48 15 119/76 (90) 92 Vapotherm 20.00 60.00 09/11/20 23:00 57 17 119/68 (85) 94 Vapotherm 20.00 60.00 09/11/20 22:35 92 Vapotherm 20.00 60 09/11/20 22:00 57 18 124/81 (95) 91 Vapotherm 20.00 60.00 09/11/20 21:00 50 13 129/79 (96) 94 Vapotherm 20.00 60.00 09/11/20 20:00 60 18 95/72 (80) 95 Vapotherm 20.00 60.00 09/11/20 20:00 94 Vapotherm 20.00 60 09/11/20 19:55 35.8 09/11/20 19:54 92 Vapotherm 20.00 60 I & O 09/12/20 06:59 Intake Total 3780 ml Output Total 5025 ml Balance -1245 ml General Appearance: No Apparent Distress, Anxious; No Mild Distress, No Moderate Distress; Other Eyes: Bilateral Eye Normal Inspection, Bilateral Eye PERRL, Bilateral Eye EOMI HEENT: PERRL/EOMI Neck: Full Range of Motion, Normal Inspection, Non Tender, Supple Respiratory: No Respiratory Distress, Decreased Breath Sounds (bases), Rhonci Cardiovascular: Regular Rate, Rhythm, No Murmur, Bradycardia Gastrointestinal: Normal Bowel Sounds, Non Tender, Soft Rectal: Deferred Back: Normal Inspection, No CVA Tenderness, No Vertebral Tenderness Extremity: No Calf Tenderness, No Pedal Edema, Pedal Edema Neurologic/Psychiatric: Alert, Oriented x3 Skin: Normal Color, Warm/Dry Lymphatic: No Adenopathy Results Lab Laboratory Tests 09/12/20 03:33: White Blood Count 7.7, Red Blood Count 4.63, Hemoglobin 14.5, Hematocrit 42, Mean Corpuscular Volume 91, Mean Corpuscular Hemoglobin 31, Mean Corpuscular Hemoglobin Concent 34, Red Cell Distribution Width 12.6, Platelet Count 223, Mean Platelet Volume 9.7, Immature Granulocyte % (Auto) 1, Neutrophils (%) (Auto) 85H, Lymphocytes (%) (Auto) 8L, Monocytes (%) (Auto) 6, Eosinophils (%) (Auto) 0, Basophils (%) (Auto) 0, Neutrophils # (Auto) 6.6, Lymphocytes # (Auto) 0.6L, Monocytes # (Auto) 0.5, Eosinophils # (Auto) 0.0, Basophils # (Auto) 0.0, Immature Granulocyte # (Auto) 0.1, Sodium Level 138, Potassium Level 3.9, Chloride Level 102, Carbon Dioxide Level 25, Anion Gap 11, Blood Urea Nitrogen 17, Creatinine 0.70, Estimat Glomerular Filtration Rate > 60, BUN/Creatinine Ratio 24, Glucose Level 83, Calcium Level 8.9, Phosphorus Level 3.4, Magnesium Level 2.0 Microbiology 09/06/20 MRSA Screen - Final, Complete MRSA not isolated Assessment/Plan Assessment/Plan Assessment and Plan 09/02/20- stopped IVF. monitoring LFTs, about the same. on 5L oxygen but not working hard to breath at all. Encouraged him to get up and walk around the room. will start azithromycin for 5 days to cover for pneumonia -continue covid protocol- dexamethasone. 09/03/20- stopping remdesivir as he is improving and started improving prior to starting it. LFTs higher today. Encourage Incentive spirometry. Updated sister, she is rightfully concerned. But he is not working hard to breath. We will do a trial of vapotherm and see how he does with it. 09/04/20- on vapotherm- switched to 10L NC- and holding oxygen saturation 93- 94%. WBC, Hgb, platelets normal. LFTs elevated more today. Will give him an additional dose of dexamethasone 10mg one time via IV. Ordered a chest xray. ABG from yesterday looks to be venous and not arterial. He is slowly improving. I would like to get him home 09/06/20 09/05/20- a little set back with panic attack today. Gave him 0.5mg lorazepam IV to help calm him down. Lungs were completely clear on auscultation. He was looking good this AM- ate all his breakfast and was feeling good until he took a shower then the panic attack hit him. Tried to go to 10L high flow- did not stay >90% so put back on vapotherm. 09/06/20- definitely a mental component- not use to being in the hospital, "COVID brain". Patient is not working hard to breath but is requiring Vapotherm to keep his oxygen sats above 90%. He has xanax 0.5mg BID prn that seems to help with his anxiety and panic attacks. Transferred to ICU due to increase in Vapotherm need but turns out to be more of panic attack rather than escalation in oxygen needs. Likely to transfer back to [facility] in the next day. Consulted Pulm. Day 11 of symptoms. CXR improve compared to 2 days ago. 09/09/20- on BiPAP will try to get him down to Vapotherm today. He is not hungry. He has not been drinking much fluid since getting the bipap. Will add on D5LR @125ml/hr until he starts taking po. He has started to improve. He agrees with not giving up. LFTs up again. Continue dexamethasone, lovenox. Still positive for COVID. Would like to find out what variant. 09/10/20- on vapotherm. Continue lovenox, dexamethasone. Checking LFTs tomorrow. Slowly improving. Prognosis guarding but a little better. 09/11/20- decreased IVF to 75ml/hr since he is eating/drinking better. Added on rocephin 1g daily to broaden coverage as his CXR isnt better. Improvement on his oxygen requirement though. And patient reports he is doing better, feeling better. 09/12/20- He is making good improvement in the last couple days- continue current regimen. I would like to keep him inpatient and not send him to [facility] as his psych likely would not handle it. He may be able to transfer down to 4th floor tomorrow or Wednesday. Increase buspar to BID. dispo: continue inpatient- monitor as above. DVT ppx: lovenox. Problems: (1) COVID-19 (2) Elevated liver enzymes (3) Acute respiratory failure with hypoxia (4) Anxiety Assessment & Plan: on buspar, xanax prn (5) Stress WILBUR MYLES MD Sep 12, 2020 19:17
[2020-09-12] MEDS: MELATONIN 10 MG TABLET PO SCH (20:46)
[2020-09-12] MEDS: ENOXAPARIN 40 MG/0.4 ML (LOVENOX) SYR SC SCH (20:46)
[2020-09-13] VITALS (23 sets, daily range): BP systolic 97–155; BP diastolic 64–141
[2020-09-13] MEDS: RT-ALBUTEROL INHALER HFA (VENTOLIN HFA) 18 GM IH SCH ×7 (02:15→22:12)
[2020-09-13 03:21] LABS: BASOPHILS % (AUTO) 0 % (0-10); EOSINOPHILS % (AUTO) 0 % (0-10); HEMATOCRIT 41 % (40-54); HEMOGLOBIN 13.7 g/dL (13.3-17.7); LYMPHOCYTES # (AUTO) 0.8 10^3/uL (1.0-4.0); LYMPHOCYTES % (AUTO) 12 % (12-44); MEAN CORPUSCULAR HEMOGLOBIN 30 pg (25-34); MEAN CORPUSCULAR HGB CONC 33 g/dL (32-36); MEAN CORPUSCULAR VOLUME 92 fL (80-99); MEAN PLATELET VOLUME 10.2 fL (9.0-12.2); MONOCYTES # (AUTO) 0.5 10^3/uL (0.0-1.0); MONOCYTES % (AUTO) 7 % (0-12); NEUTROPHILS # (AUTO) 5.4 10^3/uL (1.8-7.8); NEUTROPHILS % (AUTO) 81 % (42-75); PLATELET COUNT 234 10^3/uL (130-400); WHITE BLOOD COUNT 6.8 10^3/uL (4.3-11.0)
[2020-09-13 03:35] LABS: CHLORIDE 104 MMOL/L (98-107); SODIUM 139 MMOL/L (135-145)
[2020-09-13 03:36] LABS: CALCIUM 8.6 MG/DL (8.5-10.1)
[2020-09-13 03:37] LABS: GLUCOSE 95 MG/DL (70-105)
[2020-09-13 03:39] LABS: CARBON DIOXIDE 23 MMOL/L (21-32)
[2020-09-13 03:41] LABS: CREATININE SERUM 0.74 MG/DL (0.60-1.30); GFR ESTIMATED > 60; PHOSPHORUS 4.4 MG/DL (2.3-4.7)
[2020-09-13 03:42] LABS: BUN/CREATININE RATIO 26
[2020-09-13 03:44] LABS: MAGNESIUM 2.2 MG/DL (1.6-2.4)
[2020-09-13] MEDS: KCL 20 MEQ TAB (K-DUR) PO SCH (05:44)
[2020-09-13] MEDS: POTASSIUM CL 10MEQ/50ML IVPB 50 ML IV SCH (05:44)
[2020-09-13] MEDS: MAGNESIUM 1 GM/100 ML IVPB 100 ML IV SCH (05:44)
[2020-09-13] MEDS: cefTRIAXone 1,000 MG in WATER (STERILE) FOR INJECTION 10 ML IV SCH (08:08)
[2020-09-13] MEDS: FAMOTIDINE 20 MG (PEPCID) TABLET PO SCH ×2 (08:08→20:00)
[2020-09-13] MEDS: busPIRone 5 MG (BUSPAR) TAB PO SCH ×2 (08:08→20:00)
--- NOTE | 2020-09-13 08:59 | Diagnostic Imaging Report ---
INDICATION: Covid-19 pneumonia, follow-up. TIME OF EXAM: 8:30 AM Correlation is made with prior chest from 09/11/2020. FINDINGS: Heart size stable. There are bilateral pulmonary infiltrates, similar to yesterday. No effusion or pneumothorax is seen. IMPRESSION: Stable bilateral pulmonary infiltrates when compared with exam one day earlier. Dictated by: Dictated on workstation # [id number]
--- NOTE | 2020-09-13 09:10 | Tele-ICU Progress Note ---
Subjective Date Seen by a Provider: Sep 13, 2020 Time Seen by a Provider: 09:01 Subjective/Events-last exam Telemetry eICU progress note. I have reviewed the case with bedside RN and video visit made. He is sitting in the bedside chair currently on Vapotherm with 20 L of oxygen and 55% FiO2 with an oxygen saturation of 96%. He is well oriented and in no acute distress. He did not tolerate remdesivir due to elevated liver enzymes. Review of Systems Pulmonary: Dyspnea, Cough, Other (ANXIETY IMPROVING) Sepsis Event Evaluation Height, Weight, BMI Height: 5'10.00" Weight: 195lbs. 8.0oz. 88.897140zw; 30.38 BMI Method: Exam Exam Patient acknowledged, consented, and participated in this virtual visit which was conducted using real time audio/video Vital Signs Date Time Temp Pulse Resp B/P (MAP) Pulse Ox O2 Delivery O2 Flow Rate FiO2 09/13/20 08:05 36.8 94 Vapotherm 20.00 55.00 09/13/20 08:00 74 8 113/75 (88) 95 Vapotherm 25.00 50.00 09/13/20 07:11 96 Vapotherm 25.00 60 09/13/20 07:00 67 10 99/71 (80) 96 Vapotherm 25.00 50.00 09/13/20 07:00 67 09/13/20 06:11 36.6 09/13/20 06:00 70 10 114/67 (83) 89 Vapotherm 25.00 50.00 09/13/20 05:00 71 13 106/72 (83) 90 Vapotherm 25.00 50.00 09/13/20 04:00 91 Vapotherm 20.00 50 09/13/20 04:00 62 15 120/72 (88) 91 Vapotherm 25.00 50.00 09/13/20 03:00 70 16 109/78 (88) 91 Vapotherm 25.00 50.00 09/13/20 02:15 89 Vapotherm 20.00 50 09/13/20 02:00 61 13 106/74 (85) 91 Vapotherm 25.00 50.00 09/13/20 01:00 66 13 106/77 (87) 92 Vapotherm 25.00 50.00 09/13/20 01:00 70 09/13/20 00:00 67 13 103/70 (81) 90 Vapotherm 25.00 50.00 09/13/20 00:00 91 Vapotherm 20.00 50 09/13/20 00:00 36.8 09/12/20 23:00 65 13 109/65 (80) 90 Vapotherm 25.00 50.00 09/12/20 22:06 90 Vapotherm 20.00 50 09/12/20 22:00 65 21 113/74 (87) 91 Vapotherm 25.00 50.00 09/12/20 21:00 76 22 115/75 (88) 91 Vapotherm 25.00 50.00 09/12/20 20:47 37.0 09/12/20 20:00 91 Vapotherm 20.00 50 09/12/20 20:00 76 26 112/66 (81) 92 Vapotherm 25.00 50.00 09/12/20 19:00 87 09/12/20 19:00 90 16 121/72 (88) 93 Vapotherm 25.00 50.00 09/12/20 18:46 95 Vapotherm 20.00 50 09/12/20 18:23 Vapotherm 20.00 50.00 09/12/20 18:00 85 14 109/73 (85) 95 Vapotherm 25.00 80.00 09/12/20 17:00 36.2 09/12/20 17:00 75 21 112/91 (98) 95 Vapotherm 25.00 80.00 09/12/20 16:00 96 Vapotherm 20.00 60 09/12/20 16:00 75 16 117/78 (91) 81 Vapotherm 25.00 80.00 09/12/20 15:00 82 17 122/82 (95) 96 Vapotherm 25.00 80.00 09/12/20 14:35 37.0 83 97 09/12/20 14:01 97 Vapotherm 20.00 80 09/12/20 14:00 95 35 113/80 (91) 96 Vapotherm 25.00 80.00 09/12/20 13:00 95 13 122/90 (101) 96 Vapotherm 25.00 80.00 09/12/20 13:00 85 09/12/20 12:40 37.0 09/12/20 12:00 91 103/57 (72) 96 Vapotherm 25.00 80.00 09/12/20 12:00 92 Vapotherm 20.00 80 09/12/20 11:00 100 24 117/79 (92) 94 Vapotherm 25.00 80.00 09/12/20 10:00 83 26 129/93 (105) 93 Vapotherm 25.00 80.00 I & O0 09/13/20 07:00 Intake Total 2720 ml Output Total 3960 ml Balance -1240 ml Height & Weight Height: 5'10.00" Weight: 195lbs. 8.0oz. 88.032729ez; 30.38 BMI Method: General Appearance: No Apparent Distress, Anxious; No Mild Distress, No Moderate Distress; Other HEENT: PERRL/EOMI Neck: Full Range of Motion, Normal Inspection, Non Tender, Supple Respiratory: No Respiratory Distress, Decreased Breath Sounds (bases), Rhonci Cardiovascular: Regular Rate, Rhythm, No Murmur, Bradycardia Capillary Refill: Less Than 3 Seconds Gastrointestinal: normal bowel sounds, non tender, soft Extremity: No Calf Tenderness, No Pedal Edema, Pedal Edema Neurologic/Psychiatric: Alert, Oriented x3 Skin: Normal Color, Warm/Dry Lymphatic: No Adenopathy Results Lab Laboratory Tests 09/12/20 03:33 09/13/20 02:42 Radiology CXR REVIEWED BY ME PERSONALLY WITH PACS. JUAN. INFILTRATES PRESENT. NO CHANGE Assessment/Plan Assessment/Plan 1. Acute Covid19 pneumonia He is currently on dexamethasone and supplemental oxygen. 2. Acute hypoxic respiratory failure on Vapotherm with the 20 L/min with 55% FiO2. 3. Elevated liver enzymes secondary to combination of Covid pneumonia as well as a remdesivir. Remdesivir has been discontinued. Liver enzymes are trending down 4. Anxiety improving. 5. GI prophylaxis with H2 blockers. 6. Glycemic controladequate 7. Renal function within normal limit 8. Urine analysis pending. Critical Care: Critically Ill Patient Time spent with patient (mins): 35 Diagnosis/Problems Diagnosis/Problems (1) COVID-19 Status: Acute (2) Elevated liver enzymes (3) Acute respiratory failure with hypoxia RIK ESPAÑA MD Sep 13, 2020 09:10
[2020-09-13] MEDS: RT-ALBUTEROL INHALER HFA (VENTOLIN HFA) 18 GM IH PRN (11:59)
[2020-09-13 13:11] LABS: BILIRUBIN,URINE NEGATIVE (NEGATIVE); CLARITY,URINE CLEAR; COLOR,URINE YELLOW; GLUCOSE, URINE (UA) NEGATIVE (NEGATIVE); KETONES,URINE NEGATIVE (NEGATIVE); LEUKOCYTE ESTERASE ,URINE NEGATIVE (NEGATIVE); NITRITE,URINE NEGATIVE (NEGATIVE); PROTEIN,URINE NEGATIVE (NEGATIVE)
[2020-09-13 13:24] LABS: BACTERIA,URINE TRACE /HPF; RBC,URINE RARE /HPF; WBC,URINE RARE /HPF
--- NOTE | 2020-09-13 14:43 | Physical Therapy Daily Note ---
PT Daily Note-Current Subjective Patient in recliner pre tx, agrees to PT, has no complaints of pain. Appearance Patient in recliner post tx with nurse call, phone, tray, all needs met. Mental Status Patient Orientation: Person, Place, Situation Attachments: Oxygen, Floyd Catheter Transfers SCALE: Activities may be completed with or without assistive devices. 9-Keoqrmbijx-uaypujx completes the activity by him/herself with no assistance from a helper. 5-Set-up or Clean-up Assistance-helper sets up or cleans up; patient completes activity. [place] assists only prior to or following the activity. 4-Supervision or Touching Assistance-helper provides verbal cues and/or touching/steadying and/or contact guard assistance as patient completes a ctivity. Assistance may be provided throughout the activity or intermittently. 3-Partial/Moderate Assistance-helper does LESS THAN HALF the effort. [place] lifts, holds or supports trunk or limbs, but provides less than half the effort. 2-Substantial/Maximal Assistance-helper does MORE THAN HALF the effort. [place] lifts or holds trunk or limbs and provides more than half the effort. 9-Wtsvfulbi-skpsjz does ALL the effort. Patient does none of the effort to complete the activity. Or, the assistance of 2 or more helpers is required for the patient to complete the activity. If activity was not attempted, code reason: 7-Patient Refused. 9-Not Applicable-not attempted and the patient did not perform the activity before the current illness, exacerbation or injury. 10-Not Attempted due to Environmental Limitations-(lack of equipment, weather restraints, etc.). 88-Not Attempted due to Medical Conditions or Safety Concerns. Sit to Stand (QC): 4 Chair/Nrv-xu-Iyeoz Xfer(QC): 4 Gait Training Distance: 15'x8 Walk 10 feet (QC): 4 Gait Persons Needed: 1 Patient ambulated from the head of the bed on one side to the head of the bed on the other side and then back 4 times. His O2 stayed at 90% or above the whole time and he did not get SOB. He stayed close to the bed in case he needed to place his hand on it for balance and he actually had two instances where he needed steadying assist from therapist to maintain balance. Treatments transfers, ambulation Assessment Current Status: Fair Progress improving endurance, unsteady with ambulation PT Short Term Goals Short Term Goals Time Frame: Sep 21, 2020 Roll Left & Right: 6 Sit to lyin Lying to sitting on side of be: 6 Sit to stand: 4 Chair/xby-my-srnix transfer: 4 Toilet transfer: 4 Walk 10 feet: 4 PT Flat Clothier Goals Flat Clothier Goals PT [facility] Goals Time Frame: Oct 05, 2020 Roll Left & Right (QC): 6 Sit to Lying (QC): 6 Lying-Sitting on Side/Bed(QC): 6 Sit to Stand (QC): 6 Chair/Tup-kh-Cukjf Xfer(QC): 6 Toilet Transfer (QC): 6 Walk 10 feet (QC): 6 Walk 50ft with 2 Turns (QC): 6 Walk 150 ft (QC): 6 PT Plan Problem List Problem List: Activity Tolerance, Functional Strength, Safety, Balance, Gait, Transfer, ROM Treatment/Plan Treatment Plan: Continue Plan of Care Treatment Plan: Education, Functional Activity Saud, Functional Strength, Gait, Safety, Therapeutic Exercise, Transfers Treatment Duration: Oct 19, 2020 Frequency: 6 times per week Estimated Hrs Per Day: .25 hour per day Patient and/or Family Agrees t: Yes Safety Risks/Education Patient Education: Gait Training, Transfer Techniques, Correct Positioning, Safety Issues Teaching Recipient: Patient Teaching Methods: Demonstration, Discussion Response to Teaching: Reinforcement Needed Time/GCodes Time In: 1420 Time Out: 1432 Total Billed Treatment Time: 12 Total Billed Treatment 1 visit GT 12' STEFANIE KNUTSON PT Sep 13, 2020 14:43
--- NOTE | 2020-09-13 14:44 | Progress Note ---
Subjective Subjective Date Seen by Provider: Sep 13, 2020 Time Seen by Provider: 12:35 Sitting up in a recliner- conversing well- reports he is feeling better. Feels like today has been the best day. Denies confusion. Does have frustration still as he would like to go home. I have attempted to call his son but unsuccessful. I left him a message. Patient said he updated his son. Review of Systems General: No Chills, No Night Sweats HEENT: No Head Aches Pulmonary: Dyspnea (improving), Cough, Other Cardiovascular: No: Chest Pain, Palpitations Gastrointestinal: Other (taste and smell decreased but improving); No: Nausea, Vomiting Genitourinary: No Dysuria Musculoskeletal: No: neck pain Neurological: Weakness; No: Confusion All Other Systems Reviewed All Other Systems Reviewed: Yes Objective Exam Vital Signs Vital Signs Date Time Temp Pulse Resp B/P (MAP) Pulse Ox O2 Delivery O2 Flow Rate FiO2 09/13/20 14:00 82 19 108/85 (93) 97 Vapotherm 20.00 45.00 09/13/20 13:00 82 9 106/84 (91) 94 Vapotherm 20.00 45.00 09/13/20 12:30 72 09/13/20 12:00 72 7 106/77 (87) 98 Vapotherm 20.00 45.00 09/13/20 11:59 97 Vapotherm 25.00 55 09/13/20 11:00 88 20 97 Vapotherm 20.00 55.00 09/13/20 10:00 76 18 110/74 (86) 95 Vapotherm 20.00 55.00 09/13/20 09:00 71 15 92 Vapotherm 20.00 55.00 09/13/20 08:15 96 Vapotherm 20.00 55 09/13/20 08:05 36.8 94 Vapotherm 20.00 55.00 09/13/20 08:00 74 8 113/75 (88) 95 Vapotherm 25.00 50.00 09/13/20 07:11 96 Vapotherm 25.00 60 09/13/20 07:00 67 10 99/71 (80) 96 Vapotherm 25.00 50.00 09/13/20 07:00 67 09/13/20 06:11 36.6 09/13/20 06:00 70 10 114/67 (83) 89 Vapotherm 25.00 50.00 09/13/20 05:00 71 13 106/72 (83) 90 Vapotherm 25.00 50.00 09/13/20 04:00 91 Vapotherm 20.00 50 09/13/20 04:00 62 15 120/72 (88) 91 Vapotherm 25.00 50.00 09/13/20 03:00 70 16 109/78 (88) 91 Vapotherm 25.00 50.00 09/13/20 02:15 89 Vapotherm 20.00 50 09/13/20 02:00 61 13 106/74 (85) 91 Vapotherm 25.00 50.00 09/13/20 01:00 66 13 106/77 (87) 92 Vapotherm 25.00 50.00 09/13/20 01:00 70 09/13/20 00:00 67 13 103/70 (81) 90 Vapotherm 25.00 50.00 09/13/20 00:00 91 Vapotherm 20.00 50 09/13/20 00:00 36.8 09/12/20 23:00 65 13 109/65 (80) 90 Vapotherm 25.00 50.00 09/12/20 22:06 90 Vapotherm 20.00 50 09/12/20 22:00 65 21 113/74 (87) 91 Vapotherm 25.00 50.00 09/12/20 21:00 76 22 115/75 (88) 91 Vapotherm 25.00 50.00 09/12/20 20:47 37.0 09/12/20 20:00 91 Vapotherm 20.00 50 09/12/20 20:00 76 26 112/66 (81) 92 Vapotherm 25.00 50.00 09/12/20 19:00 87 09/12/20 19:00 90 16 121/72 (88) 93 Vapotherm 25.00 50.00 09/12/20 18:46 95 Vapotherm 20.00 50 09/12/20 18:23 Vapotherm 20.00 50.00 09/12/20 18:00 85 14 109/73 (85) 95 Vapotherm 25.00 80.00 09/12/20 17:00 36.2 09/12/20 17:00 75 21 112/91 (98) 95 Vapotherm 25.00 80.00 09/12/20 16:00 96 Vapotherm 20.00 60 09/12/20 16:00 75 16 117/78 (91) 81 Vapotherm 25.00 80.00 09/12/20 15:00 82 17 122/82 (95) 96 Vapotherm 25.00 80.00 I & O 09/13/20 07:00 Intake Total 2720 ml Output Total 3960 ml Balance -1240 ml General Appearance: No Apparent Distress, Anxious; No Mild Distress, No Moderate Distress Eyes: Bilateral Eye Normal Inspection, Bilateral Eye PERRL, Bilateral Eye EOMI HEENT: PERRL/EOMI Neck: Full Range of Motion, Normal Inspection, Non Tender, Supple Respiratory: No Respiratory Distress, Decreased Breath Sounds (bases), Rhonci Cardiovascular: Regular Rate, Rhythm, No Murmur, Bradycardia Gastrointestinal: Normal Bowel Sounds, Non Tender, Soft Rectal: Deferred Back: Normal Inspection, No CVA Tenderness, No Vertebral Tenderness Extremity: No Calf Tenderness, No Pedal Edema Neurologic/Psychiatric: Alert, Oriented x3 Skin: Normal Color, Warm/Dry Lymphatic: No Adenopathy Results Lab Laboratory Tests 09/13/20 02:42: White Blood Count 6.8, Red Blood Count 4.50, Hemoglobin 13.7, Hematocrit 41, Mean Corpuscular Volume 92, Mean Corpuscular Hemoglobin 30, Mean Corpuscular Hemoglobin Concent 33, Red Cell Distribution Width 13.0, Platelet Count 234, Mean Platelet Volume 10.2, Immature Granulocyte % (Auto) 1, Neutrophils (%) (Auto) 81H, Lymphocytes (%) (Auto) 12, Monocytes (%) (Auto) 7, Eosinophils (%) (Auto) 0, Basophils (%) (Auto) 0, Neutrophils # (Auto) 5.4, Lymphocytes # (Auto) 0.8L, Monocytes # (Auto) 0.5, Eosinophils # (Auto) 0.0, Basophils # (Auto) 0.0, Immature Granulocyte # (Auto) 0.1, Sodium Level 139, Potassium Level 4.0, Chloride Level 104, Carbon Dioxide Level 23, Anion Gap 12, Blood Urea Nitrogen 19H, Creatinine 0.74, Estimat Glomerular Filtration Rate > 60, BUN/Creatinine Ratio 26, Glucose Level 95, Calcium Level 8.6, Phosphorus Level 4.4, Magnesium Level 2.2 09/13/20 11:17: Urine Color YELLOW, Urine Clarity CLEAR, Urine pH 7.0, Urine Specific [place] 1.010L, Urine Protein NEGATIVE, Urine Glucose (UA) NEGATIVE, Urine Ketones NEGATIVE, Urine Nitrite NEGATIVE, Urine Bilirubin NEGATIVE, Urine Urobilinogen 1.0, Urine Leukocyte Esterase NEGATIVE, Urine RBC (Auto) NEGATIVE, Urine RBC RARE, Urine WBC RARE, Urine Squamous Epithelial Cells NONE, Urine Crystals NONE, Urine Bacteria TRACE, Urine Casts NONE, Urine Mucus NEGATIVE, Urine Culture Indicated NO Microbiology 09/06/20 MRSA Screen - Final, Complete MRSA not isolated Assessment/Plan Assessment/Plan Assessment and Plan 09/02/20- stopped IVF. monitoring LFTs, about the same. on 5L oxygen but not working hard to breath at all. Encouraged him to get up and walk around the room. will start azithromycin for 5 days to cover for pneumonia -continue covid protocol- dexamethasone. 09/03/20- stopping remdesivir as he is improving and started improving prior to starting it. LFTs higher today. Encourage Incentive spirometry. Updated sister, she is rightfully concerned. But he is not working hard to breath. We will do a trial of vapotherm and see how he does with it. 09/04/20- on vapotherm- switched to 10L NC- and holding oxygen saturation 93- 94%. WBC, Hgb, platelets normal. LFTs elevated more today. Will give him an additional dose of dexamethasone 10mg one time via IV. Ordered a chest xray. ABG from yesterday looks to be venous and not arterial. He is slowly improving. I would like to get him home 09/06/20 09/05/20- a little set back with panic attack today. Gave him 0.5mg lorazepam IV to help calm him down. Lungs were completely clear on auscultation. He was looking good this AM- ate all his breakfast and was feeling good until he took a shower then the panic attack hit him. Tried to go to 10L high flow- did not stay >90% so put back on vapotherm. 09/06/20- definitely a mental component- not use to being in the hospital, "COVID brain". Patient is not working hard to breath but is requiring Vapotherm to keep his oxygen sats above 90%. He has xanax 0.5mg BID prn that seems to help with his anxiety and panic attacks. Transferred to ICU due to increase in Vapotherm need but turns out to be more of panic attack rather than escalation in oxygen needs. Likely to transfer back to 4th in the next day. Consulted Pulm. Day 11 of symptoms. CXR improve compared to 2 days ago. 09/09/20- on BiPAP will try to get him down to Vapotherm today. He is not hungry. He has not been drinking much fluid since getting the bipap. Will add on D5LR @125ml/hr until he starts taking po. He has started to improve. He agrees with not giving up. LFTs up again. Continue dexamethasone, lovenox. Still positive for COVID. Would like to find out what variant. 09/10/20- on vapotherm. Continue lovenox, dexamethasone. Checking LFTs tomorrow. Slowly improving. Prognosis guarding but a little better. 09/11/20- decreased IVF to 75ml/hr since he is eating/drinking better. Added on rocephin 1g daily to broaden coverage as his CXR isnt better. Improvement on his oxygen requirement though. And patient reports he is doing better, feeling better. 09/12/20- He is making good improvement in the last couple days- continue current regimen. I would like to keep him inpatient and not send him to [facility] as his psych likely would not handle it. He may be able to transfer down to 4th floor tomorrow or Wednesday. Increased buspar to BID. 09/13/20- continuing to improve - RT to continue titrating vapotherm down and likely back to high flow oxygen over this weekend. May transfer to the floor if bed availability in ICU is needed. Otherwise transfer to floor in AM. Will complete dispo: continue inpatient- monitor as above. DVT ppx: lovenox. Problems: (1) COVID-19 (2) Elevated liver enzymes (3) Acute respiratory failure with hypoxia (4) Anxiety Assessment & Plan: on buspar, xanax prn (5) Stress WILBUR MYLES MD Sep 13, 2020 14:44
[2020-09-13] MEDS: MELATONIN 10 MG TABLET PO SCH (20:00)
[2020-09-13] MEDS: ENOXAPARIN 40 MG/0.4 ML (LOVENOX) SYR SC SCH (20:00)
[2020-09-14] VITALS (11 sets, daily range): BP systolic 107–167; BP diastolic 62–112
[2020-09-14] MEDS: RT-ALBUTEROL INHALER HFA (VENTOLIN HFA) 18 GM IH SCH ×6 (02:00→22:09)
[2020-09-14 03:53] LABS: BASOPHILS % (AUTO) 0 % (0-10); EOSINOPHILS % (AUTO) 0 % (0-10); HEMATOCRIT 40 % (40-54); HEMOGLOBIN 13.5 g/dL (13.3-17.7); LYMPHOCYTES # (AUTO) 0.7 10^3/uL (1.0-4.0); LYMPHOCYTES % (AUTO) 12 % (12-44); MEAN CORPUSCULAR HEMOGLOBIN 31 pg (25-34); MEAN CORPUSCULAR HGB CONC 33 g/dL (32-36); MEAN CORPUSCULAR VOLUME 92 fL (80-99); MONOCYTES # (AUTO) 0.6 10^3/uL (0.0-1.0); MONOCYTES % (AUTO) 10 % (0-12); NEUTROPHILS # (AUTO) 4.8 10^3/uL (1.8-7.8); NEUTROPHILS % (AUTO) 77 % (42-75); PLATELET COUNT 261 10^3/uL (130-400); WHITE BLOOD COUNT 6.2 10^3/uL (4.3-11.0)
[2020-09-14 04:10] LABS: ALBUMIN 2.9 GM/DL (3.2-4.5); CHLORIDE 105 MMOL/L (98-107); POTASSIUM 4.2 MMOL/L (3.6-5.0); SODIUM 140 MMOL/L (135-145)
[2020-09-14 04:11] LABS: CALCIUM 8.4 MG/DL (8.5-10.1)
[2020-09-14 04:13] LABS: GLUCOSE 93 MG/DL (70-105); TOTAL PROTEIN 6.1 GM/DL (6.4-8.2)
[2020-09-14 04:14] LABS: BILIRUBIN,TOTAL 0.6 MG/DL (0.1-1.0); CARBON DIOXIDE 21 MMOL/L (21-32)
[2020-09-14 04:16] LABS: ALKALINE PHOSPHATASE 100 U/L (40-136); PHOSPHORUS 4.2 MG/DL (2.3-4.7)
[2020-09-14 04:17] LABS: CREATININE SERUM 0.73 MG/DL (0.60-1.30); GFR ESTIMATED > 60
[2020-09-14 04:18] LABS: BILIRUBIN,DIRECT 0.3 MG/DL (0.0-0.3); BILIRUBIN,INDIRECT 0.3 MG/DL; BUN/CREATININE RATIO 29
[2020-09-14 04:19] LABS: ALANINE AMINOTRANSFERASE 284 U/L (0-55); MAGNESIUM 2.2 MG/DL (1.6-2.4)
[2020-09-14] MEDS: MAGNESIUM 1 GM/100 ML IVPB 100 ML IV SCH (04:38)
[2020-09-14] MEDS: POTASSIUM CL 10MEQ/50ML IVPB 50 ML IV SCH (04:38)
[2020-09-14] MEDS: KCL 20 MEQ TAB (K-DUR) PO SCH (04:38)
[2020-09-14] MEDS: cefTRIAXone 1,000 MG in WATER (STERILE) FOR INJECTION 10 ML IV SCH (08:19)
[2020-09-14] MEDS: FAMOTIDINE 20 MG (PEPCID) TABLET PO SCH ×2 (08:20→20:26)
[2020-09-14] MEDS: busPIRone 5 MG (BUSPAR) TAB PO SCH ×2 (08:20→20:26)
--- NOTE | 2020-09-14 08:51 | Physical Therapy Daily Note ---
PT Daily Note-Current Subjective Patient is in bed and on 4L O2 HF NC. Patient is highly motivated with progress. Agrees to PT. Mental Status Patient Orientation: Normal For Age Attachments: Oxygen (4L HF), Simon Catheter Transfers SCALE: Activities may be completed with or without assistive devices. 0-Jkjxzorehy-ssubbgo completes the activity by him/herself with no assistance from a helper. 5-Set-up or Clean-up Assistance-helper sets up or cleans up; patient completes activity. [place] assists only prior to or following the activity. 4-Supervision or Touching Assistance-helper provides verbal cues and/or touching/steadying and/or contact guard assistance as patient completes activity. Assistance may be provided throughout the activity or intermittently. 3-Partial/Moderate Assistance-helper does LESS THAN HALF the effort. Rochert lifts, holds or supports trunk or limbs, but provides less than half the effort. 2-Substantial/Maximal Assistance-helper does MORE THAN HALF the effort. Rochert lifts or holds trunk or limbs and provides more than half the effort. 1-Kfabkwzyx-xtgcbl does ALL the effort. Patient does none of the effort to complete the activity. Or, the assistance of 2 or more helpers is required for the patient to complete the activity. If activity was not attempted, code reason: 7-Patient Refused. 9-Not Applicable-not attempted and the patient did not perform the activity before the current illness, exacerbation or injury. 10-Not Attempted due to Environmental Limitations-(lack of equipment, weather restraints, etc.). 88-Not Attempted due to Medical Conditions or Safety Concerns. Lying to Sitting/Side of Bed(Q: 6 Sit to Stand (QC): 6 Chair/Rfy-gw-Dpqcq Xfer(QC): 6 Gait Training Does the Patient Walk?: Yes Distance: 200' in room Walk 10 feet (QC): 6 Walk 50 ft with 2 Turns(QC): 6 Walk 150 ft (QC): 6 Gait Assistive Device: None steady, functional gait sequence Assessment SAO2 remains 88% to 92% with activity and O2 in place. Patient up in recliner with needs met. Patient instructed to ambulate PRN in room and demonstrated ability to negotiate O2 tubing and simon catheter. PT Short Term Goals Short Term Goals Time Frame: Sep 21, 2020 Roll Left & Right: 6 Sit to lyin Lying to sitting on side of be: 6 Sit to stand: 4 Chair/lqs-gd-pzlmu transfer: 4 Toilet transfer: 4 Walk 10 feet: 4 PT Custodial Goals [employer]er Goals PT Custodial Goals Time Frame: Oct 05, 2020 Roll Left & Right (QC): 6 Sit to Lying (QC): 6 Lying-Sitting on Side/Bed(QC): 6 Sit to Stand (QC): 6 Chair/Kut-tu-Pklxb Xfer(QC): 6 Toilet Transfer (QC): 6 Walk 10 feet (QC): 6 Walk 50ft with 2 Turns (QC): 6 Walk 150 ft (QC): 6 PT Plan Treatment/Plan Treatment Plan: Continue Plan of Care Treatment Plan: Education, Functional Activity Saud, Functional Strength, Gait, Safety, Therapeutic Exercise, Transfers Treatment Duration: Oct 19, 2020 Frequency: 6 times per week Estimated Hrs Per Day: .25 hour per day Patient and/or Family Agrees t: Yes Time/GCodes Time In: 749 Time Out: 801 Total Billed Treatment Time: 12 Total Billed Treatment 1 visit FA 12 min ESPERANZA OTERO PT Sep 14, 2020 08:51
--- NOTE | 2020-09-14 09:17 | Tele-ICU Progress Note ---
Progress Note 64 y/o male with Covid PNA Admitte dto ICU for hypoxemia Currently comfortable sitting up in chair, eating breakfast. Labs: WBC 6.2 Hgb: 13.5 Plts: 261 Chem: normal Onlovenox, decadron annd ceftriaxone. PLAN: continue O2 therapy as needed. Focused Exam Height, Weight, BMI Height: 5'10.00" Weight: 195lbs. 8.0oz. [id number]; 30.38 BMI Method: MARISA OBRIEN MD Sep 14, 2020 09:17
--- NOTE | 2020-09-14 11:25 | Progress Note ---
Subjective Subjective Date Seen by Provider: Sep 14, 2020 Time Seen by Provider: 10:00 Sitting up in a recliner- conversing well- reports he is feeling even better. No longer on vapotherm. On 4L oxygen via NC. He is wanting to go home and spirits are improved knowing the improvement he has made the last 2 days has made it possible for him to go home tomorrow as long as he continues to improve today and tonight. Review of Systems General: No Chills, No Night Sweats HEENT: No Head Aches Pulmonary: No Dyspnea (improving); Cough, Other Cardiovascular: No: Chest Pain, Palpitations Gastrointestinal: Other (taste and smell decreased but improving); No: Nausea, Vomiting Genitourinary: No Dysuria Musculoskeletal: No: neck pain Neurological: Weakness; No: Confusion All Other Systems Reviewed All Other Systems Reviewed: Yes Objective Exam Vital Signs Vital Signs Date Time Temp Pulse Resp B/P (MAP) Pulse Ox O2 Delivery O2 Flow Rate FiO2 09/14/20 11:11 92 Nasal Cannula 4.00 09/14/20 08:00 65 14 91 High Flow N/C 5.00 09/14/20 08:00 High Flow N/C 4.00 09/14/20 07:59 93 Nasal Cannula 4.00 09/14/20 07:00 63 09/14/20 07:00 59 13 149/91 (110) 94 High Flow N/C 5.00 09/14/20 06:00 56 12 167/112 (130) 93 High Flow N/C 5.00 09/14/20 05:00 55 25 118/73 (88) 94 High Flow N/C 5.00 09/14/20 04:13 High Flow N/C 4.00 09/14/20 04:00 37.0 High Flow N/C 4.00 09/14/20 04:00 58 12 108/75 (86) 95 High Flow N/C 5.00 09/14/20 03:00 66 16 130/85 (100) 93 High Flow N/C 5.00 09/14/20 02:53 High Flow N/C 5.00 09/14/20 02:46 96 High Flow N/C 4.00 09/14/20 02:00 61 13 111/77 (88) 95 High Flow N/C 7.00 09/14/20 01:00 63 09/14/20 01:00 63 14 114/79 (91) 93 High Flow N/C 7.00 09/14/20 00:00 59 15 107/74 (85) 91 High Flow N/C 7.00 09/13/20 23:29 High Flow N/C 7.00 09/13/20 23:28 37.2 High Flow N/C 7.00 09/13/20 23:00 62 12 110/69 (83) 94 High Flow N/C 9.00 09/13/20 22:08 95 High Flow N/C 7.00 09/13/20 22:00 67 15 111/74 (86) 98 High Flow N/C 9.00 09/13/20 21:00 72 17 97/66 (76) 95 High Flow N/C 9.00 09/13/20 20:14 High Flow N/C 9.00 09/13/20 20:00 79 22 144/92 (109) 93 High Flow N/C 9.00 09/13/20 19:55 79 18 129/86 (100) 94 High Flow N/C 9.00 09/13/20 19:32 High Flow N/C 9.00 09/13/20 19:20 94 High Flow N/C 9.00 09/13/20 19:10 36.8 09/13/20 19:00 76 09/13/20 19:00 75 11 155/141 (146) 90 Vapotherm 10.00 30.00 09/13/20 18:00 73 19 129/90 (103) 92 Vapotherm 10.00 30.00 09/13/20 17:00 73 10 108/65 (79) 96 Vapotherm 10.00 30.00 09/13/20 16:30 93 Vapotherm 10.00 30 09/13/20 16:00 82 11 121/90 (100) 94 Vapotherm 10.00 30.00 09/13/20 15:56 36.6 09/13/20 15:01 Vapotherm 10.00 30.00 09/13/20 15:00 78 14 101/64 (76) 97 Vapotherm 20.00 45.00 09/13/20 14:51 96 Vapotherm 25.00 45 09/13/20 14:00 82 19 108/85 (93) 97 Vapotherm 20.00 45.00 09/13/20 13:00 82 9 106/84 (91) 94 Vapotherm 20.00 45.00 09/13/20 12:30 72 09/13/20 12:15 96 Vapotherm 20.00 40 09/13/20 12:00 72 7 106/77 (87) 98 Vapotherm 20.00 45.00 09/13/20 11:59 97 Vapotherm 25.00 55 I & O 09/14/20 07:00 Intake Total 2450 ml Output Total 3375 ml Balance -925 ml General Appearance: No Apparent Distress; No Anxious, No Mild Distress, No Moderate Distress Eyes: Bilateral Eye Normal Inspection, Bilateral Eye PERRL, Bilateral Eye EOMI HEENT: PERRL/EOMI Neck: Full Range of Motion, Normal Inspection, Non Tender, Supple Respiratory: Chest Non Tender, Normal Breath Sounds, No Respiratory Distress Cardiovascular: Regular Rate, Rhythm, No Murmur Gastrointestinal: Normal Bowel Sounds, Non Tender, Soft Rectal: Deferred Back: Normal Inspection, No CVA Tenderness, No Vertebral Tenderness Extremity: No Calf Tenderness, No Pedal Edema Neurologic/Psychiatric: Alert, Oriented x3 Skin: Normal Color, Warm/Dry Lymphatic: No Adenopathy Results Lab Laboratory Tests 09/14/20 02:58: White Blood Count 6.2, Red Blood Count 4.40, Hemoglobin 13.5, Hematocrit 40, Me an Corpuscular Volume 92, Mean Corpuscular Hemoglobin 31, Mean Corpuscular Hemoglobin Concent 33, Red Cell Distribution Width 13.1, Platelet Count 261, Mean Platelet Volume 10.0, Immature Granulocyte % (Auto) 1, Neutrophils (%) (Auto) 77H, Lymphocytes (%) (Auto) 12, Monocytes (%) (Auto) 10, Eosinophils (%) (Auto) 0, Basophils (%) (Auto) 0, Neutrophils # (Auto) 4.8, Lymphocytes # (Auto) 0.7L, Monocytes # (Auto) 0.6, Eosinophils # (Auto) 0.0, Basophils # (Auto) 0.0, Immature Granulocyte # (Auto) 0.1, Sodium Level 140, Potassium Level 4.2, Chloride Level 105, Carbon Dioxide Level 21, Anion Gap 14, Blood Urea Nitrogen 21H, Creatinine 0.73, Estimat Glomerular Filtration Rate > 60, BUN/Creatinine Ratio 29, Glucose Level 93, Calcium Level 8.4L, Phosphorus Level 4.2, Magnesium Level 2.2, Total Bilirubin 0.6, Direct Bilirubin 0.3, Indirect Bilirubin 0.3, Aspartate Amino Transf (AST/SGOT) 77H, Alanine Aminotransferase (ALT/SGPT) 284H, Alkaline Phosphatase 100, Total Protein 6.1L, Albumin 2.9L Microbiology 09/06/20 MRSA Screen - Final, Complete MRSA not isolated Assessment/Plan Assessment/Plan Assessment and Plan 09/02/20- stopped IVF. monitoring LFTs, about the same. on 5L oxygen but not working hard to breath at all. Encouraged him to get up and walk around the room. will start azithromycin for 5 days to cover for pneumonia -continue covid protocol- dexamethasone. 09/03/20- stopping remdesivir as he is improving and started improving prior to starting it. LFTs higher today. Encourage Incentive spirometry. Updated sister, she is rightfully concerned. But he is not working hard to breath. We will do a trial of vapotherm and see how he does with it. 09/04/20- on vapotherm- switched to 10L NC- and holding oxygen saturation 93- 94%. WBC, Hgb, platelets normal. LFTs elevated more today. Will give him an additional dose of dexamethasone 10mg one time via IV. Ordered a chest xray. ABG from yesterday looks to be venous and not arterial. He is slowly improving. I would like to get him home 09/06/20 09/05/20- a little set back with panic attack today. Gave him 0.5mg lorazepam IV to help calm him down. Lungs were completely clear on auscultation. He was looking good this AM- ate all his breakfast and was feeling good until he took a shower then the panic attack hit him. Tried to go to 10L high flow- did not stay >90% so put back on vapotherm. 09/06/20- definitely a mental component- not use to being in the hospital, "COVID brain". Patient is not working hard to breath but is requiring Vapot herm to keep his oxygen sats above 90%. He has xanax 0.5mg BID prn that seems to help with his anxiety and panic attacks. Transferred to ICU due to increase in Vapotherm need but turns out to be more of panic attack rather than escalation in oxygen needs. Likely to transfer back to [facility] in the next day. Consulted Pulm. Day 11 of symptoms. CXR improve compared to 2 days ago. 09/09/20- on BiPAP will try to get him down to Vapotherm today. He is not hungry. He has not been drinking much fluid since getting the bipap. Will add on D5LR @125ml/hr until he starts taking po. He has started to improve. He agrees with not giving up. LFTs up again. Continue dexamethasone, lovenox. Still positive for COVID. Would like to find out what variant. 09/10/20- on vapotherm. Continue lovenox, dexamethasone. Checking LFTs tomorrow. Slowly improving. Prognosis guarding but a little better. 09/11/20- decreased IVF to 75ml/hr since he is eating/drinking better. Added on rocephin 1g daily to broaden coverage as his CXR isnt better. Improvement on his oxygen requirement though. And patient reports he is doing better, feeling better. 09/12/20- He is making good improvement in the last couple days- continue current regimen. I would like to keep him inpatient and not send him to [place] as his psych likely would not handle it. He may be able to transfer down to 4th floor tomorrow or Wednesday. Increased buspar to BID. 09/13/20- continuing to improve - RT to continue titrating vapotherm down and l ikely back to high flow oxygen over this weekend. May transfer to the floor if bed availability in ICU is needed. Otherwise transfer to floor in AM. 09/14/20- on 4L oxygen, sating 93-94%- will need to do home oxygen test with RT. Possible discharge to home tomorrow 09/15/20 if we can get oxygen arranged. Will continue dexamethasone po for another week. He may continue melatonin. D/C simon- Patient to take a shower today. dispo: continue inpatient- Getting closer to going home. DVT ppx: lovenox. Problems: (1) COVID-19 (2) Elevated liver enzymes (3) Acute respiratory failure with hypoxia (4) Anxiety Assessment & Plan: on buspar, xanax prn (5) Stress WILBUR MYLES MD Sep 14, 2020 11:25
[2020-09-14] MEDS: ENOXAPARIN 40 MG/0.4 ML (LOVENOX) SYR SC SCH (20:26)
[2020-09-14] MEDS: MELATONIN 10 MG TABLET PO SCH (20:26)
[2020-09-15 00:53] VITALS: BP 128/77
[2020-09-15] MEDS: RT-ALBUTEROL INHALER HFA (VENTOLIN HFA) 18 GM IH SCH ×3 (02:25→10:29)
[2020-09-15 04:00] VITALS: BP 131/75
[2020-09-15 06:10] LABS: BASOPHILS % (AUTO) 0 % (0-10); EOSINOPHILS % (AUTO) 0 % (0-10); HEMATOCRIT 41 % (40-54); HEMOGLOBIN 13.5 g/dL (13.3-17.7); LYMPHOCYTES % (AUTO) 16 % (12-44); MEAN CORPUSCULAR HEMOGLOBIN 31 pg (25-34); MEAN CORPUSCULAR HGB CONC 33 g/dL (32-36); MEAN CORPUSCULAR VOLUME 92 fL (80-99); MEAN PLATELET VOLUME 9.4 fL (9.0-12.2); MONOCYTES # (AUTO) 0.6 10^3/uL (0.0-1.0); MONOCYTES % (AUTO) 10 % (0-12); NEUTROPHILS # (AUTO) 4.6 10^3/uL (1.8-7.8); NEUTROPHILS % (AUTO) 73 % (42-75); PLATELET COUNT 260 10^3/uL (130-400); WHITE BLOOD COUNT 6.3 10^3/uL (4.3-11.0)
[2020-09-15 06:16] LABS: CHLORIDE 104 MMOL/L (98-107); SODIUM 139 MMOL/L (135-145)
[2020-09-15 06:17] LABS: CALCIUM 8.4 MG/DL (8.5-10.1)
[2020-09-15 06:18] LABS: GLUCOSE 90 MG/DL (70-105)
[2020-09-15 06:19] LABS: CARBON DIOXIDE 23 MMOL/L (21-32)
[2020-09-15] MEDS: KCL 20 MEQ TAB (K-DUR) PO SCH (06:19)
[2020-09-15] MEDS: POTASSIUM CL 10MEQ/50ML IVPB 50 ML IV SCH (06:19)
[2020-09-15 06:21] LABS: PHOSPHORUS 3.4 MG/DL (2.3-4.7)
[2020-09-15 06:22] LABS: CREATININE SERUM 0.76 MG/DL (0.60-1.30); GFR ESTIMATED > 60
[2020-09-15 06:23] LABS: BUN/CREATININE RATIO 29
[2020-09-15 06:24] LABS: MAGNESIUM 2.2 MG/DL (1.6-2.4)
[2020-09-15] MEDS: MAGNESIUM 1 GM/100 ML IVPB 100 ML IV SCH (06:26)
[2020-09-15 08:30] VITALS: BP 111/65
[2020-09-15] MEDS: FAMOTIDINE 20 MG (PEPCID) TABLET PO SCH (08:32)
[2020-09-15] MEDS: busPIRone 5 MG (BUSPAR) TAB PO SCH (08:32)
[2020-09-15] MEDS: cefTRIAXone 1,000 MG in WATER (STERILE) FOR INJECTION 10 ML IV SCH (08:33)
[2020-09-15 11:05] VITALS: BP 111/65
[2020-09-15] MEDS ORDERED: MELA10TA2 PO (11:47)
[2020-09-15] MEDS ORDERED: BUSP5TAB59 PO (11:47)
[2020-09-15] MEDS ORDERED: DEXA6TAB PO (11:47)
[2020-09-15] MEDS ORDERED: ASPI-999 PO (11:48)
--- NOTE | 2020-09-15 11:56 | Discharge Summary ---
Discharge Summary Hospital Course Was the Problem List Reviewed?: Yes Problems/Dx: (1) COVID-19 Status: Acute (2) Elevated liver enzymes (3) Acute respiratory failure with hypoxia (4) Anxiety (5) Stress Hospital Course Date of Admission: Sep 01, 2020 at 13:44 Admission Diagnosis : Family Physician/Provider: Galo Myles MD Date of Discharge: 09/15/20 Discharge Diagnosis: [ ] Hospital Course: [ ] Labs and Pending Lab Test: Laboratory Tests 09/15/20 06:01: White Blood Count 6.3, Red Blood Count 4.40, Hemoglobin 13.5, Hematocrit 41, Mean Corpuscular Volume 92, Mean Corpuscular Hemoglobin 31, Mean Corpuscular Hemoglobin Concent 33, Red Cell Distribution Width 13.0, Platelet Count 260, Mean Platelet Volume 9.4, Immature Granulocyte % (Auto) 1, Neutrophils (%) (Auto) 73, Lymphocytes (%) (Auto) 16, Monocytes (%) (Auto) 10, Eosinophils (%) (Auto) 0, Basophils (%) (Auto) 0, Neutrophils # (Auto) 4.6, Lymphocytes # (Auto) 1.0, Monocytes # (Auto) 0.6, Eosinophils # (Auto) 0.0, Basophils # (Auto) 0.0, Immature Granulocyte # (Auto) 0.0, Sodium Level 139, Potassium Level 4.0, Chloride Level 104, Carbon Dioxide Level 23, Anion Gap 12, Blood Urea Nitrogen 22H, Creatinine 0.76, Estimat Glomerular Filtration Rate > 60, BUN/Creatinine Ratio 29, Glucose Level 90, Calcium Level 8.4L, Phosphorus Level 3.4, Magnesium Level 2.2 Microbiology 09/06/20 MRSA Screen - Final, Complete MRSA not isolated Home Meds Active Aspirin 81 Mg Tab.chew 81 Mg PO DAILY Dexamethasone 6 Mg Tablet 6 Mg PO DAILY 7 Days Melatonin 10 Mg Tablet 10 Mg PO HS Buspirone HCl 5 Mg Tablet 5 Mg PO BID 14 Days Reported Advil (Ibuprofen) 200 Mg Tablet 200 Mg PO Q4- 6H PRN Multivitamin 1 Each Tablet 1 Each PO DAILY Vitamin D3 (Cholecalciferol (Vitamin D3)) 125 Mcg Tablet 125 Mcg PO DAILY Assessment/Pt Instructions You will be taking dexamethasone 6mg for 1 week buspirone 5mg twice daily for 1 week then go down to 1 tablet daily until you are out. melatonin (over the counter) 10mg at bedtime may stop when you chose to. aspirin 81mg daily oxygen 4L continuous- spot check your oxygen with the finger sensor a couple times per day. This will be the deciding factor on when we stop your oxygen. -gradually get back into your daily routine. follow up at [facility] in 7-10 days Discharge Planning: >30 minutes discharge planning Discharge Instructions Discharge Diet: No Restrictions, Regular Diet Activity as Tolerated: Yes Discharge Physical Examination Vital Signs Vital Signs Date Time Temp Pulse Resp B/P (MAP) Pulse Ox O2 Delivery O2 Flow Rate FiO2 09/15/20 11:05 36.8 85 91 09/15/20 10:39 Nasal Cannula 4.00 09/15/20 08:30 18 111/65 (80) 09/13/20 16:30 30 General Appearance: No Apparent Distress HEENT: PERRL/EOMI Respiratory: Lungs Clear, Normal Breath Sounds, No Accessory Muscle Use, No Respiratory Distress Cardiovascular: Regular Rate, Rhythm, No Edema Gastrointestinal: Non Tender, Soft Extremity: Non Tender, No Calf Tenderness Skin: Normal Color, Warm/Dry Neurologic/Psychiatric: Alert, Oriented x3, Normal Mood/Affect Allergies: Coded Allergies: No Known Drug Allergies (Unverified , 07/22/16) Discharge Summary Date of Admission Sep 01, 2020 at 13:44 Date of Discharge Comfort Measures/ Time spent on discussion (min): 35 Discharge Diagnosis (1) COVID-19 Status: Acute (2) Elevated liver enzymes (3) Acute respiratory failure with hypoxia (4) Anxiety Assessment & Plan: on buspar, xanax prn (5) Stress GALO MYLES MD Sep 15, 2020 11:55
[2020-09-15 12:20] VITALS: BP 103/63
[2020-09-15] MEDS ORDERED: RT-ALBUTEROL INHALER HFA (VENTOLIN HFA) 18 GM IH SCH (15:00)
== END 2020-09-15 15:35 | disposition home or self-care (01) | DRG 177 ==
LOC: EDUNIT# 12:05 → ER 12:07 → 4TH 13:44 → ICU 09-06 11:27 → 4TH 09-14 09:24
PROVIDERS: ADMIT Family Medicine; ATTEND Family Medicine
PROC: XW033E5 Introduction of Remdesivir Anti-infective into Peripheral Vein, Percutaneous Approach, New Technology Group 5 (ICD-10-PCS; principal; 2020-09-01)
PROC: 5A09457 Assistance with Respiratory Ventilation, 24-96 Consecutive Hours, Continuous Positive Airway Pressure (ICD-10-PCS; 2020-09-07)
DX: U07.1 COVID-19 (principal); J96.01 Acute respiratory failure with hypoxia; J12.82 Pneumonia due to coronavirus disease 2019; R57.9 Shock, unspecified; Z87.891 Personal history of nicotine dependence; F41.9 Anxiety disorder, unspecified; F43.9 Reaction to severe stress, unspecified; R03.0 Elevated blood-pressure reading, without diagnosis of hypertension; R74.01 Elevation of levels of liver transaminase levels
CPT/HCPCS: 36415; 36600; 71045; 71275; 80048; 80053; 80076; 81000; 82805; 82947; 83735; 84100; 84145; 85007; 85025; 85027; 85379; 86141; 87081; 87636; 94640; 94660; 94760; 94761